=== PATIENT | male | born 1945 | race Caucasian/White ===

== ENCOUNTER 2022-06-20 11:02 | Outpatient (REF) | payer OTHER, SELFPAY ==
[2022-06-20 14:10] LABS: MANUAL DIFF FLAG NO
[2022-06-20 14:15] LABS: Basophils Absolute Auto 0.1 X10*3/uL (0.0-0.2); Eosinophils Absolute Auto 0.2 X10*3/uL (0.0-0.4); Eosinophils Percent Auto 2.2 % (0-4); Hemoglobin 13.7 g/dl (14.0-18.0); Imm Gran Abs Auto 0.03 X10*3/uL (0.00-0.03); Imm Gran Pct Auto 0.4 % (0.0-0.4); Lymphocytes Absolute Auto 2.3 X10*3/uL (1.2-4.9); Lymphocytes Percent Auto 31.8 % (20-40); Mean Corpuscular HGB Conc 31.9 g/dl (31.0-36.0); Mean Corpuscular Hemoglobin 29.1 pg (27.0-33.0); Mean Corpuscular Volume 91.5 fL (80.0-98.0); Mean Platelet Volume 9.9 fL (9.4-12.4); Monocytes Absolute Auto 0.8 X10*3/uL (0.1-1.2); Monocytes Percent Auto 11.1 % (2-11); Neutrophils Absolute Auto 3.8 x10*3/uL (2.0-8.3); Neutrophils Percent Auto 53.5 % (45-73); Platelet Count 325 X10*3/uL (160-400); Red Cell Distribution Width 13.2 % (11.0-16.0); White Blood Count 7.2 X10*3/uL (4.8-10.8)
[2022-06-20 14:26] LABS: Alanine Aminotransferase 29 U/L (0-40); Albumin Level 4.3 g/dL (3.5-5.0); Alkaline Phosphatase 78 U/L (39-117); Anion Gap 14 (12-20); Aspartate Amino Transferase 26 U/L (5-37); Bilirubin Total 0.3 mg/dL (0.0-1.0); Blood Urea Nitrogen 13 mg/dL (9-16); Calcium 10.2 mg/dL (8.4-10.2); Carbon Dioxide 27 mmol/L (22-29); Chloride 104 mmol/L (96-108); Cholesterol 146 mg/dL; Estimated Glomerular Filt Rate > 60; Glucose Fasting 93 mg/dL (60-99); HDL Cholesterol 61 mg/dL; LDL Cholesterol Calculated 67 mg/dl; Potassium 4.9 mmol/L (3.3-5.1); Sodium 140 mmol/L (135-145); Total Protein 7.1 g/dL (6.5-8.0); Triglycerides 94 mg/dL
[2022-06-20 14:54] LABS: Prostate Specific Antigen Scr 4.67 ng/mL (<0.05-4.0)
== END 2022-06-20 11:03 | disposition home or self-care (01) ==
LOC: HO.10HDL 11:02
PROVIDERS: Visit Provider Internal Medicine
DX: Z12.5 Encounter for screening for malignant neoplasm of prostate (principal); I10 Essential (primary) hypertension; E78.00 Pure hypercholesterolemia, unspecified; R35.1 Nocturia
CPT/HCPCS: 36415; 80053; 80061; 84153; 85025

== ENCOUNTER 2022-07-25 10:48 | Outpatient (REF) | payer OTHER, SELFPAY ==
--- NOTE | ~2022-07-25 | MR_ITS ---
EXAMINATION: MR BRAIN WITHOUT AND WITH CONTRAST CLINICAL INFORMATION: Left sensorineural hearing loss COMPARISON: None TECHNIQUE: Multiplanar multisequence MR imaging of the brain was obtained without and following the administration of 9 mL Gadavist intravenous contrast. FINDINGS: The 7th and 8th cranial nerve complexes are symmetric in course, caliber, and enhancement characteristics. Major inner ear structures including the cochlea, semicircular canals, and vestibule are symmetric in morphology and demonstrate normal CSF signal. No enhancing intracanalicular or cerebellopontine angle mass lesion is visualized. There is no acute infarct on diffusion-weighted imaging. There is no intracranial hemorrhage on iron-sensitive imaging. No extra-axial collection or mass effect/herniation. Scattered periventricular and deep white matter T2 FLAIR hyperintensities consistent with mild underlying microangiopathy. No hydrocephalus. The ventricles are normal in morphology and size. No abnormal parenchymal or extra-axial enhancement. The major flow voids at the skull base are preserved. The midline structures are normal. The cerebellar tonsils are normally positioned. The craniocervical junction is normal. Marrow signal is within normal limits. The visualized soft tissues are without significant abnormality. Left mastoid effusion. MR/MR head/brain wo/w con IMPRESSION: 1. No evidence of retrocochlear pathology 2. Left mastoid effusion
--- NOTE | ~2022-07-25 | XR_ITS ---
EXAMINATION: PRE-MRI SCREENING NECK. CLINICAL INFORMATION: Remote history of parotid surgery and radiation seeds COMPARISON: None TECHNIQUE: 2 views. FINDINGS: There are several surgical danielle seen in the right parotid region from previous surgery. No radiation metallic seeds are seen at this time. Visualized sinuses and mastoid air cells are clear. There is grade 1 anterolisthesis C4 over C5 with degenerative disc changes C5-C6 and C6-C7 disc levels with ventral and posterior spondylosis. No acute fracture or dislocation seen. XR/XR pre mri screening IMPRESSION: 1. Several surgical danielle are seen in the right parotid region from previous surgery. No radiation metallic seeds are seen at this time. 2. Grade 1 anterolisthesis C4 over C5 with degenerative disc changes C5-C6 and C6-C7 disc levels.
== END 2022-07-25 10:49 | disposition home or self-care (01) ==
LOC: HO.MRI 10:48
PROVIDERS: Visit Provider Otolaryngology
DX: D33.3 Benign neoplasm of cranial nerves (principal); H90.42 Sensorineural hearing loss, unilateral, left ear, with unrestricted hearing on the contralateral side
CPT/HCPCS: 70553; A9585

== ENCOUNTER 2022-11-12 14:42 | Outpatient (REF) | payer OTHER, SELFPAY ==
--- NOTE | ~2022-11-12 | XR_ITS ---
EXAMINATION: XR CHEST CLINICAL INFORMATION: Wheezing and cough x2 weeks COMPARISON: None TECHNIQUE: 2 views of the chest were obtained. FINDINGS: No significant abnormality is noted involving the heart, lungs, mediastinum, bony thorax or soft tissues. XR/XR chest 2V IMPRESSION: Unremarkable chest examination.
== END 2022-11-12 14:43 | disposition home or self-care (01) ==
LOC: HO.XRAY 14:42
PROVIDERS: PCP Internal Medicine; Visit Provider Internal Medicine
DX: R05.9 Cough, unspecified (principal); R06.2 Wheezing
CPT/HCPCS: 71046

== ENCOUNTER 2023-03-27 09:15 | Outpatient (REF) | payer OTHER, SELFPAY ==
[2023-03-27 12:02] LABS: Anion Gap 10 (12-20); Blood Urea Nitrogen 9 mg/dL (9-16); Carbon Dioxide 27 mmol/L (22-29); Chloride 108 mmol/L (96-108); Estimated Glomerular Filt Rate > 60; Glucose Random 93 mg/dL (60-115); Potassium 4.5 mmol/L (3.3-5.1); Sodium 140 mmol/L (135-145)
[2023-03-27 14:49] LABS: PSA,Total (Free>4and<10) 4.71 ng/mL (0.00-4.00)
[2023-03-28 12:28] LABS: Free Prostate Spec Ag 0.9 ng/mL; Percent Free Prostate Spec Ag 18 % (calc) (>25); Prostate Specific Ag Total 4.9 ng/mL (< OR = 4.0)
== END 2023-03-27 09:16 | disposition home or self-care (01) ==
LOC: HO.WFDLDS 09:15
PROVIDERS: Visit Provider Internal Medicine
DX: Z12.5 Encounter for screening for malignant neoplasm of prostate (principal); I10 Essential (primary) hypertension; R97.20 Elevated prostate specific antigen [PSA]
CPT/HCPCS: 36415; 80048; 84153; 84154

== ENCOUNTER 2023-06-24 07:54 | Outpatient (REF) | payer OTHER, SELFPAY ==
[2023-06-24 12:14] LABS: PSA,Total (Free>4and<10) 6.42 ng/mL (0.00-4.00)
[2023-06-25 10:54] LABS: Percent Free Prostate Spec Ag 17 % (calc) (>25); Prostate Specific Ag Total 5.9 ng/mL (< OR = 4.0)
== END 2023-06-24 07:55 | disposition home or self-care (01) ==
LOC: HO.WFDLDS 07:54
PROVIDERS: Visit Provider Internal Medicine
DX: Z12.5 Encounter for screening for malignant neoplasm of prostate (principal); R97.20 Elevated prostate specific antigen [PSA]
CPT/HCPCS: 36415; 84153; 84154

== ENCOUNTER 2023-08-09 09:53 | Outpatient (AMB) | payer OTHER, SELFPAY ==
--- NOTE | 2023-08-09 10:02 | A.OFFVIS_ITS ---
Intake Intake Visit Reasons: Elevated PSA free 17 Intake Note: New Patient presents for initial visit for elevated psa (psa 6.42) Urology Medications: none Blood Thinner: none Time Study Engineer Required: No Accompanied by: Self / Same As Patient Allergies codeine Allergy (Verified 08/09/23 11:02) Fainting Medication List - Last Reconciled 08/09/23 by MAURICE Rendon lorazepam 0.5 mg PO TID PRN losartan 50 mg PO DAILY omeprazole 40 mg PO DAILY simvastatin 20 mg PO BEDTIME HPI HPI Comments History of Present Illness Details Zach Ford is a very pleasant 78-year-old male patient of Dr. Hernández. He has a past medical history of anxiety, allergic rhinitis, hypercholesteremia, GERD, hypertension, and overweight. He presents to the office today as a new patient for elevated PSA. In discussion with the patient today reports following up with his PCP at which time his PSA was noted to be elevated and recommendations were made for urology referral. PSAs are as follows: 06/23--4.7 03/24--4.9 and% free PSA 18 06/24--6.4 06/24--6.0 and% free PSA 17 Discussed at length potential causes for elevated PSA. He does report nocturia up to 3 times per night however does not find this bothersome. He otherwise denies any urinary issues or concerns at this time. He denies urinary urgency, urinary frequency, incontinence, hematuria, dysuria, foul smelling urine, changes to urinary stream, flank pain, fever, and or chills. He is happy with his current voiding parameters. He discusses having been in the as well as recently losing his . He discusses having had 2 marriages and losing both of his wives. In office LUPE performed; smooth and no suspicious nodules palpated. In office urinalysis results reviewed with the patient today. When asked he denies any known family history of prostate cancer. He otherwise offers no other issues or concerns at this time. REPLACED BY [facility] Medical History (Updated 08/09/23 @ 11:01 by MAURICE Rendon) Generalized anxiety disorder Allergic rhinitis due to pollen Benign prostatic hyperplasia without lower urinary tract symptoms Persons encountering health services in other specified circumstances Pure hypercholesterolemia, unspecified Gastro-esophageal reflux disease without esophagitis Essential (primary) hypertension Acute cough Wheezing Overweight Elevated prostate specific antigen [PSA] Review of Systems Const Reports as per HPI Eyes Reports no additional complaints ENT Reports no additional complaints Card Reports as per HPI Resp Reports no additional complaints GI Reports as per HPI Reports as per HPI Musc Reports no additional complaints Neuro Reports no additional complaints Psych Reports no additional complaints Endo Reports no additional complaints Jorge/Lymph Reports no additional complaints Aller/Immun Reports no additional complaints Physical Exam Const General: cooperative, healthy appearing, comfortable, no acute distress, well developed, alert and awake Orientation/consciousness: patient oriented x3 Limitations: wheelchair HEENT Head: Yes normal to inspection, Yes normocephalic and Yes atraumatic Ears: hearing grossly normal bilaterally Eyes General: appearance normal, both eyes and all related structures Neck Neck: Yes normal visual inspection and Yes trachea midline Chest Chest palpation & inspection: normal inspection of the chest Resp Effort & Inspection: normal respiratory effort and able to speak in complete sentences Cardio Rate: regular rate GI Inspection: Yes normal to inspection Rectal Exam - Male: Yes visual inspection normal, Yes normal sphincter tone and Yes prostate normal General: Yes no CVA tenderness Back/Spine/Pelvis Back: no CVA tenderness Skin General skin exam: no rashes or lesions noted Neuro General: patient oriented x3 Extrem General: Yes normal to inspection Psych Appearance: grossly normal and well kempt Mental Status: mental status grossly normal Speech and movement: Normal speech and movement present and Clear speech present Affect: normal affect Attitude: cooperative Thought process: Normal thought process present Thought content: Normal thought content present Insight: Good insight present (Psych) Judgement: Good judgement present (Psych) Results AMB Urinalysis, Automated UA Leukoctes 0 Conchita/uL Last Edit by [employer] on 08/09/23 10:41 UA Nitrite Negative Last Edit by [employer] on 08/09/23 10:41 UA Urobilinogen 0.2 mg/dL Last Edit by [employer] on 08/09/23 10:41 UA Protein 15 mg/dL Last Edit by [employer] on 08/09/23 10:41 UA pH 6.0 Last Edit by [employer] on 08/09/23 10:41 UA Blood 0 Stevie/uL Last Edit by [employer] on 08/09/23 10:41 UA Specific [place] 1.025 Last Edit by [employer] on 08/09/23 10:41 UA Ketone Negative Last Edit by Barry Valerio on 08/09/23 10:41 UA Bilirubin 0 mg/dL Last Edit by Barry Valerio on 08/09/23 10:41 UA Glucose 0 mg/dL Last Edit by Barry Valerio on 08/09/23 10:41 Results Reviewed Results Reviewed: Laboratory Last Values Urine pH (Auto) 6.0 08/09/23 10:37 Specific [place] (Auto) 1.025 08/09/23 10:37 Urine Protein (Auto) 15 mg/dL 08/09/23 10:37 Glucose (UA)(Auto) 0 mg/dL 08/09/23 10:37 Urine Ketones (Auto) Negative 08/09/23 10:37 Urine Blood (Auto) 0 Stevie/uL 08/09/23 10:37 Urine Nitrite (Auto) Negative 08/09/23 10:37 Urine Bilirubin (Auto) 0 mg/dL 08/09/23 10:37 Urine Urobilinogen (Auto) 0.2 mg/dL 08/09/23 10:37 Leukocyte Esterase (Auto) 0 Conchita/uL 08/09/23 10:37 Assessment & Plan Assessment & Plan (1) Nocturia: Code(s): R35.1 - Nocturia (2) Elevated prostate specific antigen [PSA]: Code(s): R97.20 - Elevated prostate specific antigen [PSA] Plan In office urinalysis results reviewed with the patient today; as noted above. Recent PSA results reviewed with the patient today; as noted above. LUPE; smooth and no suspicious nodules palpated. Discussed at length potential causes for elevated PSA Discussed redraw of PSA with no sex the night before, no caffeine morning of, no heavy lifting 1-2 days prior. Discussed obtaining retroperitoneal ultrasound for further assessment evaluation. Patient otherwise denies any bothersome urinary issues or concerns. Patient reports to be happy with current voiding parameters. Follow-up in 1-2 months with labs and imaging to be completed prior; or sooner with any issues, concerns, and or questions. Orders: Orders PSA,Total (Free>4and<10) 08/09/23 R97.20 - Elevated prostate specific antigen [PSA] AMB Urinalysis Automated 08/09/23 Z13.9 - Encounter for screening, unspecified US retroperitoneal comp 08/09/23 R35.1 - Nocturia, R97.20 - Elevated prostate specific antigen [PSA] Patient Instructions: The patient had an opportunity to ask questions regarding the treatment plan. All questions were answered. Physical exam, labs, and imaging were discussed and reviewed in detail. As well as risks, benefits, and discussion of treatment choices. No major barriers to understanding were identified. The patient expressed understanding and agreement with the above treatment plan. The patient was made aware they should contact our office by phone for worsening of their current condition, the appearance of new symptoms, or with any questions or concerns. Compliance is encouraged with any medications and follow up testing that is ordered. It is a privilege to be allowed the opportunity to participate in? your urological care.? Again, if you have any questions or concerns If you have any questions or concerns please do not hesitate to contact me. The office is [phone]. This note is constructed using voice recognition software. While every effort has been made to ensure accuracy environmental director errors may have been included. Yours sincerely, MAURICE Rendon Coding Level of Care Code New Pt Level 3 (78066) Diagnoses Nocturia R35.1 Elevated prostate specific antigen [PSA] R97.20
== END 2023-08-09 10:35 | disposition home or self-care (01) ==
PROVIDERS: PCP Internal Medicine; Visit Provider Nurse Practitioner Family
DX: R35.1 Nocturia (principal); R97.20 Elevated prostate specific antigen [PSA]
CPT/HCPCS: 99203

== ENCOUNTER → 2023-08-09 09:53 | Outpatient (BNVA) | payer OTHER, SELFPAY | PROVIDERS: PCP Internal Medicine; Visit Provider Nurse Practitioner Family | DX: R35.1 Nocturia (principal); R97.20 Elevated prostate specific antigen [PSA] | CPT/HCPCS: 81003; 99202 ==

== ENCOUNTER 2023-08-20 09:59 | Outpatient (REF) | payer OTHER, SELFPAY ==
[2023-08-20 12:07] LABS: PSA,Total (Free>4and<10) 6.26 ng/mL (0.00-4.00)
[2023-08-21 12:14] LABS: Free Prostate Spec Ag 1.3 ng/mL; Percent Free Prostate Spec Ag 18 % (calc) (>25); Prostate Specific Ag Total 7.4 ng/mL (< OR = 4.0)
== END 2023-08-20 10:00 | disposition home or self-care (01) ==
LOC: HO.WFDLDS 09:59
PROVIDERS: Visit Provider Nurse Practitioner Family
DX: R97.20 Elevated prostate specific antigen [PSA] (principal); Z12.5 Encounter for screening for malignant neoplasm of prostate
CPT/HCPCS: 36415; 84153; 84154

== ENCOUNTER 2023-08-30 13:06 | Outpatient (REF) | payer OTHER, SELFPAY | END 2023-08-30 13:07 | disposition home or self-care (01) | LOC: HO.US 13:06 | PROVIDERS: PCP Internal Medicine; Visit Provider Nurse Practitioner Family | DX: R35.1 Nocturia (principal); R97.20 Elevated prostate specific antigen [PSA] | CPT/HCPCS: 76770 ==

== ENCOUNTER 2023-09-11 10:31 | Outpatient (AMB) | payer OTHER, SELFPAY ==
--- NOTE | 2023-09-11 10:37 | MHC.OFFVIS ---
Intake Intake Visit Reasons: 5w/US/PSA Intake Note: Patient presents for initial visit for ultrasound results, elevated psa (psa 6.26) (imaging 08/30/23) Urology Medications: none Blood Thinner: none Mason Helper Required: No Accompanied by: Self / Same As Patient Allergies codeine Allergy (Verified 09/11/23 11:20) Fainting Medication List - Last Reconciled 09/11/23 by JUSTYNA RendonP- finasteride 5 mg PO DAILY 90 days lorazepam 0.5 mg PO TID PRN losartan 50 mg PO DAILY omeprazole 40 mg PO DAILY simvastatin 20 mg PO BEDTIME HPI HPI Comments History of Present Illness Details Zach Ford is a very pleasant 78-year-old male patient of Dr. Hernández. He has a past medical history of anxiety, allergic rhinitis, hypercholesteremia, GERD, hypertension, and overweight. He presents to the office today for follow-up. Of note, patient was seen approximately 2 months ago as a new patient for elevated PSA at which time a retroperitoneal ultrasound was ordered as well as redraw of PSA. These results reviewed with the patient today. Bilateral kidneys with no calculi, lesions, and or hydronephrosis noted. The bladder is well distended and normal. Pre void bladder volume is approximately 160 mL. Postvoid bladder volume is approximately 20 mL. Prostate volume is approximately 35 mL. PSAs are as follows: 06/23--4.7 03/24--4.9 and% free PSA 18 06/24--6.4 06/24--6.0 and% free PSA 17% 08/24--7.4 and % free PSA 18% Discussed at length potential causes for elevated PSA. He does report nocturia up to 3 times per night however does not find this bothersome. He otherwise denies any urinary issues or concerns at this time. He denies urinary urgency, urinary frequency, incontinence, hematuria, dysuria, foul smelling urine, changes to urinary stream, flank pain, fever, and or chills. He is happy with his current voiding parameters. He discusses having been in the as well as recently losing his . He discusses having had 2 marriages and losing both of his wives. Previous in office LUPE performed; smooth and no suspicious nodules palpated. In office urinalysis results reviewed with the patient today. When asked he denies any known family history of prostate cancer. Reviewed PCP T risk calculator 67% negative for prostate cancer, 20% low-grade prostate cancer, and 13% high-grade prostate cancer discussed at length further treatment options with prostate biopsy verses trial finasteride verses surveillance monitoring. Discussed risks and benefits of these treatment options at length. He otherwise offers no other issues or concerns at this time. [facility] Medical History Generalized anxiety disorder Allergic rhinitis due to pollen Benign prostatic hyperplasia without lower urinary tract symptoms Persons encountering health services in other specified circumstances Pure hypercholesterolemia, unspecified Gastro-esophageal reflux disease without esophagitis Essential (primary) hypertension Acute cough Wheezing Overweight Elevated prostate specific antigen [PSA] Review of Systems Const Reports as per HPI Eyes Reports no additional complaints ENT Reports no additional complaints Card Reports as per HPI Resp Reports no additional complaints GI Reports as per HPI Reports as per HPI Musc Reports no additional complaints Neuro Reports no additional complaints Psych Reports no additional complaints Endo Reports no additional complaints Jorge/Lymph Reports no additional complaints Aller/Immun Reports no additional complaints Physical Exam Const General: cooperative, healthy appearing, comfortable, no acute distress, well developed, alert and awake Orientation/consciousness: patient oriented x3 Limitations: wheelchair HEENT Head: Yes normal to inspection, Yes normocephalic and Yes atraumatic Ears: hearing grossly normal bilaterally Eyes General: appearance normal, both eyes and all related structures Neck Neck: Yes normal visual inspection and Yes trachea midline Chest Chest palpation & inspection: normal inspection of the chest Resp Effort & Inspection: normal respiratory effort and able to speak in complete sentences Cardio Rate: regular rate GI Inspection: Yes normal to inspection Rectal Exam - Male: Yes visual inspection normal, Yes normal sphincter tone and Yes prostate normal General: Yes no CVA tenderness Back/Spine/Pelvis Back: no CVA tenderness Skin General skin exam: no rashes or lesions noted Neuro General: patient oriented x3 Extrem General: Yes normal to inspection Psych Appearance: grossly normal and well kempt Mental Status: mental status grossly normal Speech and movement: Normal speech and movement present and Clear speech present Affect: normal affect Attitude: cooperative Thought process: Normal thought process present Thought content: Normal thought content present Insight: Good insight present (Psych) Judgement: Good judgement present (Psych) Results AMB Urinalysis, Automated UA Leukoctes 0 Conchita/uL Last Edit by Barry Loganss on 09/11/23 10:53 UA Nitrite Negative Last Edit by [email or web address] on 09/11/23 10:53 UA Urobilinogen 0.2 mg/dL Last Edit by [employer] Valerio on 09/11/23 10:53 UA Protein 30 mg/dL Last Edit by Barry Valerio on 09/11/23 10:53 UA pH 6.0 Last Edit by [employer] Valerio on 09/11/23 10:53 UA Blood 0 Stevie/uL Last Edit by [email or web address] on 09/11/23 10:53 UA Specific [place] 1.015 Last Edit by [email or web address] on 09/11/23 10:53 UA Ketone Negative Last Edit by [employer] Valerio on 09/11/23 10:53 UA Bilirubin 0 mg/dL Last Edit by [employer] Valerio on 09/11/23 10:53 UA Glucose 0 mg/dL Last Edit by [employer] Valerio on 09/11/23 10:53 Results Reviewed Results Reviewed: Laboratory Last Values Urine pH (Auto) 6.0 09/11/23 10:41 [address] [place] (Auto) 1.015 09/11/23 10:41 Urine Protein (Auto) 30 mg/dL 09/11/23 10:41 Glucose (UA)(Auto) 0 mg/dL 09/11/23 10:41 Urine Ketones (Auto) Negative 09/11/23 10:41 Urine Blood (Auto) 0 Stevie/uL 09/11/23 10:41 Urine Nitrite (Auto) Negative 09/11/23 10:41 Urine Bilirubin (Auto) 0 mg/dL 09/11/23 10:41 Urine Urobilinogen (Auto) 0.2 mg/dL 09/11/23 10:41 Leukocyte Esterase (Auto) 0 Conchita/uL 09/11/23 10:41 Date of Service: 08/30/23 EXAMINATION: US RETROPERITONEAL COMPLETE (RENAL) FINDINGS: RIGHT KIDNEY: 12.8 x 5.4 x 6.4 cm (SAG x AP x TRV). The kidney is normal in size, contour, and echogenicity. Renal cortical thickness is normal. No calculi or focal parenchymal lesions. No hydronephrosis. LEFT KIDNEY: 11.1 x 4.9 x 4.9 cm (SAG x AP x TRV). The kidney is normal in size, contour, and echogenicity. Renal cortical thickness is normal. No calculi or focal parenchymal lesions. No hydronephrosis. BLADDER: Well distended and normal. Bilateral ureteral jets are demonstrated. Prevoid bladder volume is 159 mL. Postvoid bladder volume is 21 mL. ADDITIONAL FINDINGS: Prostatic volume 35 mL. IMPRESSION: 1. No hydronephrosis or nephrolithiasis. 2. Enlarged prostate. 3. Minimal residual post void volume in the urinary bladder. Assessment & Plan Assessment & Plan (1) Elevated prostate specific antigen [PSA]: Code(s): R97.20 - Elevated prostate specific antigen [PSA] (2) Enlarged prostate: Code(s): N40.0 - Benign prostatic hyperplasia without lower urinary tract symptoms (3) Nocturia: Code(s): R35.1 - Nocturia Plan In office urinalysis results reviewed with the patient today; as noted above. Recent PSA results reviewed with the patient today; as noted above. Recent retroperitoneal ultrasound results reviewed with the patient today; as noted above Discussed at length potential causes for elevated PSA Discussed further treatment options with surveillance monitoring versus prostate biopsy verses trial of finasteride; discussed risks and benefits of these interventions at length. Patient otherwise denies any bothersome urinary issues or concerns. Patient reports to be happy with current voiding parameters. Follow-up in 4 months with lab to be completed prior; or sooner with any issues, concerns, and or questions. Orders: Orders PSA,Total (Free>4and<10) Today N40.0 - Benign prostatic hyperplasia without lower urinary tract symptoms, R97.20 - Elevated prostate specific antigen [PSA] AMB Urinalysis Automated Today Z13.9 - Encounter for screening, unspecified Medications: New finasteride 5 mg PO DAILY 90 days 90 tabs 1RF Patient Instructions: The patient had an opportunity to ask questions regarding the treatment plan. All questions were answered. Physical exam, labs, and imaging were discussed and reviewed in detail. As well as risks, benefits, and discussion of treatment choices. No major barriers to understanding were identified. The patient expressed understanding and agreement with the above treatment plan. The patient was made aware they should contact our office by phone for worsening of their current condition, the appearance of new symptoms, or with any questions or concerns. Compliance is encouraged with any medications and follow up testing that is ordered. It is a privilege to be allowed the opportunity to participate in? your urological care.? Again, if you have any questions or concerns If you have any questions or concerns please do not hesitate to contact me. The office is [phone]. This note is constructed using voice recognition software. While every effort has been made to ensure accuracy parcel contractor errors may have been included. Yours sincerely, MAURICE Rendon Coding Level of Care Code Est Pt Level 4 (96698) Diagnoses Elevated prostate specific antigen [PSA] R97.20 Enlarged prostate N40.0 Nocturia R35.1
== END 2023-09-11 11:22 | disposition home or self-care (01) ==
PROVIDERS: PCP Internal Medicine; Visit Provider Nurse Practitioner Family
DX: R97.20 Elevated prostate specific antigen [PSA] (principal); N40.0 Benign prostatic hyperplasia without lower urinary tract symptoms; R35.1 Nocturia; Z13.9 Encounter for screening, unspecified
CPT/HCPCS: 99214

== ENCOUNTER → 2023-09-11 10:31 | Outpatient (BNVA) | payer OTHER, SELFPAY | PROVIDERS: PCP Internal Medicine; Visit Provider Nurse Practitioner Family | DX: R97.20 Elevated prostate specific antigen [PSA] (principal); N40.0 Benign prostatic hyperplasia without lower urinary tract symptoms; R35.1 Nocturia | CPT/HCPCS: 81003; 99212 ==

== ENCOUNTER 2024-01-01 16:44 | Outpatient (REF) | payer OTHER, SELFPAY ==
--- NOTE | ~2024-01-01 | XR_ITS ---
EXAMINATION: XR CHEST CLINICAL INFORMATION: Cough, rule out pneumonia. COMPARISON: None available. TECHNIQUE: 2 views of the chest were obtained. FINDINGS: The lung volumes are low. There is no gross pneumothorax. No new focal consolidation. No pleural effusion. Heart size within normal limits allowing for low lung volumes. No pleural effusion. Mild degenerative changes in the thoracic spine. XR/XR chest 2V IMPRESSION: Low lung volumes. No new focal consolidation to suggest pneumonia.
[2024-01-01 18:39] LABS: Influenza A PCR NEGATIVE (Negative); Influenza B PCR NEGATIVE (Negative); Resp Syncy Virus RNA Qual PCR NEGATIVE (Negative); SARS COV2 PCR INHOUSE NEGATIVE (Negative)
== END 2024-01-01 16:45 | disposition home or self-care (01) ==
LOC: HO.XRAY 16:44
PROVIDERS: PCP Internal Medicine; Visit Provider Internal Medicine
DX: Z11.52 Encounter for screening for COVID-19 (principal); R05.9 Cough, unspecified
CPT/HCPCS: 0241U; 71046

== ENCOUNTER 2024-01-03 10:15 | Outpatient (REF) | payer OTHER, SELFPAY | END 2024-01-03 10:16 | disposition home or self-care (01) | LOC: HO.WFDLDS 10:15 | PROVIDERS: Visit Provider Nurse Practitioner Family | DX: N40.0 Benign prostatic hyperplasia without lower urinary tract symptoms (principal); R97.20 Elevated prostate specific antigen [PSA]; Z12.5 Encounter for screening for malignant neoplasm of prostate | CPT/HCPCS: 36415; 84153 ==

== ENCOUNTER 2024-01-13 09:51 | Outpatient (AMB) | payer OTHER, SELFPAY ==
--- NOTE | 2024-01-13 10:00 | MHC.OFFVIS ---
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 Hernández. He has a past medical history of anxiety, allergic rhinitis, hypercholesteremia, GERD, hypertension, and overweight. He presents to the office today for follow-up of his elevated PSA. In discussion with the patient today he reports to be doing and feeling well. He reports having recently came back from [place] and having caught a cold that he has since been following up with his PCP for. Recent PSA results reviewed with the patient today as noted and trended below. 06/23 4.7, 03/24 4.9 and% free PSA 18, 06/24 6.4, 06/24 6.0 and% free PSA 17%, 08/24 7.4 and % free PSA 18% 12/24 2.4 Previous workup has included a retroperitoneal ultrasound noting bilateral kidneys with no calculi, lesions, and or hydronephrosis noted. The bladder is well distended and normal. Pre void bladder volume is approximately 160 mL. Postvoid bladder volume is approximately 20 mL. Prostate volume is approximately 35 mL. Discussed significant decrease/drop in PSA. He reports compliance with 5 mg of finasteride as prescribed. He does report noting increase urinary frequency and urgency with episodes of nocturia since he caught his cold coming back here from [place]. He otherwise denies incontinence, hematuria, dysuria, foul smelling urine, changes to urinary stream, flank pain, fever, and or chills. In office urinalysis results reviewed with the patient today. He otherwise offers no other issues or concerns at this time. COUNTS INCLUDE 234 BEDS AT THE [facility] Medical History Generalized anxiety disorder Allergic rhinitis due to pollen Benign prostatic hyperplasia without lower urinary tract symptoms Persons encountering health services in other specified circumstances Pure hypercholesterolemia, unspecified Gastro-esophageal reflux disease without esophagitis Essential (primary) hypertension Acute cough Wheezing Overweight Elevated prostate specific antigen [PSA] Review of Systems Const Reports as per HPI Eyes Reports no additional complaints ENT Reports no additional complaints Card Reports as per HPI Resp Reports no additional complaints GI Reports as per HPI Reports as per HPI Musc Reports no additional complaints Neuro Reports no additional complaints Psych Reports no additional complaints Endo Reports no additional complaints Jorge/Lymph Reports no additional complaints Aller/Immun Reports no additional complaints Physical Exam Const General: cooperative, healthy appearing, comfortable, no acute distress, well developed, alert and awake Orientation/consciousness: patient oriented x3 Limitations: wheelchair HEENT Head: Yes normal to inspection, Yes normocephalic and Yes atraumatic Ears: hearing grossly normal bilaterally Eyes General: appearance normal, both eyes and all related structures Neck Neck: Yes normal visual inspection and Yes trachea midline Chest Chest palpation & inspection: normal inspection of the chest Resp Effort & Inspection: normal respiratory effort and able to speak in complete sentences Cardio Rate: regular rate GI Inspection: Yes normal to inspection Rectal Exam - Male: Yes visual inspection normal, Yes normal sphincter tone and Yes prostate normal General: Yes no CVA tenderness Back/Spine/Pelvis Back: no CVA tenderness Skin General skin exam: no rashes or lesions noted Neuro General: patient oriented x3 Extrem General: Yes normal to inspection Psych Appearance: grossly normal and well kempt Mental Status: mental status grossly normal Speech and movement: Normal speech and movement present and Clear speech present Affect: normal affect Attitude: cooperative Thought process: Normal thought process present Thought content: Normal thought content present Insight: Good insight present (Psych) Judgement: Good judgement present (Psych) Results AMB Urinalysis, Automated UA Leukoctes 0 Conchita/uL Last Edit by [employer] on 01/13/24 10:13 UA Nitrite Negative Last Edit by [employer] on 01/13/24 10:13 UA Urobilinogen 0.2 mg/dL Last Edit by [employer] on 01/13/24 10:13 UA Protein 15 mg/dL Last Edit by [employer] on 01/13/24 10:13 UA pH 6.0 Last Edit by [employer] on 01/13/24 10:13 UA Blood 0 Stevie/uL Last Edit by Antoniocurryyi [employer] on 01/13/24 10:13 UA Specific Aromas 1.020 Last Edit by Barry Doreenemerald on 01/13/24 10:13 UA Ketone Negative Last Edit by Antoniocurryyi [employer] on 01/13/24 10:13 UA Bilirubin 0 mg/dL Last Edit by Antonioabelino Doreenemerald on 01/13/24 10:13 UA Glucose 0 mg/dL Last Edit by Barry Doreenemerald on 01/13/24 10:13 Results Reviewed Results Reviewed: Laboratory Last Values Urine pH (Auto) 6.0 01/13/24 10:03 Specific Aromas (Auto) 1.020 01/13/24 10:03 Urine Protein (Auto) 15 mg/dL 01/13/24 10:03 Glucose (UA)(Auto) 0 mg/dL 01/13/24 10:03 Urine Ketones (Auto) Negative 01/13/24 10:03 Urine Blood (Auto) 0 Stevie/uL 01/13/24 10:03 Urine Nitrite (Auto) Negative 01/13/24 10:03 Urine Bilirubin (Auto) 0 mg/dL 01/13/24 10:03 Urine Urobilinogen (Auto) 0.2 mg/dL 01/13/24 10:03 Leukocyte Esterase (Auto) 0 Conchita/uL 01/13/24 10:03 Assessment & Plan Assessment & Plan (1) Elevated prostate specific antigen [PSA]: Code(s): R97.20 - Elevated prostate specific antigen [PSA] Category: Medical (2) Nocturia: Code(s): R35.1 - Nocturia Category: Medical (3) Enlarged prostate: Code(s): N40.0 - Benign prostatic hyperplasia without lower urinary tract symptoms Category: Medical Plan In office urinalysis results reviewed with the patient today; as noted above. Recent PSA results reviewed with the patient today; as noted above. Continue finasteride 5 mg daily as discussed and prescribed. Start Flomax 0.4 mg. Discussed bladder triggers/irritants. Discussed limiting fluids 2-3 hours prior to bed to decrease episodes of nocturia. Discussed at length potential causes for lower urinary tract symptoms patient is experiencing. Will obtain redraw of PSA in 4 months. Follow-up in 4 months with PSAto be completed prior; or sooner with any issues, concerns, and or questions. Orders: Orders Prostate Specific Antigen 4 Months N40.0 - Benign prostatic hyperplasia without lower urinary tract symptoms, R35.1 - Nocturia, R97.20 - Elevated prostate specific antigen [PSA] AMB Urinalysis Automated Today Z13.9 - Encounter for screening, unspecified Medications: New tamsulosin 0.4 mg PO BEDTIME 30 caps 1RF 30 days N40.1 - Benign prostatic hyperplasia with lower urinary tract symptoms, R35.1 - Nocturia Patient Instructions: The patient had an opportunity to ask questions regarding the treatment plan. All questions were answered. Physical exam, labs, and imaging were discussed and reviewed in detail. As well as risks, benefits, and discussion of treatment choices. No major barriers to understanding were identified. The patient expressed understanding and agreement with the above treatment plan. The patient was made aware they should contact our office by phone for worsening of their current condition, the appearance of new symptoms, or with any questions or concerns. Compliance is encouraged with any medications and follow up testing that is ordered. It is a privilege to be allowed the opportunity to participate in? your urological care.? Again, if you have any questions or concerns If you have any questions or concerns please do not hesitate to contact me. The office is [phone]. This note is constructed using voice recognition software. While every effort has been made to ensure accuracy claim manager errors may have been included. Yours sincerely, MAURICE Rendon Coding Level of Care Code Est Pt Level 4 (38397) Diagnoses Elevated prostate specific antigen [PSA] R97.20 Nocturia R35.1 Enlarged prostate N40.0
== END 2024-01-13 10:22 | disposition home or self-care (01) ==
PROVIDERS: PCP Internal Medicine; Referring Provider Internal Medicine; Visit Provider Nurse Practitioner Family
DX: R97.20 Elevated prostate specific antigen [PSA] (principal); R35.1 Nocturia; N40.0 Benign prostatic hyperplasia without lower urinary tract symptoms; Z13.9 Encounter for screening, unspecified
CPT/HCPCS: 99214

== ENCOUNTER → 2024-01-13 09:51 | Outpatient (BNVA) | payer OTHER, SELFPAY | PROVIDERS: PCP Internal Medicine; Visit Provider Nurse Practitioner Family | DX: R97.20 Elevated prostate specific antigen [PSA] (principal); R35.1 Nocturia; N40.0 Benign prostatic hyperplasia without lower urinary tract symptoms | CPT/HCPCS: 81003; 99212 ==

== ENCOUNTER 2024-03-25 12:48 | Outpatient (AMB) | payer OTHER, SELFPAY ==
--- NOTE | 2024-03-25 12:52 | A.OFFVIS_ITS ---
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 He is a pleasant 78-year-old male with longstanding history of hypertension hyperlipidemia. He said he has been generally very good health. Last April his and then his nephew arrange for him to travel to [place]. He said he walked all over the place and hiked and had no issues even including at the altitude. Subsequently in December he went to [place] and he was walking all over the place walking more than 10,000 steps a day and having no symptoms of shortness of breath. Said he has been active prior to that managing his land and doing gardening activity without significant shortness of breath. However after coming back from [place] I did get a sore throat and subsequently got a viral syndrome that lasted for a month. Following that he started noticing increasing shortness of breath with activity. He said with minimal activity such as gardening or when he rushes till he gets short of breath and then if he continues to pursue activity would get chest tightness. He has no clear wheezing or cough. Denies any clear orthopnea, PND, leg edema. Denies any prolonged palpitation, irregular heartbeat, lightheadedness, syncope. He is concerned about his reduction in exercise activity and is new onset shortness of breath. He said he has been taking all his medications regularly. Blood pressures been generally well controlled. [facility] Medical History Hyperlipidemia HTN (hypertension) Generalized anxiety disorder Allergic rhinitis due to pollen Benign prostatic hyperplasia without lower urinary tract symptoms Persons encountering health services in other specified circumstances Pure hypercholesterolemia, unspecified Gastro-esophageal reflux disease without esophagitis Essential (primary) hypertension Acute cough Wheezing Overweight Elevated prostate specific antigen [PSA] Surgical History Hx of surgical biopsy Family History Father No problems noted. Mother CAD (coronary artery disease) Social History Patient Tobacco Use Status: Former Tobacco user Review of Systems Const Denies chills, Denies daytime sleepiness, Denies fatigue, Denies fever(s), Denies frequent falls, Denies poor appetite, Denies snoring, Denies stops breathing during sleep, Denies weakness, Denies weight gain and Denies weight loss Eyes Denies loss of vision ENT Denies dizziness and Denies hearing loss Card Denies chest pain, Denies claudication, Denies leg edema, Denies li ghtheadedness, Denies palpitations, Denies dyspnea, Reports dyspnea on exertion and Denies orthopnea Resp Denies cough, Denies excessive phlegm production, Denies dyspnea, Reports dyspnea on exertion, Denies snoring and Denies wheezing GI Denies abdominal pain, Denies hematochezia, Denies change in bowel habits, Denies nausea and Denies vomiting Denies dysuria and Denies urinary frequency Musc Denies arthralgias, Denies muscle weakness, Denies numbness and Denies other (frequent falls) Skin/Breast Denies nail changes and Denies rash Neuro Denies Abnormal speech present, Denies dizziness, Denies frequent falls, Denies loss of vision, Denies memory loss, Denies numbness and Denies weakness Psych Denies depression and Denies memory loss Endo Denies fatigue and Denies palpitations Jorge/Lymph Reports easy bruising and Reports other (anemia) Aller/Immun Denies wheezing Physical Exam Vital Signs: Last Vital Signs Pulse 77 03/25/24 12:54 BP 130/82 03/25/24 12:54 BMI result Body Mass Index 30.0 Const General: cooperative, comfortable, no acute distress, alert, awake and Physically active Nutritional Appearance: obese Orientation/consciousness: patient oriented x3 Limitations: no limitations HEENT Head: Yes normocephalic and Yes atraumatic Neck Neck: Yes trachea midline, Yes supple and Yes no JVD Resp Effort & Inspection: normal respiratory effort Auscultation: clear to auscultation bilaterally Cardio Jugular venous distension: no JVD Palpation: normal PMI Rate: regular rate Rhythm: regular rhythm Heart sounds: S1 normal heart sound present, S2 normal heart sound present, no click, no gallops, no murmurs and no rubs GI Inspection: Yes obesity Auscultation: normal bowel sounds Skin General skin exam: no rashes or lesions noted Neuro General: patient oriented x3 and no focal motor deficits Speech: No Abnormal speech present Extrem General: Yes no clubbing, cyanosis or edema Psych Appearance: grossly normal Office Procedures EKG Details: EKG shows normal sinus rhythm with sinus arrhythmia with normal EKG [id number], Complete Assessment & Plan Assessment & Plan (1) SOB (shortness of breath) on exertion: Code(s): R06.02 - Shortness of breath Category: Medical Plan: New onset exertional shortness of breath with significantly limiting lifestyle and with increase activity getting chest tightness. He has multiple risk factors for obstructive coronary artery disease and myocardial ischemia is highly likely. Discussed with him as further workup. We discussed about physiologic assessment with a stress test versus anatomic assessment. Given his prior good functional status, I would suggest to pursue physiologic stress testing to evaluate for level of symptoms as well as extent of ischemia if present. Further treatment based on the finding of the stress test and would resume to pursue invasive evaluation if stress test is highly abnormal. This was discussed with him. Will also obtain echocardiogram to rule out any cardiomyopathy process given this symptoms started after a prolonged viral illness. This was discussed with him. He has no clinical signs of congestive heart failure at this point time. Blood pressure is currently well optimized advised to continue current therapy. Advised to continue low-dose aspirin therapy and statin therapy. Target goal LDL less than 70 mg/dL. Further treatment based on the finding of this test results. Will follow up in the clinic as soon as possible after testing is completed. Thank you for allowing me to partake in his care Orders: Orders CA stress test Today R06.02 - Shortness of breath NM cardiolite stress test 2 Weeks R06.02 - Shortness of breath, R07.9 - Chest pain, unspecified CA echo transthoracic complete Today R06.02 - Shortness of breath Coding Level of Care Code New Pt Level 4 (72801) Diagnoses SOB (shortness of breath) on exertion R06.02 CPT Codes EKG - CPT: 52671-[id number], Complete ([id number])
[2024-03-25 12:54] VITALS: BP 130/82; PULSE 77
== END 2024-03-25 14:08 | disposition home or self-care (01) ==
PROVIDERS: PCP Internal Medicine; Visit Provider Internal Medicine Cardiovascular Disease
DX: R06.02 Shortness of breath (principal)
CPT/HCPCS: 93010; 99204

== ENCOUNTER → 2024-03-25 12:48 | Outpatient (BNVA) | payer OTHER, SELFPAY | PROVIDERS: PCP Internal Medicine; Visit Provider Internal Medicine Cardiovascular Disease | DX: R06.02 Shortness of breath (principal); R07.9 Chest pain, unspecified; I10 Essential (primary) hypertension; E78.5 Hyperlipidemia, unspecified | CPT/HCPCS: 93005; 99202 ==

== ENCOUNTER → 2024-03-26 07:38 | Outpatient (REF) | payer OTHER, SELFPAY ==
--- NOTE | ~2024-03-26 | NM_ITS ---
Exercise Myocardial perfusion study Indication: Chest pain to evaluate for myocardial ischemia Technique: The patient was brought in for an exercise perfusion study on 03/26/2024. Patient performed exercise as per Samm protocol and was injected 30 mCi of sestamibi was given intravenously one target HR was achieved. Images were obtained using the SPECT gamma camera interlaced with the gating device. Images were obtained in supine position. Resting perfusion study was performed on 03/31/2024. Patient was administered 30 mCi of sestamibi intravenously at rest. Images were then obtained in supine position. Images obtained with and without CT attenuation. Total DLP 150 mGy-cm. Images were processed with the software and compared side to side in short axis, horizontal long axis and vertical long axis views. Findings: The stress perfusion study showed non attenuated images show mildly reduced uptake in the inferior as well as inferolateral wall of the LV myocardium. Remainder of the LV myocardium is normally perfused. Attenuation corrected images show normal uptake of radiotracer in all segments of LV myocardium. The gated study shows normal LV systolic function with calculated LVEF of 64%. LV cavity is normal in size. The gated study shows normal systolic wall thickening and contraction of all segments. There is no transient ischemic dilation. Resting study shows no change in perfusion pattern compared to stress perfusion study. Gating at rest reveals normal systolic wall motion with ejection fraction at greater than 60%. The findings are consistent with no reversible defect suggestive of ischemia. Normal myocardial perfusion. NM/NM cardiolite stress test Impression: 1. Normal myocardial perfusion 2. Gated LVEF is 64% 3. Transient ischemic dilatation not present Stress EKG is positive for ischemia
--- NOTE | 2024-03-26 07:45 | CA_ITS ---
Transthoracic Echocardiogram Patient (Last, First, Middle): Zach Berger R F Gender: Male Date of : 1945 Age: 78 Procedure Date: 03/26/2024 Procedure Type: Transthoracic Echocardiogram Location: OP Height: 170.18 cm Weight: 87.54 kg BSA: 1.99 m2 Heart Rate: 79 bpm BP: 132 / 78 mmHg Back Facer: DHEERAJ Referring MD: Kev Espitia MD Symptoms: R06.02 - Shortness of breath Study Quality: Adequate w contrast ECG Rhythm: Sinus Conclusions: - The left ventricular systolic function is normal. The visually estimated ejection fraction is between 55-60%. - No obvious valvular pathology seen on this study. Findings Procedure Information Contrast agent, definity, is being given per protocol without apparent complications. Left Ventricle Normal left ventricular cavity size. The left ventricular systolic function is normal. The visually estimated ejection fraction is between 55-60%. There is no evidence of regional wall motion abnormalities. Evidence suggests grade I (mild) diastolic dysfunction. There is mild septal asymmetric hypertrophy. Right Ventricle Mildly increased right ventricular cavity size. There is normal right ventricular systolic function. Atria Both atria are normal in size. Aortic Valve There is a normal trileaflet aortic valve. There is mild calcification of the aortic valve. There is no aortic valve stenosis. Mitral Valve The mitral valve appears normal. There is no mitral valve regurgitation. There is no mitral valve stenosis. Pulmonic Valve The pulmonic valve is likely normal. Tricuspid Valve Normal tricuspid valve structure. There is no tricuspid valve regurgitation. Tricuspid regurgitation envelope is inadequate for calculation of right ventricular systolic pressure. Great Vessels The asc aorta and aortic arch are normal in size. Venous The inferior vena cava is normal in size and collapses greater than 50% with inspiration. Pericardium/Pleural There is no evidence of pericardial effusion. Prior Study Comparison No prior study available for comparison. Recommendations, Care & Conclusions No obvious valvular pathology seen on this study. Measurements 2D Linear Measurements IVSd: 0.85 0.6-0.9/0.6-1.0 cm LVIDd: 5.57 3.9-5.3/4.2-5.9 cm LVIDd Index: 2.80 2.4-3.2/2.2-3.1 cm/m2 LVIDs: 4.04 2.0-3.6 cm LVPWd: 0.61 0.7-1.1 cm LA Diam: 3.70 2.7-3.8/3.0-4.0 cm LAIDs Index: 1.86 1.5-2.3 cm/m2 LV Mass: 180.83 67-162/88-224 g LV Mass Index: 90.87 43-95/49-115 g/m2 LVOT Diam: 2.10 3.0+(-)1.3 cm 2D Systolic Function EF 4C: 66.40 >55% EF 2C: 64.10 >55% EF BiP: 64.90 >55% Mitral Valve MV Pk E: 0.77 MV PK A: 0.87 MV Decel Time: 139.00 E/A: 0.90 E'Lateral: 4.03 E'Medial: 5.98 E/E' Med: 12.80 E/E' Lat: 19.00 PHT: 41.00 MVA PHT: 5.37 Decel [place]: 5.52 Aortic Valve AoV Pk Kane: 1.10 AoV Pk Grad: 5.00 BETSY: 2.86 LVOT LVOT Pk Kane: 0.98 LVOT Mn Kane: 0.65 LVOT VTI: 0.21 LVOT Pk Grad: 4.00 LVOT Mn Grad: 2.00 LVOT Diam: 2.10 LVOT Area: 3.46 Diastolic Function MV Pk E: 0.77 MV Pk A: 0.87 E/A: 0.90 E'Medial: 5.98 E/E' Med: 12.80 E' Laterial: 4.03 E/E' Lat: 19.00 Right Ventricle TAPSE (mm): 19.40 TVS' Kane: 11.00 Tricuspid Valve RA Press: 3.00 Great Vessels Aorta Sinus of Valsalva: 3.70 2.0-3.5 cm Ao Asc: 2.80 2.1-3.4 cm Ao Arch: 3.00 Pulmonary Valve PV Pk Kane: 0.80 Peak PV Grad: 3.00 Updated in Other Vendor System with Status of Final Juan Fletcher MD electronically signed on 03/28/2024 1:29:26 PM with status of Final
--- NOTE | 2024-03-26 07:45 | CA_ITS ---
Acquisition Time: 2024-03-26 09:57:32 Total Exercise Time: 00:05:00 Test Indications: CHEST PAIN, SOB Medications: Protocol: ESTHER Max HR: 137 BPM 96% of Pred: 142 BPM Max BP: 214/062 mmHG Max Work Load: 4.6 METS Exercise stress test exercise 5 min of Esther protocol stage 1 achieving 96% MPHR, with moderate SOB, no chest disocmfort, with isoaled PVCs and ventricular cuplet (aysmptomatic), with resting HTN, and max BP 214/62, with brisk HR response, without EKG changes. Breathing and blood pressure returned to baseline. Nuclear images pending. Test reviewed with Dr. Fletcher. Referred By: Kev Espitia Overread By: Kasey Vang
== END ==
LOC: HO.CARD 07:38
PROVIDERS: PCP Internal Medicine; Visit Provider Internal Medicine Cardiovascular Disease
DX: R07.9 Chest pain, unspecified (principal); R06.02 Shortness of breath
CPT/HCPCS: 78452; 93017; 93306; A9500; Q9957

== ENCOUNTER → 2024-03-26 07:45 | Outpatient (BNV) | payer OTHER, SELFPAY | PROVIDERS: PCP Internal Medicine; Visit Provider Nurse Practitioner | DX: R07.9 Chest pain, unspecified (principal) | CPT/HCPCS: 78452; 93016; 93018; 93350; 93352 ==

== ENCOUNTER 2024-04-02 09:04 | Outpatient (REF) | payer OTHER, SELFPAY ==
[2024-04-02 11:48] LABS: Prostate Specific Antigen 3.68 ng/mL (<0.05-4.0)
== END 2024-04-02 09:05 | disposition home or self-care (01) ==
LOC: HO.WFDLDS 09:04
PROVIDERS: Visit Provider Nurse Practitioner Family
DX: N40.0 Benign prostatic hyperplasia without lower urinary tract symptoms (principal); R35.1 Nocturia; R97.20 Elevated prostate specific antigen [PSA]; Z12.5 Encounter for screening for malignant neoplasm of prostate
CPT/HCPCS: 36415; 84153

== ENCOUNTER 2024-04-29 10:41 | Outpatient (REF) | payer OTHER, SELFPAY ==
[2024-04-29 13:11] LABS: MANUAL DIFF FLAG NO
[2024-04-29 13:16] LABS: Basophils Absolute Auto 0.1 X10*3/uL (0.0-0.2); Basophils Percent Auto 1.2 % (0-2); Eosinophils Absolute Auto 0.3 X10*3/uL (0.0-0.4); Hematocrit 38.6 % (42.0-52.0); Hemoglobin 11.8 g/dl (14.0-18.0); Imm Gran Abs Auto 0.02 X10*3/uL (0.00-0.03); Imm Gran Pct Auto 0.2 % (0.0-0.4); Lymphocytes Absolute Auto 1.8 X10*3/uL (1.2-4.9); Lymphocytes Percent Auto 22.2 % (20-40); Mean Corpuscular HGB Conc 30.6 g/dl (31.0-36.0); Mean Corpuscular Hemoglobin 27.6 pg (27.0-33.0); Mean Corpuscular Volume 90.2 fL (80.0-98.0); Monocytes Absolute Auto 0.8 X10*3/uL (0.1-1.2); Monocytes Percent Auto 10.1 % (2-11); Neutrophils Absolute Auto 5.2 x10*3/uL (2.0-8.3); Neutrophils Percent Auto 63.3 % (45-73); Platelet Count 408 X10*3/uL (160-400); Red Blood Count 4.28 X10*6/uL (4.60-5.80); Red Cell Distribution Width 15.2 % (11.0-16.0); White Blood Count 8.3 X10*3/uL (4.8-10.8)
[2024-04-29 13:33] LABS: Alanine Aminotransferase 39 U/L (0-40); Albumin Level 3.9 g/dL (3.5-5.0); Alkaline Phosphatase 207 U/L (39-117); Anion Gap 9 (12-20); Aspartate Amino Transferase 32 U/L (5-37); Bilirubin Total 0.5 mg/dL (0.0-1.0); Blood Urea Nitrogen 10 mg/dL (9-16); C Reactive Protein 0.17 mg/dL (< or = 0.50); Calcium 11.2 mg/dL (8.4-10.2); Carbon Dioxide 30 mmol/L (22-29); Chloride 108 mmol/L (96-108); Estimated Glomerular Filt Rate > 60; Glucose Random 163 mg/dL (60-115); Potassium 4.4 mmol/L (3.3-5.1); Sodium 143 mmol/L (135-145)
== END 2024-04-29 10:42 | disposition home or self-care (01) ==
LOC: HO.10HDL 10:41
PROVIDERS: Referring Provider Internal Medicine; Visit Provider Internal Medicine Cardiovascular Disease
DX: R79.89 Other specified abnormal findings of blood chemistry (principal); D64.9 Anemia, unspecified; I10 Essential (primary) hypertension
CPT/HCPCS: 36415; 80053; 85025; 86140

== ENCOUNTER 2024-05-12 11:39 | Outpatient (AMB) | payer OTHER, SELFPAY ==
--- NOTE | 2024-05-12 11:53 | A.OFFVIS_ITS ---
Intake Visit Reasons: 4m/PSA Intake Note: Patient presents for follow up visit elevated psa and enlarged prostate PSA: 3.68 Urology Medications: none Blood Thinner: none PVR: 15ml's Sanding Machine Buffer Required: No Accompanied by: Self / Same As Patient Allergies codeine Allergy (Verified 05/12/24 13:14) Fainting Medication List - Last Reconciled 05/12/24 by Isabel Singh VISUAL LEAD- finasteride 5 mg PO DAILY 90 days lorazepam 0.5 mg PO TID PRN losartan 50 mg PO DAILY omeprazole 40 mg PO DAILY simvastatin 20 mg PO BEDTIME tamsulosin 0.4 mg PO BEDTIME 30 days trazodone 100 mg PO BEDTIME HPI Comments Details: Zach Ford is a very pleasant 78-year-old male patient of Dr. Hernández. He has a past medical history of anxiety, allergic rhinitis, hypercholesteremia, GERD, hypertension, and overweight. He presents to the office today for follow-up of his elevated PSA. In discussion with the patient today he reports since his last office visit here approximately 4 months ago he has been having multiple health issues. He reports recently being hospitalized at [place] with transfer to [facility] for question of gallbladder issues verses liver issues. He reports being treated for sepsis and has since completed antibiotic therapy. He also reports having followed up with Cardiology here at [facility] for ongoing shortness of breath he has been experiencing and undergoing a stress test that was positive and has a follow-up with a provider at [facility] within the next month for further workup. In discussing his urological health he reports feeling Flomax makes him go more frequently however feels he has episodes of nocturia related to his insomnia. Recent PSA results reviewed with the patient today as noted and trended below... 06/23 4.7, 03/24 4.9 and% free PSA 18, 06/24 6.4, 06/24 6.0 and% free PSA 17%, 08/24 7.4 and % free PSA 18% 12/24 2.4 04/25 3.7 Previous workup has included a retroperitoneal ultrasound noting bilateral kidneys with no calculi, lesions, and or hydronephrosis noted. The bladder is well distended and normal. Pre void bladder volume is approximately 160 mL. Postvoid bladder volume is approximately 20 mL. Prostate volume is approximately 35 mL. Discussed significant decrease/drop in PSA. He reports compliance with 5 mg of finasteride as prescribed. We discussed slight increase/bump in PSA. Discussed possible increase in PSA given recent episode of sepsis. Discussed redraw of PSA. In office urinalysis results reviewed with the patient today. PVR 15 mL. He denies incontinence, hematuria, dysuria, foul smelling urine, changes to urinary stream, flank pain, fever, and or chills. He otherwise offers no other issues or concerns at this time. [facility] Medical History Hyperlipidemia HTN (hypertension) Generalized anxiety disorder Allergic rhinitis due to pollen Benign prostatic hyperplasia without lower urinary tract symptoms Persons encountering health services in other specified circumstances Pure hypercholesterolemia, unspecified Gastro-esophageal reflux disease without esophagitis Essential (primary) hypertension Acute cough Wheezing Overweight Elevated prostate specific antigen [PSA] Surgical History Hx of surgical biopsy Family History Father No problems noted. Mother CAD (coronary artery disease) Social History Patient Tobacco Use Status: Former Tobacco user Review of Systems Const Reports as per HPI Eyes Reports no additional complaints ENT Reports no additional complaints Card Reports as per HPI Resp Reports no additional complaints GI Reports as per HPI Reports as per HPI Musc Reports no additional complaints Neuro Reports no additional complaints Psych Reports no additional complaints Endo Reports no additional complaints Jorge/Lymph Reports no additional complaints Aller/Immun Reports no additional complaints Physical Exam Const General: cooperative, healthy appearing, comfortable, no acute distress, well developed, alert and awake Orientation/consciousness: patient oriented x3 Limitations: wheelchair HEENT Head: Yes normal to inspection, Yes normocephalic and Yes atraumatic Ears: hearing grossly normal bilaterally Eyes General: appearance normal, both eyes and all related structures Neck Neck: Yes normal visual inspection and Yes trachea midline Chest Chest palpation & inspection: normal inspection of the chest Resp Effort & Inspection: normal respiratory effort and able to speak in complete sentences Cardio Rate: regular rate GI Inspection: Yes normal to inspection Rectal Exam - Male: Yes visual inspection normal, Yes normal sphincter tone and Yes prostate normal General: Yes no CVA tenderness Back/Spine/Pelvis Back: no CVA tenderness Skin General skin exam: no rashes or lesions noted Neuro General: patient oriented x3 Extrem General: Yes normal to inspection Psych Appearance: grossly normal and well kempt Mental Status: mental status grossly normal Speech and movement: Normal speech and movement present and Clear speech present Affect: normal affect Attitude: cooperative Thought process: Normal thought process present Thought content: Normal thought content present Insight: Good insight present (Psych) Judgement: Good judgement present (Psych) Office Procedures Post Void Residual Post Residual Void Post Void Residual (PVR): 15 [id number] Void Residual by ultrasound Results AMB Urinalysis, Automated UA Leukoctes 0 Conchita/uL Last Edit by Silverado on 05/12/24 13:18 UA Nitrite Last Edit by Silverado on 05/12/24 13:18 UA Urobilinogen 0.2 mg/dL Last Edit by Silverado on 05/12/24 13:18 UA Protein 15 mg/dL Last Edit by Silverado on 05/12/24 13:18 UA pH 6.0 Last Edit by Silverado on 05/12/24 13:18 UA Blood 0 Stevie/uL Last Edit by Silverado on 05/12/24 13:18 UA Specific [place] 1.020 Last Edit by Silverado on 05/12/24 13:18 UA Ketone Negative Last Edit by Silverado on 05/12/24 13:18 UA Bilirubin 0 mg/dL Last Edit by Silverado on 05/12/24 13:18 UA Glucose 0 mg/dL Last Edit by Silverado on 05/12/24 13:18 Results Reviewed Results Reviewed: Laboratory Last Values Urine pH (Auto) 6.0 05/12/24 13:07 Specific [place] (Auto) 1.020 05/12/24 13:07 Urine Protein (Auto) 15 mg/dL 05/12/24 13:07 Glucose (UA)(Auto) 0 mg/dL 05/12/24 13:07 Urine Ketones (Auto) Negative 05/12/24 13:07 Urine Blood (Auto) 0 Stevie/uL 05/12/24 13:07 Urine Bilirubin (Auto) 0 mg/dL 05/12/24 13:07 Urine Urobilinogen (Auto) 0.2 mg/dL 05/12/24 13:07 Leukocyte Esterase (Auto) 0 Conchita/uL 05/12/24 13:07 Assessment & Plan Assessment & Plan (1) Enlarged prostate: Code(s): N40.0 - Benign prostatic hyperplasia without lower urinary tract symptoms Category: Medical (2) Nocturia: Code(s): R35.1 - Nocturia Category: Medical (3) Elevated prostate specific antigen [PSA]: Code(s): R97.20 - Elevated prostate specific antigen [PSA] Category: Medical (4) Urinary frequency: Code(s): R35.0 - Frequency of micturition Category: Medical Plan In office urinalysis results reviewed with the patient today; as noted above. PVR 15 mL. Recent PSA results reviewed with the patient today; as noted above. Discussed slight elevation in PSA Discussed redraw of PSA with no sex the night before, no caffeine morning of, no heavy lifting 1-2 days prior. Discussed further treatment options of nocturia and urinary frequency; patient will think about this Discussed bladder diary given patient feels urinary symptoms vary day to day. Discussed limiting fluids 2-3 hours prior to bed to decrease episodes of nocturia. Continue finasteride as discussed and prescribed. Follow-up in 1 month with PSA to be completed prior; or sooner with any issues, concerns, and or questions. Orders: Orders AMB Urinalysis Automated Today Z13.9 - Encounter for screening, unspecified AMB Post Void Residual by ultrasound Today R35.1 - Nocturia Prostate Specific Antigen Today R97.20 - Elevated prostate specific antigen [PSA] Patient Instructions: The patient had an opportunity to ask questions regarding the treatment plan. All questions were answered. Physical exam, labs, and imaging were discussed and reviewed in detail. As well as risks, benefits, and discussion of treatment choices. No major barriers to understanding were identified. The patient expressed understanding and agreement with the above treatment plan. The patient was made aware they should contact our office by phone for worsening of their current condition, the appearance of new symptoms, or with any questions or concerns. Compliance is encouraged with any medications and follow up testing that is ordered. It is a privilege to be allowed the opportunity to participate in? your urological care.? Again, if you have any questions or concerns If you have any questions or concerns please do not hesitate to contact me. The office is [phone]. This note is constructed using voice recognition software. While every effort has been made to ensure accuracy set up mechanic coating machines errors may have been included. Yours sincerely, MAURICE Rendon Coding Level of Care Code Est Pt Level 3 (48874) Complex EM visit Add On G2211 Diagnoses Enlarged prostate N40.0 Nocturia R35.1 Elevated prostate specific antigen [PSA] R97.20 Urinary frequency R35.0 CPT Codes Post Residual Void - PVR CPT Code: 65243-Mqcu Void Residual by ultrasound ([id number])
== END 2024-05-12 12:18 | disposition home or self-care (01) ==
PROVIDERS: PCP Internal Medicine; Visit Provider Nurse Practitioner Family
DX: N40.0 Benign prostatic hyperplasia without lower urinary tract symptoms (principal); R35.1 Nocturia; R97.20 Elevated prostate specific antigen [PSA]; R35.0 Frequency of micturition; Z13.9 Encounter for screening, unspecified
CPT/HCPCS: 99213

== ENCOUNTER → 2024-05-12 11:39 | Outpatient (BNVA) | payer OTHER, SELFPAY | PROVIDERS: PCP Internal Medicine; Visit Provider Nurse Practitioner Family | DX: R35.1 Nocturia (principal); R35.0 Frequency of micturition; R97.20 Elevated prostate specific antigen [PSA]; N40.0 Benign prostatic hyperplasia without lower urinary tract symptoms | CPT/HCPCS: 51798; 81003; 99212 ==

== ENCOUNTER 2024-05-18 09:17 | Outpatient (REF) | payer OTHER, SELFPAY ==
[2024-05-18 12:04] LABS: Estimated Average Glucose 120 mg/dL; Hemoglobin A1c % 5.8 % (<6.0)
[2024-05-18 12:20] LABS: Anion Gap 9 (12-20); Blood Urea Nitrogen 11 mg/dL (9-16); Calcium 10.8 mg/dL (8.4-10.2); Carbon Dioxide 27 mmol/L (22-29); Chloride 108 mmol/L (96-108); Estimated Glomerular Filt Rate > 60; Glucose Random 108 mg/dL (60-115); Iron 97 mcg/dL (45-160); Percent Iron Saturation 24 % (15-50); Potassium 3.8 mmol/L (3.3-5.1); Sodium 140 mmol/L (135-145); Total Iron Binding Capacity 408 mcg/dL (228-428); Unsaturated Iron Binding 311 ug/dL
[2024-05-18 14:57] LABS: Parathyroid Hormone Intact 100.7 pg/mL (8.7-77.1)
== END 2024-05-18 09:18 | disposition home or self-care (01) ==
LOC: HO.WFDLDS 09:17
PROVIDERS: Internal Medicine; Visit Provider Internal Medicine Cardiovascular Disease
DX: R73.03 Prediabetes (principal); E83.52 Hypercalcemia; D64.9 Anemia, unspecified
CPT/HCPCS: 36415; 80048; 83036; 83540; 83970

== ENCOUNTER 2024-06-16 08:28 | Outpatient (REF) | payer OTHER, SELFPAY ==
[2024-06-16 12:00] LABS: Anion Gap 10 (12-20); Blood Urea Nitrogen 13 mg/dL (9-16); Calcium 10.8 mg/dL (8.4-10.2); Carbon Dioxide 26 mmol/L (22-29); Chloride 110 mmol/L (96-108); Estimated Glomerular Filt Rate > 60; Glucose Random 106 mg/dL (60-115); Potassium 4.3 mmol/L (3.3-5.1); Sodium 142 mmol/L (135-145)
[2024-06-16 12:07] LABS: Prostate Specific Antigen 2.99 ng/mL (<0.05-4.0)
== END 2024-06-16 08:29 | disposition home or self-care (01) ==
LOC: HO.WFDLDS 08:28
PROVIDERS: Referring Provider Nurse Practitioner Family; Visit Provider Internal Medicine Cardiovascular Disease
DX: R94.39 Abnormal result of other cardiovascular function study (principal); R97.20 Elevated prostate specific antigen [PSA]; R06.02 Shortness of breath; I10 Essential (primary) hypertension; Z12.5 Encounter for screening for malignant neoplasm of prostate
CPT/HCPCS: 36415; 80048; 84153

== ENCOUNTER 2024-06-29 11:38 | Outpatient (AMB) | payer OTHER, SELFPAY ==
--- NOTE | 2024-06-29 11:42 | A.OFFVIS_ITS ---
Intake Visit Reasons: 1m/PSA/PVR Intake Note: Patient presents for follow up visit elevated psa and enlarged prostate PSA: 2.99 Urology Medications: finasteride Blood Thinner: none PVR: 15ml's Marketing Instructor Required: No Accompanied by: Self / Same As Patient Allergies codeine Allergy (Verified 06/29/24 12:19) Fainting Medication List - Last Reconciled 06/29/24 by JAIDEN Rendon finasteride 5 mg PO DAILY 90 days lorazepam 0.5 mg PO TID PRN losartan 50 mg PO DAILY omeprazole 40 mg PO DAILY simvastatin 20 mg PO BEDTIME trazodone 100 mg PO BEDTIME HPI Comments Details: Zach Ford is a very pleasant 79-year-old male patient of Dr. Hernández. He has a past medical history of anxiety, allergic rhinitis, hypercholesteremia, GERD, hypertension, and overweight. He presents to the office today for follow-up of his elevated PSA. Of note, patient was seen approximately 1 month ago at which time redraw of PSA was ordered for further assessment evaluation as patient had an increase in PSA despite compliance with finasteride 5 mg daily. Recent PSA results reviewed with the patient today as noted and trended below. We discussed decrease in PSA when compared to previous PSA however has slightly increased when compared to prior PSAs. He discusses since his last office visit here he has since had cardiology workup due to ongoing shortness of breath he has been experiencing. He reports his workup was within normal limits. He does report noting nocturia up to 3 times per night however does not find this bothersome. Had previously trialed Flomax in the past however felt this made nocturia worse. We discussed further treatment options however patient does not feel any bothersome urinary issues or concerns at this time. When asked he reports compliance with finasteride 5 mg daily as prescribed. He discusses prior to previous PSA in April he had been hospitalized and had been treated for sepsis. PSAs: 06/23 4.7, 03/24 4.9 and% free PSA 18, 06/24 6.4, 06/24 6.0 and% free PSA 17%, 08/24 7.4 and % free PSA 18% 12/24 2.4 04/25 3.7, 06/25 3.0 Previous workup has included a retroperitoneal ultrasound noting bilateral kidneys with no calculi, lesions, and or hydronephrosis noted. The bladder is well distended and normal. Pre void bladder volume is approximately 160 mL. Postvoid bladder volume is approximately 20 mL. Prostate volume is approximately 35 mL. Discussed possible increase in PSA given recent episode of sepsis. Discussed continuation of surveillance monitoring of PSA and importance in doing so. In office urinalysis results reviewed with the patient today. PVR 15 mL. He denies incontinence, hematuria, dysuria, foul smelling urine, changes to urinary stream, flank pain, fever, and or chills. He otherwise offers no other i ssues or concerns at this time. [facility] Medical History Hyperlipidemia HTN (hypertension) Generalized anxiety disorder Allergic rhinitis due to pollen Benign prostatic hyperplasia without lower urinary tract symptoms Persons encountering health services in other specified circumstances Pure hypercholesterolemia, unspecified Gastro-esophageal reflux disease without esophagitis Essential (primary) hypertension Acute cough Wheezing Overweight Elevated prostate specific antigen [PSA] Surgical History Hx of surgical biopsy Family History Father No problems noted. Mother CAD (coronary artery disease) Social History Patient Tobacco Use Status: Former Tobacco user Review of Systems Const Reports as per HPI Eyes Reports no additional complaints ENT Reports no additional complaints Card Reports as per HPI Resp Reports no additional complaints GI Reports as per HPI Reports as per HPI Musc Reports no additional complaints Neuro Reports no additional complaints Psych Reports no additional complaints Endo Reports no additional complaints Jorge/Lymph Reports no additional complaints Aller/Immun Reports no additional complaints Physical Exam Const General: cooperative, healthy appearing, comfortable, no acute distress, well developed, alert and awake Orientation/consciousness: patient oriented x3 Limitations: wheelchair HEENT Head: Yes normal to inspection, Yes normocephalic and Yes atraumatic Ears: hearing grossly normal bilaterally Eyes General: appearance normal, both eyes and all related structures Neck Neck: Yes normal visual inspection and Yes trachea midline Chest Chest palpation & inspection: normal inspection of the chest Resp Effort & Inspection: normal respiratory effort and able to speak in complete sentences Cardio Rate: regular rate GI Inspection: Yes normal to inspection Rectal Exam - Male: Yes visual inspection normal, Yes normal sphincter tone and Yes prostate normal General: Yes no CVA tenderness Back/Spine/Pelvis Back: no CVA tenderness Skin General skin exam: no rashes or lesions noted Neuro General: patient oriented x3 Extrem General: Yes normal to inspection Psych Appearance: grossly normal and well kempt Mental Status: mental status grossly normal Speech and movement: Normal speech and movement present and Clear speech present Affect: normal affect Attitude: cooperative Thought process: Normal thought process present Thought content: Normal thought content present Insight: Good insight present (Psych) Judgement: Good judgement present (Psych) Office Procedures Post Void Residual Post Residual Void Post Void Residual (PVR): 15 [id number] Void Residual by ultrasound Results AMB Urinalysis, Automated UA Leukoctes 0 Conchita/uL Last Edit by [employer] on 06/29/24 12:18 UA Nitrite Last Edit by [employer] on 06/29/24 12:18 UA Urobilinogen 0.2 mg/dL Last Edit by [employer] on 06/29/24 12:18 UA Protein 30 mg/dL Last Edit by [employer] on 06/29/24 12:18 UA pH 6.5 Last Edit by [employer] on 06/29/24 12:18 UA Blood 0 Stevie/uL Last Edit by [employer] on 06/29/24 12:18 UA Specific [place] 1.015 Last Edit by [employer] on 06/29/24 12:18 UA Ketone Last Edit by [employer] on 06/29/24 12:18 UA Bilirubin 0 mg/dL Last Edit by [employer] on 06/29/24 12:18 UA Glucose 0 mg/dL Last Edit by [employer] on 06/29/24 12:18 Results Reviewed Results Reviewed: Laboratory Last Values Urine pH (Auto) 6.5 06/29/24 12:16 Specific [place] (Auto) 1.015 06/29/24 12:16 Urine Protein (Auto) 30 mg/dL 06/29/24 12:16 Glucose (UA)(Auto) 0 mg/dL 06/29/24 12:16 Urine Blood (Auto) 0 Stevie/uL 06/29/24 12:16 Urine Bilirubin (Auto) 0 mg/dL 06/29/24 12:16 Urine Urobilinogen (Auto) 0.2 mg/dL 06/29/24 12:16 Leukocyte Esterase (Auto) 0 Conchita/uL 06/29/24 12:16 Assessment & Plan Assessment & Plan (1) Enlarged prostate: Code(s): N40.0 - Benign prostatic hyperplasia without lower urinary tract symptoms Category: Medical (2) Nocturia: Code(s): R35.1 - Nocturia Category: Medical (3) Elevated prostate specific antigen [PSA]: Code(s): R97.20 - Elevated prostate specific antigen [PSA] Category: Medical Plan In office urinalysis results with the patient today; as noted above. PVR 15 mL. Recent PSA results reviewed with the patient today; as noted above. Patient currently denies any bothersome urinary issues or concerns. He reports be happy with current voiding parameters. Continue finasteride as discussed and prescribed. Discussed at length potential causes of increase in PSA. Will obtain PSA in 4 months Follow-up in 4 months with PSA and PVR; or sooner with any issues, concerns, and or questions. Orders: Orders Prostate Specific Antigen 4 Months N40.0 - Benign prostatic hyperplasia without lower urinary tract symptoms, R97.20 - Elevated prostate specific antigen [PSA] AMB Urinalysis Automated Today Z13.9 - Encounter for screening, unspecified AMB Post Void Residual by ultrasound Today R35.0 - Frequency of micturition Patient Instructions: The patient had an opportunity to ask questions regarding the treatment plan. All questions were answered. Physical exam, labs, and imaging were discussed and reviewed in detail. As well as risks, benefits, and discussion of treatment choices. No major barriers to understanding were identified. The patient expressed understanding and agreement with the above treatment plan. The patient was made aware they should contact our office by phone for worsening of their current condition, the appearance of new symptoms, or with any questions or concerns. Compliance is encouraged with any medications and follow up testing that is ordered. It is a privilege to be allowed the opportunity to participate in? your urological care.? Again, if you have any questions or concerns If you have any questions or concerns please do not hesitate to contact me. The office is [phone]. This note is constructed using voice recognition software. While every effort has been made to ensure accuracy corporate events director errors may have been included. Yours sincerely, MAURICE Rendon Coding Level of Care Code Est Pt Level 3 (98348) Complex EM visit Add On G2211 Diagnoses Enlarged prostate N40.0 Nocturia R35.1 Elevated prostate specific antigen [PSA] R97.20 CPT Codes Post Residual Void - PVR CPT Code: [id number] Void Residual by ultrasound ([id number])
== END 2024-06-29 12:10 | disposition home or self-care (01) ==
LOC: HO.HUSH 11:39
PROVIDERS: PCP Internal Medicine; Visit Provider Nurse Practitioner Family
DX: N40.0 Benign prostatic hyperplasia without lower urinary tract symptoms (principal); R35.1 Nocturia; R97.20 Elevated prostate specific antigen [PSA]; Z13.9 Encounter for screening, unspecified
CPT/HCPCS: 99213

== ENCOUNTER → 2024-06-29 11:38 | Outpatient (BNVA) | payer OTHER, SELFPAY | PROVIDERS: PCP Internal Medicine; Visit Provider Nurse Practitioner Family | DX: N40.1 Benign prostatic hyperplasia with lower urinary tract symptoms (principal); R97.20 Elevated prostate specific antigen [PSA]; R35.0 Frequency of micturition; R35.1 Nocturia | CPT/HCPCS: 51798; 81003; 99212 ==

== ENCOUNTER 2024-07-17 09:33 | Outpatient (REF) | payer OTHER, SELFPAY ==
[2024-07-17 11:02] LABS: MANUAL DIFF FLAG NO
[2024-07-17 11:22] LABS: Basophils Absolute Auto 0.1 X10*3/uL (0.0-0.2); Basophils Percent Auto 1.3 % (0-2); Eosinophils Absolute Auto 0.2 X10*3/uL (0.0-0.4); Eosinophils Percent Auto 2.6 % (0-4); Hematocrit 34.8 % (42.0-52.0); Hemoglobin 10.7 g/dl (14.0-18.0); Imm Gran Abs Auto 0.03 X10*3/uL (0.00-0.03); Imm Gran Pct Auto 0.4 % (0.0-0.4); Lymphocytes Absolute Auto 2.2 X10*3/uL (1.2-4.9); Lymphocytes Percent Auto 32.5 % (20-40); Mean Corpuscular HGB Conc 30.7 g/dl (31.0-36.0); Mean Corpuscular Hemoglobin 26.4 pg (27.0-33.0); Mean Corpuscular Volume 85.9 fL (80.0-98.0); Mean Platelet Volume 9.9 fL (9.4-12.4); Monocytes Absolute Auto 0.8 X10*3/uL (0.1-1.2); Neutrophils Absolute Auto 3.5 x10*3/uL (2.0-8.3); Neutrophils Percent Auto 51.2 % (45-73); Platelet Count 427 X10*3/uL (160-400); Red Blood Count 4.05 X10*6/uL (4.60-5.80); Red Cell Distribution Width 14.6 % (11.0-16.0); White Blood Count 6.8 X10*3/uL (4.8-10.8)
[2024-07-17 11:47] LABS: Prostate Specific Antigen Scr 3.18 ng/mL (<0.05-4.0)
[2024-07-17 12:29] LABS: Alanine Aminotransferase 60 U/L (0-40); Albumin Level 4.2 g/dL (3.5-5.0); Alkaline Phosphatase 95 U/L (39-117); Anion Gap 8 (12-20); Aspartate Amino Transferase 45 U/L (5-37); Bilirubin Total 0.5 mg/dL (0.0-1.0); Blood Urea Nitrogen 16 mg/dL (9-16); Carbon Dioxide 27 mmol/L (22-29); Chloride 103 mmol/L (96-108); Cholesterol 154 mg/dL (<200); Estimated Glomerular Filt Rate > 60; Glucose Fasting 98 mg/dL (60-99); HDL Cholesterol 63 mg/dL (>40); Iron 61 mcg/dL (45-160); LDL Cholesterol Calculated 58 mg/dL (<100); Percent Iron Saturation 14 % (15-50); Potassium 4.2 mmol/L (3.3-5.1); Sodium 134 mmol/L (135-145); Total Iron Binding Capacity 421 mcg/dL (228-428); Triglycerides 165 mg/dL (<150); Unsaturated Iron Binding 360 ug/dL
[2024-07-17 17:56] LABS: Appearance Urine Clear; Color Urine Yellow; Glucose Urine UA Negative (Negative); Leukocyte Esterase Urine Trace (Negative); Nitrite Urine Negative (Negative); PH 5.5 (5.0-9.0); UMIC TRIGGER UA YES; Urine Blood Negative (Negative); Urine Ketones Negative (Negative); Urine Protein 30 (1+) mg/dL (Neg-Trace)
[2024-07-17 18:02] LABS: Bacteria Urine None Seen (None Seen); Hyaline Casts Urine 0-2 /LPF (0-2); RBC Urine 0-2 /HPF (0-2); Squamous Epithelial Cell Urine 0-2 /HPF (0-2); WBC Urine 0-5 /HPF (0-5)
== END 2024-07-17 09:34 | disposition home or self-care (01) ==
LOC: HO.WFDLDS 09:33
PROVIDERS: Visit Provider Internal Medicine
DX: I10 Essential (primary) hypertension (principal); Z12.5 Encounter for screening for malignant neoplasm of prostate; E78.00 Pure hypercholesterolemia, unspecified; D64.9 Anemia, unspecified; N40.0 Benign prostatic hyperplasia without lower urinary tract symptoms
CPT/HCPCS: 36415; 80053; 80061; 81001; 83540; 84153; 85025

== ENCOUNTER 2024-08-03 12:54 | Outpatient (REF) | payer OTHER, SELFPAY ==
[2024-08-03 14:17] LABS: MANUAL DIFF FLAG NO
[2024-08-03 14:37] LABS: Basophils Absolute Auto 0.2 X10*3/uL (0.0-0.2); Basophils Percent Auto 2.1 % (0-2); Eosinophils Absolute Auto 0.3 X10*3/uL (0.0-0.4); Eosinophils Percent Auto 3.7 % (0-4); Hematocrit 34.7 % (42.0-52.0); Hemoglobin 10.6 g/dl (14.0-18.0); Imm Gran Abs Auto 0.03 X10*3/uL (0.00-0.03); Imm Gran Pct Auto 0.4 % (0.0-0.4); Lymphocytes Absolute Auto 1.7 X10*3/uL (1.2-4.9); Lymphocytes Percent Auto 23.7 % (20-40); Mean Corpuscular HGB Conc 30.5 g/dl (31.0-36.0); Mean Corpuscular Hemoglobin 26.9 pg (27.0-33.0); Mean Corpuscular Volume 88.1 fL (80.0-98.0); Mean Platelet Volume 9.7 fL (9.4-12.4); Monocytes Absolute Auto 0.8 X10*3/uL (0.1-1.2); Monocytes Percent Auto 10.8 % (2-11); Neutrophils Absolute Auto 4.3 x10*3/uL (2.0-8.3); Neutrophils Percent Auto 59.3 % (45-73); Platelet Count 847 X10*3/uL (160-400); Red Blood Count 3.94 X10*6/uL (4.60-5.80); Red Cell Distribution Width 15.8 % (11.0-16.0); White Blood Count 7.3 X10*3/uL (4.8-10.8)
[2024-08-03 15:16] LABS: Alanine Aminotransferase 42 U/L (0-40); Albumin Level 4.1 g/dL (3.5-5.0); Alkaline Phosphatase 167 U/L (39-117); Anion Gap 13 (12-20); Aspartate Amino Transferase 40 U/L (5-37); Bilirubin Total 0.5 mg/dL (0.0-1.0); Blood Urea Nitrogen 12 mg/dL (9-16); Calcium 11.4 mg/dL (8.4-10.2); Carbon Dioxide 27 mmol/L (22-29); Chloride 105 mmol/L (96-108); Estimated Glomerular Filt Rate > 60; Glucose Random 128 mg/dL (60-115); Sodium 141 mmol/L (135-145); Total Protein 7.2 g/dL (6.5-8.0)
== END 2024-08-03 12:55 | disposition home or self-care (01) ==
LOC: HO.WFDLDS 12:54
PROVIDERS: Visit Provider Internal Medicine
DX: Z98.890 Other specified postprocedural states (principal)
CPT/HCPCS: 36415; 80053; 85025

== ENCOUNTER 2024-09-08 10:17 | Outpatient (REF) | payer OTHER, SELFPAY ==
[2024-09-08 10:37] LABS: MANUAL DIFF FLAG NO
[2024-09-08 11:56] LABS: Basophils Absolute Auto 0.1 X10*3/uL (0.0-0.2); Eosinophils Absolute Auto 0.2 X10*3/uL (0.0-0.4); Eosinophils Percent Auto 3.1 % (0-4); Hematocrit 42.7 % (42.0-52.0); Hemoglobin 13.5 g/dl (14.0-18.0); Imm Gran Abs Auto 0.02 X10*3/uL (0.00-0.03); Imm Gran Pct Auto 0.3 % (0.0-0.4); Lymphocytes Percent Auto 29.7 % (20-40); Mean Corpuscular HGB Conc 31.6 g/dl (31.0-36.0); Mean Corpuscular Hemoglobin 28.2 pg (27.0-33.0); Mean Corpuscular Volume 89.1 fL (80.0-98.0); Mean Platelet Volume 9.6 fL (9.4-12.4); Monocytes Absolute Auto 0.7 X10*3/uL (0.1-1.2); Monocytes Percent Auto 9.9 % (2-11); Neutrophils Absolute Auto 3.8 x10*3/uL (2.0-8.3); Platelet Count 392 X10*3/uL (160-400); Red Blood Count 4.79 X10*6/uL (4.60-5.80); Red Cell Distribution Width 18.2 % (11.0-16.0); White Blood Count 6.8 X10*3/uL (4.8-10.8)
[2024-09-08 12:37] LABS: Lithium < 0.10 mmol/L (0.60-1.20)
== END 2024-09-08 10:18 | disposition home or self-care (01) ==
LOC: HO.LAB 10:17
PROVIDERS: PCP Internal Medicine; Visit Provider Internal Medicine
DX: N40.0 Benign prostatic hyperplasia without lower urinary tract symptoms (principal); I10 Essential (primary) hypertension; E78.00 Pure hypercholesterolemia, unspecified; D64.9 Anemia, unspecified
CPT/HCPCS: 36415; 80178; 85025

== ENCOUNTER 2024-10-13 08:53 | Outpatient (REF) | payer OTHER, SELFPAY ==
--- OUTSIDE RECORDS SUMMARY | 2024-10-13 09:32 | XMS_ITS ---
Author Name [facility] [place] [facility] [place] [facility] [place] Address [address] [place] [id number] Support Name Relationship Address Phone LUIS CARLOS KELLY Next of Kin [address] [place] [phone] LUIS CARLOS KELLY Emergency Contact [address] [place] [address] Insurance Providers: All [...] PRESCRIPT ION RX Apr 21, 2023 THPRX [id number] [phone] [place] LLIAM PATIENT [facility] PLAN [facility] [place] Sep 02, 2017 [facility] [phone] [place] L[place] PATIENT [facility] BEKAH EMERY LEUNG E Sep 02, 2017 [facility] [phone] [place] PATIENT Selected Encounter This section includes the information on record at [place] for the Encounter. Date/Time Encounter Type Encounter [...] of spectacles and contact lenses HARDY MORGAN [facility] Encounter Notes: All associated encounter notes This [...] to stick with Bifocals. /maxim/ HARDY BENAVIDES [facility] TECHINICIAN Signed: 07/03/2024 11:52 HARDY MORGAN [facility]
--- OUTSIDE RECORDS SUMMARY | 2024-10-13 09:32 | XMS_ITS | Continuity of Care Document ---
Author Name [employer] Organization [facility] Care Team Providers Care Personal Companion Name Role Phone [facility] Unavailable Unavailable Problems Combined list of problems from Department of Defense and Veterans Affairs facilities. It does not include entries that were removed or entered in error. 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, bilateral Active Diagnosis [facility] Diagnosis: ICD-10-CM Z46.0 Encounter for fit/adjst of spectacles and contact lenses Active Diagnosis [facility] Diagnosis: ICD-10-CM H04.123 Dry eye syndrome of bilateral lacrimal glands Active Diagnosis [facility] Diagnosis: ICD-10-CM Z46.1 Encounter for fitting and adjustment of hearing aid Active Diagnosis [facility] Diagnosis: ICD-10-CM Z02.89 Encounter for other administrative examinations Active Diagnosis [facility] Diagnosis: ICD-10-CM H90.A32 Mix cndct/snrl hear loss,uni,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 Medication Details Route Status Patient Instructions Prescription Expires Prescription Number Last Dispense Date Ordering Provider Order Date Order Qty Source CARBOXYMETH YLCELLULOSE NA 0.5% SOLN,OPH INSTILL 1 DROP INTO EACH EYE FOUR TIMES A DAY FOR DRY EYE OPHTHA LMIC ACTIVE 05/21/2025 [id number] FAM,LAC EY J 2023 45 [facility] [place] [facility] Allergies, Adverse Reactions, Alerts Combined list of allergies from Department of Defense and Veterans Affairs facilities. It does not include entries that were removed or entered in error. Substance Category Reaction Severity Reaction type Status Date Reported Comments Source CODEINE Propensity to adverse reactions to drug (finding) Syncope active 4 [facility] [place] [facility] Encounters Combined list of: 1) Encounters from Department of Veterans Affairs facilities going backup to the last 18 months, not all [place] inpatient encounters are included; 2) Encounters from the Department of [facility] facilities going backup to 280 months. Location Location Details Encounter Type Encounter Number Reason For Visit Attending Provider ADM Date DC Date Status [facility] EYE EXAM NEW PATIENT [id number] Diagnos is: ICD-10- CM H25.813 Combine d forms of age-rel ated catarac t, bilyinka al KARRI FAM J 05[facility] [place] [facility] Outpatient [facility]counter [id number] 05/14 [place] [facility] [place] [facility] [place] [id number] Diagnos is: ICD-10- CM H90.A32 Mix cndct/s nrl hear loss,un i,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 LUCILLE BHARDWAJ L 05[facility]15 [facility] [place] Outpatient Encounter [id number] Diagnos is: ICD-10- CM Z46.0 Encount er for fit/adj st of spectac les and contact lenses ZANA SANTIAGO 05/15 [facility] HEARING AID EXAM BOTH EARS [id number] Diagnos is: ICD-10- CM H90.A32 Mix cndct/s nrl hear loss,un i,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 Betina STEPHENSON 06/24 [facility] [place] HEARING SERVICE [id number] Diagnos is: ICD-10- CM Z46.1 Encount er for fitting and adjustm ent of hearing aid Betina STEPHENSON 07/24 [facility] [place] Outpatient Encounter [id number] Diagnos is: ICD-10- CM Z02.89 Encount er for other adminis trative examina tions LUCILLE BHARDWAJ L 08/07 [facility] [place] HEARING AID FITTING/CH ECKING [id number] Diagnos is: ICD-10- CM Z46.1 Encount er for fitting and adjustm ent of hearing aid LUCILLE BHARDWAJ L 08/07 [facility] [place] COMPRE OPH EXAM EST PT [id number] Diagnos is: ICD-10- CM H04.123 Dry eye syndrom e of bilater al lacrima l glands FAM,LACE Y J 05/20 [facility] FIT SPECTACLES MULTIFOCAL .63 [id number] Diagnos is: ICD-10- CM Z46.0 Encount er for fit/adj st of spectac les and contact lenses FAM,LACE Y J 05/20 [facility] [place] [facility] RPR&REFITG SPECT XCP APHAKIA [id number] Diagnos is: ICD-10- CM Z46.0 Encount er for fit/adj st of spectac les and contact lenses CONNER MORGAN 07/03 [facility] [employer] [place] [id number] Diagnos is: ICD-10- CM H52.223 Regular astigma herminia catherine al ISAIAH LAY 07/03 [facility] FIT SPECTACLES BIFOCAL [id number] Diagnos is: ICD-10- CM Z46.0 Encount er for fit/adj st of spectac les and contact lenses ISAIAH LAY 07/03 [place] [facility] [place] [facility] Social History Combined list of available smoking, tobacco, and other social history from Department of Defense and Veterans Affairs facilities. Social History Type Response Date Comment Sour e This section is an empty social history section. [employer]
--- OUTSIDE RECORDS SUMMARY | 2024-10-13 09:32 | XMS_ITS ---
Author Name [facility] [place] Organization [facility] [place] Address [address] [place] [id number] Support Name Relationship Address Phone LUIS CARLOS KELLY Next of Kin [address] [place] [address] LUIS CARLOS KELLY Emergency Contact [address] [...] PRESCRIPT ION RX Apr 21, 2023 THPRX [id number] [phone] [place] L[place] [facility] Sep [facility], 2017 [facility] [place] [phone] [place] PATIENT [facility] BEK[facility] EMERY LEUNG E Sep 02, 2017 [facility] [place] [phone] [place] L[place]AM PATIENT Selected Encounter This section includes the information on record at [place] for the Encounter. Date/Time Encounter Type Encounter [...] syndrome of bilateral lacrimal glands [facility] May 20, 2024 02:42 PM SECONDARY Combined forms of age-related cataract, bilateral [facility] May 20, 2024 02:42 PM SECONDARY Presbyopia [facility]NNY [facility] May 20, 2024 02:42 PM SECONDARY Puckering of macula, left eye [facility]OHNNY [facility] Plan of Treatment: Future Appointments (+ 6 months) and Future Tests (+/- 45 days) The Plan of Treatment section includes future care activities for the patient from all [place] treatmentfacilities. This section includes future appointments and future orders which are active, pending or scheduled. Future Appointments This section includes appointments that were scheduled to occur 6 months from the date of the Encounter, up to a maximum of 20 appointments. The data comes from all [place] treatment facilities. Appointment Date/Time Appointment Type Appointme nt Facility Name Jul 03, 2024 11:20 AM [facility] Jul 03, 2024 12:30 PM [facility] Encounter Notes: All associated encounter notes This [...] for annual CEE KANCHAN: 05/15/23 Chief Complaint: [place] complains of blurry vision at distance with cc and constantly has tearing (worse at downgaze and up close) with occastional burning sensation OU. He does not use any eye drops. [place] also reported that he has to wear [...] Remote Allergy/ADR Data available for this patient [place] [facility] CODEINE Med. Reconciliation (Tool #1) INCLUDED IN THIS LIST: Alphabetical list of active outpatient prescriptions dispensed from this [facility] (local) and dispensed from another [place] or [facility] facility (remote) as well as inpatient orders (local pending and active), local clinic medications, locally documented non-VA medications, and local prescriptions that have or been discontinued in the past 90 days. Non-VA Meds Last Documented On: Data not found NOTE The display of VA prescriptions dispensed from another [place] or [facility] facility (remote) is limited to active outpatient prescription entries matched to National Drug File at the originating site and may not include some items such as investigational drugs, compounds, etc. NOT INCLUDED IN THIS LIST: Medications self-entered by the patient into personal health records (i.e. [employer]) are NOT included in this list. Non-VA medications documented outside this [place], remote inpatient orders (regardless of status) and remote clinic medications are NOT included in this list. The patient and provider must always discuss medications the patient is taking, regardless of where the medication was dispensed or obtained. OUTPT CARBOXYMETHYLCELLULOSE NA 0.5% OPH SOLN (Status = Active/Suspended) INSTILL 1 DROP INTO EACH EYE FOUR TIMES A DAY FOR DRY EYE Rx# [id number] Last Released: Qt/Days Supply: Rx Expiration Date: 05/21/25 Refills Remainin Indication: FOR DRY EYE SUPPLIES PHARMACY TERMS AND POSSIBLE PATIENT ACTIONS INPT = [place] inpatient order IV = [place] intravenous medication OUTPT = [place] outpatient prescription PHARMACY POSSIBLE PATIENT TERMS EXPLANATION ACTIONS -------- - ACTIVE A prescription that can be If you have refills, filled at the local [place] pharmacy. you may request a refill of this prescription from your [place] pharmacy. CLINIC A medication you received during If you have questions a visit to a [place] clinic or about this medication emergency department. contact your [place] healthcare team. DISCONTINUED A prescription your provider has Contact your [facility] stopped. It is no longer healthcare team if you available to be sent to you or need more of this picked up at the [place] pharmacy medication. window. A prescription which is [...] the VA. Or, it may be an [id number] (OTC), herbal, dietary supplements or sample medication. [...] An active prescription that is Contact your [place] not scheduled to be filled yet. pharmacy if you need You should receive it before this medication now. you run out. ==== (x) Printed Medication Reconciliation List Offered and Declined by () Medication Reconciliation List Printed for at Exam () Optometry HT Please Print and Mail Copy of Medication Reconciliation List () AMSA Please Print and Mail Copy of Medication Reconciliation List /maxim/ ROMELIA BAH OPTOMETRY STUDENT Signed: 05/20/2024 16:19 /maxim/ JOHNNY FAM OD MANAGER FILTER Cosigned: 05/20/2024 16:26 05/20/2024 ADDENDUM STATUS: COMPLETED The optometry internal communications manager participated in this exam, I saw this [place] in conjunction with the optometry student. The [...] assessment and plan. Ed re today's findings. [place] repeated back the plan and education. All reminders completed by attending and documented in student note. /maxim/ JOHNNY FAM OD MANAGER FILTER Signed: 05/20/2024 16:26 ROMELIA BAH [place] [facility]
--- OUTSIDE RECORDS SUMMARY | 2024-10-13 09:33 | XMS_ITS | Continuity of Care Document ---
Author Organization [facility] Address [address] [place] [address] [address] [place] [address]- Care Team Providers Care Topper Packer Name Role Phone Baudilio Hernández MD Primary Care Physician [phone] [place] [facility] [place] - 09/12/24 [facility] [address] [place], [place] [address] Encounter Type: Triage Allergies, Adverse Reactions, Alerts Substance Criticality Severity Reaction Reaction Severity Status codeine Syncope Active Immunizations Given and Recorded Vaccine Date Status Refusal Reason [id number] 12y+ bivalent booster vax 07/02/22 Recorded SARS-CoV-2 (COVID-19) mRNA-1273 vaccine 08/01/21 R ecorded SARS-CoV-2 (COVID-19) mRNA-1273 vaccine 01/28/21 R ecorded SARS-CoV-2 (COVID-19) mRNA-1273 vaccine 12/31/20 R ecorded influenza virus vaccine, inactivated 06/16/21 Caio rded influenza virus vaccine, inactivated 06/16/19 Caio rded influenza virus vaccine, inactivated 06/20/18 Caio rded influenza virus vaccine, inactivated 06/25/17 Caio rded influenza virus vaccine, inactivated 06/07/16 Caio rded influenza virus vaccine, inactivated 05/20/15 Caio rded influenza virus vaccine, inactivated 06/09/14 Caio rded influenza virus vaccine, inactivated 05/13/13 Caio rded influenza virus vaccine, inactivated 05/13/12 Caio rded influenza virus vaccine, inactivated 07/03/11 Caio rded pneumococcal 13-valent vaccine 03/23/19 Recorded Zoster Vaccine Live 12/08/13 Recorded tetanus-diphtheria toxoids (Td) 12/26/12 Recorded pneumococcal 23-valent vaccine 11/12/11 Recorded Medications Colace sodium 100 mg oral capsule 100 mg, 1, capsule, By Mouth, 2 times a day, # 60 capsule, Refills 0, Tot. Refills 0, Maintenance, 08/14/24 9:59:00 AM EST, [id number] Partial fill upon patient request if the prescription is for a schedule II opioid drug., 175, cm, 08/06/24 14:46:00 EST, Height, 84.5, kg, 07/18/24 1:55:00 EST, Dry Weight Start Date: 08/14/24 Stop Date: 09/13/24 Status: Ordered Quantity: 60.0 Unit: capsule Repeat number: 1 docusate sodium 100 mg oral capsule 100 mg, 1, capsule, By Mouth, 2 times a day, # 60 capsule, Refills 0, Tot. Refills 0, Maintenance, 07/22/24 7:33:00 AM EST, Route to Pharmacy Electronically, [facility], Partial fill upon patient request if the prescription is for a schedule II opioid drug., 175, cm, 07/21/24 7:29:[address], Height, 84.5, kg, 07/18/24 1:55:00 EST, Dry Weight Start Date: 07/22/24 Status: Ordered Quantity: 60.0 Unit: capsule Repeat number: 1 finasteride 5 mg oral tablet 1 tablet = 5 mg, By Mouth, Daily, # 30 tablet, 0 Refills, Maintenance, 04/02/24 8:46:00 PM EDT, Tablet, Partial fill upon patient request if the prescription is for a schedule II opioid drug. Start Date: 04/02/24 Status: Ordered Quantity: 30.0 Unit: tablet Repeat number: 1 Flomax 0.4 mg oral capsule 0.4 mg, 1, capsule, By Mouth, Daily at bedtime, # 30 capsule, Refills 0, Maintenance, 04/02/24 8:46:00 PM EDT, Partial fill upon patient request if the prescription is for a schedule II opioid drug. Start Date: 04/02/24 Status: Ordered Quantity: 30.0 Unit: capsule Repeat number: 1 losartan 50 mg oral tablet 50 mg, 1, tablet, By Mouth, Daily, # 30 tablet, Refills 0, Maintenance, 04/02/24 8:45:00 PM EDT, Partial fill upon patient request if the prescription is for a schedule II opioid drug. Start Date: 04/02/24 Status: Ordered Quantity: 30.0 Unit: tablet Repeat number: 1 MiraLax oral powder for reconstitution = 17 Gm, By Mouth, Daily, for 30 days, Take 1 capful dissolved in water or juice daily, # 510 Gm, 0Refills, Acute 09/13/24 9:55:00 AM EST, 08/14/24 9:55:00 AM EST, REC Powder, [id number], Partial fill upon patient request if the prescription is for a schedule II opioid drug., 17 Gm By MouthDaily,x30 days,Instr:Take 1 capful dissolved in water or juice daily, 175, cm, 08/06/24 14:46:00 EST, Height, 84.5, kg, 07/18/24 1:55:00 EST, Dry Weight Start Date: 08/14/24 Stop Date: 09/13/24 Status: Ordered Quantity: 510.0 Unit: g Repeat number: 1 Omeprazole = 40 mg, By Mouth, Daily, 0 Refills, Maintenance, 07/18/24 6:27:00 AM EST, Partial fill upon patient request if the prescription is for a schedule II opioid drug. Start Date: 07/18/24 Status: Ordered Repeat number: 1 simvastatin 20 mg oral tablet 20 mg, 1, tablet, By Mouth, Daily before dinner, Refills 0, Maintenance, 04/02/24 8:45:00 PM EDT, Partial fill upon patient request if the prescription is for a schedule II opioid drug. Start Date: 04/02/24 Status: Ordered Repeat number: 1 Patient Care team information Care Team Personnel Name: Felicitas Rose RN Position: [facility] RN Member Role: Primary Care Nurse Name: Baudilio Hernández MD Position: [facility] Outreach Member Role: PCP Address: [address] [place] [address] [place] [address]- Telecom: Name: Savannah Brito RN Position: [facility] ED RN W/OE and Tasks Member Role: Primary Care Nurse Name: Ronda Osorio RN Position: [facility] RN Member Role: Primary Care Nurse Name: Komal Campos RN Position: S RN Member Role: Primary Care Nurse Name: Hellen Ann RN Position: S RN Member Role: Primary Care Nurse Care Team Related Persons Name: KINGSLEY GERARD Name: KENNEDY COOPER Insurance Providers Guarantor name: GENA LETICIA [facility] Information #: 1 Payer: NA Member Number: NA Policy Number: NA Group Number: NA
--- OUTSIDE RECORDS SUMMARY | 2024-10-13 09:33 | XMS_ITS | Continuity of Care Document ---
Author Organization [facility] Address [address] [place] [address]- Care Team Providers Care Roofing Contractor Name Role Phone Baudilio Hernández MD Primary Care Physician [place] [facility] [place] 09[place]23/24 [facility] [address] [place] [address]- Attending Physician: James Harris Admitting Physician: James Harris Referring Physician: AdmtrJames Encounter Type: Triage Allergies, Adverse Reactions, Alerts Substance Criticality Severity Reaction Reaction Severity Status codeine Syncope Active Immunizations Given and Recorded Vaccine Date Status Refusal Reason [id number] 12y+ bivalent booster vax 07/02/22 Recorded SARS-CoV-2 [...] 13-valent vaccine 03/23/19 Recorded Zoster Vaccine Live 4/8/14 Recorded tetanus-diphtheria toxoids (Td) 12/26/12 Recorded pneumococcal 23-valent vaccine 11/12/11 Recorded Medications Colace sodium 100 mg oral capsule 100 mg, 1, capsule, By Mouth, 2 times a day, # 60 capsule, Refills 0, Tot. Refills 0, Maintenance, 08/14/24 9:59:00 AM EST, [id number] fill upon patient request if [...] 7:33:00 AM EST, Route to Pharmacy Electronically, [facility], Partial fill upon patient request if [...] Quantity: 30.0 Unit: tablet Repeat number: 1 Omeprazole = 40 mg, [...] Team Personnel Name: Felicitas Rose RN Position: [facility] RN Member Role: Primary Care Nurse Name: Baudilio Hernández MD Position: [facility] Outreach Member Role: PCP Address: [address] [place] [address] Baudilio Hernández MD [place], [place] [address] Telecom: Name: Savannah Brito RN Position: [facility] ED RN W/OE and Tasks Member Role: Primary Care Nurse Name: Ronda Osorio RN Position: [facility] RN Member Role: Primary Care Nurse Name: Komal Campos RN Position: [facility] RN Member Role: Primary Care Nurse Name: Hellen Ann RN Position: [facility] RN Member Role: Primary Care Nurse Care Team Related Persons Name: KINGSLEY GERARD Name: KENNEDY COOPER Insurance Providers Guarantor name: GENA LETICIA Health Plan Information #: 1 Payer: NA Member Number: NA Policy Number: NA Group Number: NA
[2024-10-13 11:46] LABS: Prostate Specific Antigen 2.54 ng/mL (<0.05-4.0)
== END 2024-10-13 08:54 | disposition home or self-care (01) ==
LOC: HO.WFDLDS 08:53
PROVIDERS: Visit Provider Nurse Practitioner Family
DX: N40.0 Benign prostatic hyperplasia without lower urinary tract symptoms (principal); R97.20 Elevated prostate specific antigen [PSA]; Z12.5 Encounter for screening for malignant neoplasm of prostate
CPT/HCPCS: 36415; 84153

== ENCOUNTER 2024-10-29 11:48 | Outpatient (AMB) | payer OTHER, SELFPAY ==
--- NOTE | 2024-10-29 11:50 | A.OFFVIS_ITS ---
Intake Visit Reasons: 4m/PSA(set) Intake Note: Patient presents for follow up visit elevated psa and enlarged prostate PSA: 2.54 Urology Medications: finasteride Blood Thinner: none PVR: 0ml's Systems Analysis Manager Required: No Accompanied by: Self / Same As Patient Allergies codeine Allergy (Verified 10/29/24 13:06) Fainting Medication List - Last Reconciled 10/29/24 by MAURICE Rendon finasteride 5 mg PO DAILY 90 days losartan 50 mg PO DAILY omeprazole 40 mg PO DAILY simvastatin 20 mg PO BEDTIME trazodone 100 mg PO BEDTIME HPI Comments Details: Zach Ford is a very pleasant 79-year-old male patient of Dr. Hernández. He has a past medical history of anxiety, allergic rhinitis, hypercholesteremia, GERD, hypertension, and overweight. He presents to the office today for follow-up of his elevated PSA. Discussion with the patient today reports to be doing and feeling well. He denies having had any bothersome urinary issues or concerns since his last office visit here. Reports compliance with finasteride 5 mg daily as prescribed. Recent PSA results reviewed with the patient today as noted and trended below. PSAs: 06/23 4.7, 03/24 4.9 and% free PSA 18, 06/24 6.4, 06/24 6.0 and% free PSA 17%, 08/24 7.4 and % free PSA 18% 12/24 2.4 04/25 3.7, 06/25 3.0, 10/27 2.5 Previous workup has included a retroperitoneal ultrasound 08/24 noting bilateral kidneys with no calculi, lesions, and or hydronephrosis noted. The bladder is well distended and normal. Pre void bladder volume is approximately 160 mL. Postvoid bladder volume is approximately 20 mL. Prostate volume is approximately 35 mL. Discussed continuation of surveillance monitoring of PSA and importance in doing so. In office urinalysis results reviewed with the patient today. PVR 0 mL. He denies incontinence, hematuria, dysuria, foul smelling urine, changes to urinary stream, flank pain, fever, and or chills. He does report episodes of nocturia however feels these are manageable independently. He otherwise offers no other issues or concerns at this time. [facility] Medical History Hyperlipidemia HTN (hypertension) Generalized anxiety disorder Allergic rhinitis due to pollen Benign prostatic hyperplasia without lower urinary tract symptoms Persons encountering health services in other specified circumstances Pure hypercholesterolemia, unspecified Gastro-esophageal reflux disease without esophagitis Essential (primary) hypertension Acute cough Wheezing Overweight Elevated prostate specific antigen [PSA] Surgical History Hx of surgical biopsy Family History Father No problems noted. Mother CAD (coronary artery disease) Social History Patient Tobacco Use Status: Former Tobacco user Review of Systems Const Reports as per HPI Eyes Reports no additional complaints ENT Reports no additional complaints Card Reports as per HPI Resp Reports no additional complaints GI Reports as per HPI Reports as per HPI Musc Reports no additional complaints Neuro Reports no additional complaints Psych Reports no additional complaints Endo Reports no additional complaints Jorge/Lymph Reports no additional complaints Aller/Immun Reports no additional complaints Physical Exam Const General: cooperative, healthy appearing, comfortable, no acute distress, well developed, alert and awake Orientation/consciousness: patient oriented x3 Limitations: wheelchair HEENT Head: Yes normal to inspection, Yes normocephalic and Yes atraumatic Ears: hearing grossly normal bilaterally Eyes General: appearance normal, both eyes and all related structures Neck Neck: Yes normal visual inspection and Yes trachea midline Chest Chest palpation & inspection: normal inspection of the chest Resp Effort & Inspection: normal respiratory effort and able to speak in complete sentences Cardio Rate: regular rate GI Inspection: Yes normal to inspection Rectal Exam - Male: Yes visual inspection normal, Yes normal sphincter tone and Yes prostate normal General: Yes no CVA tenderness Back/Spine/Pelvis Back: no CVA tenderness Skin General skin exam: no rashes or lesions noted Neuro General: patient oriented x3 Extrem General: Yes normal to inspection Psych Appearance: grossly normal and well kempt Mental Status: mental status grossly normal Speech and movement: Normal speech and movement present and Clear speech present Affect: normal affect Attitude: cooperative Thought process: Normal thought process present Thought content: Normal thought content present Insight: Good insight present (Psych) Judgement: Good judgement present (Psych) Office Procedures Post Void Residual Post Residual Void Post Void Residual (PVR): 0 32434-Zero Void Residual by ultrasound Results AMB Urinalysis, Automated UA Leukoctes 0 Conchita/uL Last Edit by Tana Elliott on 10/29/24 12:09 UA Nitrite Negative Last Edit by Tana Elliott on 10/29/24 12:09 UA Urobilinogen 0.2 mg/dL Last Edit by Tana Elliott on 10/29/24 12:09 UA Protein 15 mg/dL Last Edit by Tana Elliott on 10/29/24 12:09 UA pH 6.5 Last Edit by Tana Elliott on 10/29/24 12:09 UA Blood 0 Stevie/uL Last Edit by Tana Elliott on 10/29/24 12:09 UA Specific Ivanhoe 1.010 Last Edit by Tana Elliott on 10/29/24 12:09 UA Ketone Negative Last Edit by Tana Elliott on 10/29/24 12:09 UA Bilirubin 0 mg/dL Last Edit by Tana Elliott on 10/29/24 12:09 UA Glucose 0 mg/dL Last Edit by Tana Elliott on 10/29/24 12:09 Results Reviewed Results Reviewed: Laboratory Last Values Urine pH (Auto) 6.5 10/29/24 12:05 Specific [place] (Auto) 1.010 10/29/24 12:05 Urine Protein (Auto) 15 mg/dL 10/29/24 12:05 Glucose (UA)(Auto) 0 mg/dL 10/29/24 12:05 Urine Ketones (Auto) Negative 10/29/24 12:05 Urine Blood (Auto) 0 Stevie/uL 10/29/24 12:05 Urine Nitrite (Auto) Negative 10/29/24 12:05 Urine Bilirubin (Auto) 0 mg/dL 10/29/24 12:05 Urine Urobilinogen (Auto) 0.2 mg/dL 10/29/24 12:05 Leukocyte Esterase (Auto) 0 Conchita/uL 10/29/24 12:05 Assessment & Plan Assessment & Plan (1) Enlarged prostate: Code(s): N40.0 - Benign prostatic hyperplasia without lower urinary tract symptoms Category: Medical (2) Nocturia: Code(s): R35.1 - Nocturia Category: Medical (3) Elevated prostate specific antigen [PSA]: Code(s): R97.20 - Elevated prostate specific antigen [PSA] Category: Medical Plan In office urinalysis results with the patient today; as noted above. PVR 0 mL. Recent PSA results reviewed with the patient today; as noted above. Patient currently denies any bothersome urinary issues or concerns. He reports be happy with current voiding parameters. Continue finasteride as discussed and prescribed. Will obtain PSA in 6 months Follow-up in 6 months with PSA and PVR; or sooner with any issues, concerns, and or questions. Orders: Orders AMB Urinalysis Automated Today Z13.9 - Encounter for screening, unspecified Prostate Specific Antigen 6 Months N40.0 - Benign prostatic hyperplasia without lower urinary tract symptoms, R97.20 - Elevated prostate specific antigen [PSA] AMB Post Void Residual by ultrasound Today R35.1 - Nocturia Patient Instructions: The patient had an opportunity to ask questions regarding the treatment plan. All questions were answered. Physical exam, labs, and imaging were discussed and reviewed in detail. As well as risks, benefits, and discussion of treatment choices. No major barriers to understanding were identified. The patient expressed understanding and agreement with the above treatment plan. The patient was made aware they should contact our office by phone for worsening of their current condition, the appearance of new symptoms, or with any questions or concerns. Compliance is encouraged with any medications and follow up testing that is ordered. It is a privilege to be allowed the opportunity to participate in? your urological care.? Again, if you have any questions or concerns If you have any questions or concerns please do not hesitate to contact me. The office is [phone]. This note is constructed using voice recognition software. While every effort has been made to ensure accuracy business development specialist errors may have been included. Yours sincerely, MAURICE Rendon Coding Level of Care Code Est Pt Level 3 (59189) Complex EM visit Add On G2211 Diagnoses Enlarged prostate N40.0 Nocturia R35.1 Elevated prostate specific antigen [PSA] R97.20 CPT Codes Post Residual Void - PVR CPT Code: 03930-Mxbi Void Residual by ultrasound ([id number])
--- OUTSIDE RECORDS SUMMARY | 2024-10-29 14:24 | XMS_ITS | Continuity of Care Document ---
Author Name [facility] Organization [facility] Care Team Providers Care Senior Systems Programmer Name Role Phone [facility] Unavailable Unavailable Problems Combined list of problems [...] FOR DRY EYE OPHTHA LMIC ACTIVE 05/21/2025 [id number] FAM,LAC EY J 2023 45 [facility] [place] [facility] Allergies, Adverse Reactions, Alerts Combined list of allergies from Department of Defense and Veterans Affairs facilities. It does not include entries that were removed or entered in error. Substance Category Reaction Severity Reaction type Status Date Reported Comments Source CODEINE Propensity to adverse reactions to drug (finding) Syncope active 4 [facility] [place] [facility] Encounters Combined list of: 1) Encounters from Department of Veterans Affairs facilities going backup to the last 18 months, not all [place] inpatient encounters are included; 2) Encounters from the Department of [facility] facilities going backup to 280 months. Location Location Details Encounter Type Encounter Number Reason For Visit Attending Provider ADM Date DC Date Status Dis[facility] NEW PATIENT [id number] Diagnos is: ICD-10- CM H25.813 Combine d forms of age-rel ated catarac t, bilyinka al KARRI FAM J 05[facility] [place] Outpatient Encounter [id number] 05/14 [facility] [place] [place] [place] [id number] Diagnos is: ICD-10- CM H90.A32 Mix cndct/s nrl hear loss,un i,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 LUCILLE BHARDWAJ L 05/15 [facility] [place] [facility] Outpatient Encounter [id number] Diagnos is: ICD-10- CM Z46.0 Encount er for fit/adj st of spectac les and contact lenses ZANA SANTIAGO 05[facility]15 [facility] HEAR[facility] AID EXAM BOTH EARS [id number] Diagnos is: ICD-10- CM H90.A32 Mix cndct/s nrl hear loss,un i,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 Betina STEPHENSON 06/24 [facility] [place] [facility] [place] [facility] HEARING SERVICE [id number] Diagnos is: ICD-10- CM Z46.1 Encount er for fitting and adjustm ent of hearing aid Betina STEPHENSON 07/24 [facility] [place] [facility] [place] [facility] Outpatient Encounter [id number] Diagnos is: ICD-10- CM Z02.89 Encount er for other adminis trative examina tions LUCILLE BHARDWAJ L 08/07 [facility] [place] [facility] [place] [facility] HEARING AID FITTING/CH ECKING [id number] Diagnos is: ICD-10- CM Z46.1 Encount er for fitting and adjustm ent of hearing aid LUCILLE BHARDWAJ L 08/07 [facility] [place] [place] [facility] COMPRE OPH EXAM EST PT [id number] Diagnos is: ICD-10- CM H04.123 Dry eye syndrom e of bilater al lacrima l glands FAM,LACE Y J 05/20 [facility] [place] [place] [facility] FIT SPECTACLES MULTIFOCAL .[id number] Diagnos is: ICD-10- CM Z46.0 Encount er for fit/adj st of spectac les and contact lenses FAM,LACE Y J 05/20 [facility] [place] [place] [facility] RPR&REFITG SPECT XCP APHAKIA [id number] Diagnos is: ICD-10- CM Z46.0 Encount er for fit/adj st of spectac les and contact lenses CONNER MORGAN 07/03 [facility] [place] [place] [facility] [place]ERMINE [place] [id number] Diagnos is: ICD-10- CM 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 Social History Type Response Date Comment Sour e This section is an empty social history section. DoD
== END 2024-10-29 12:12 | disposition home or self-care (01) ==
PROVIDERS: PCP Internal Medicine; Visit Provider Nurse Practitioner Family
DX: N40.0 Benign prostatic hyperplasia without lower urinary tract symptoms (principal); R35.1 Nocturia; R97.20 Elevated prostate specific antigen [PSA]; Z13.9 Encounter for screening, unspecified
CPT/HCPCS: 99213

== ENCOUNTER → 2024-10-29 11:48 | Outpatient (BNVA) | payer OTHER, SELFPAY | PROVIDERS: PCP Internal Medicine; Visit Provider Nurse Practitioner Family | DX: N40.1 Benign prostatic hyperplasia with lower urinary tract symptoms (principal); R35.1 Nocturia; R97.20 Elevated prostate specific antigen [PSA] | CPT/HCPCS: 51798; 81003; 99212 ==

== ENCOUNTER 2024-11-06 08:39 | Outpatient (REF) | payer OTHER, SELFPAY ==
--- OUTSIDE RECORDS SUMMARY | 2024-11-06 09:13 | XMS_ITS | Continuity of Care Document ---
Author Name [facility] Organization [facility] Care Team Providers Care Resin Painter Name Role Phone [facility] Unavailable Unavailable Problems Combined list of problems [...] FOR DRY EYE OPHTHA LMIC ACTIVE 05/21/2025 [id number] 4 FAM,LAC EY J 2023 45 [facility] [place] [facility] Allergies, Adverse Reactions, Alerts Combined list of allergies from Department of Defense and Veterans Affairs facilities. It does not include entries that were removed or entered in error. Substance Category Reaction Severity Reaction type Status Date Reported Comments Source CODEINE Propensity to adverse reactions to drug (finding) Syncope active 4 [facility] Encounters Combined list of: 1) Encounters from Department of Veterans Affairs facilities going backup to the last 18 months, not all [place] inpatient encounters are included; 2) Encounters from the Department of [facility] facilities going backup to 280 months. Location Location Details Encounter Type Encounter Number Reason For Visit Attending Provider ADM Date DC Date Status Disposition [facility] EYE EXAM NEW PATIENT [id number] Diagnos is: ICD-10- CM H25.813 Combine d forms of age-rel ated catarac t, bilyinka al KARRI FAM J 05/14 [facility] [place] Outpatient Encounter [id number] 05/14 [facility] [place] [place] [place] [id number] Diagnos is: ICD-10- CM H90.A32 Mix cndct/s nrl hear loss,un i,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 LUCILLE BHARDWAJ L 05/15 [facility] [place] [facility] Outpatient Encounter [id number] Diagnos is: ICD-10- CM Z46.0 Encount er for fit/adj st of spectac les and contact lenses ZANA SANTIAGO 05/15 [facility] HEARING AID EXAM BOTH EARS [id number] Diagnos is: ICD-10- CM H90.A32 Mix cndct/s nrl hear loss,un i,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 Betina STEPHENSON 06/24 [facility] [place] [facility] [place] [facility] HEARING SERVICE [id number] Diagnos is: ICD-10- CM Z46.1 Encount er for fitting and adjustm ent of hearing aid Betina STEPHENSON 07/24 [facility] [place] [facility] [place] [facility] Outpatient Encounter [id number] Diagnos is: ICD-10- CM Z02.89 Encount er for other adminis trative examina tions LUCILLE BHARDWAJ L 08/07 [facility] [place] [facility] [place] [facility] HEARING AID FITTING/CH ECKING [id number] Diagnos is: ICD-10- CM Z46.1 Encount er for fitting and adjustm ent of hearing aid LUCILLE BHARDWAJ L 08/07 [facility] [place] [place] [facility] COMPRE OPH EXAM EST [place] [id number] Diagnos is: ICD-10- CM H04.123 Dry eye syndrom e of bilater al lacrima l glands FAM,LACE Y J 05/20 [facility] [place] [facility] [place] [facility] FIT SPECTACLES MULTIFOCAL .63 [id number] Diagnos is: ICD-10- CM Z46.0 Encount er for fit/adj st of spectac les and contact lenses FAM,LACE Y J 05/20 [facility] [place] [facility] [facility] [place] [facility] RPR&REFITG SPECT XCP APHAKIA [id number] Diagnos is: ICD-10- CM Z46.0 Encount er for fit/adj st of spectac les and contact lenses CONNER MORGAN 07/03 [facility] [place] [facility] [facility] [place] [facility] [place] [id number] Diagnos is: ICD-10- CM 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 Social History Type Response Date Comment Sour e This section is an empty social history section. DoD
[2024-11-06 11:56] LABS: Anion Gap 10 (12-20); Blood Urea Nitrogen 13 mg/dL (9-16); Calcium 10.7 mg/dL (8.4-10.2); Carbon Dioxide 27 mmol/L (22-29); Chloride 108 mmol/L (96-108); Estimated Glomerular Filt Rate > 60; Glucose Random 96 mg/dL (60-115); Potassium 4.2 mmol/L (3.3-5.1); Sodium 141 mmol/L (135-145)
[2024-11-06 12:25] LABS: Parathyroid Hormone Intact 116.6 pg/mL (8.7-77.1)
== END 2024-11-06 08:40 | disposition home or self-care (01) ==
LOC: HO.WFDLDS 08:39
PROVIDERS: Visit Provider Internal Medicine
DX: I10 Essential (primary) hypertension (principal); E83.52 Hypercalcemia
CPT/HCPCS: 36415; 80048; 83970

== ENCOUNTER 2025-01-28 14:08 | Outpatient (AMB) | payer OTHER, SELFPAY ==
--- NOTE | 2025-01-28 14:05 | MHC.PC.OV ---
Vital Signs 01/28/25 14:06 Height 5 ft 7 in Weight 188 lb BMI 29.4 BP 132/80 Blood Pressure Location Lt brachial Position Sitting Pulse 79 Pulse Source Pulse Oximeter Temp 98.5 F Temp Source Axillary Pulse Oximetry (%) 98 Oxygen Delivery Method Room Air Oxygen Flow Rate 79 Intake Visit Reasons: Routine Director Nurses' Registry Required: No Accompanied by: Self / Same As Patient Allergies codeine Allergy (Verified 01/28/25 14:06) Fainting Tobacco use date assessed: 01/28/25 Fall risk assessment: No Falls in past year Last assessed Fall Risk: 01/28/25 Dental Screening Dental Screen Date: 01/28/25 Did you have a dental visit in the last 12 months?: Yes Did you have a dental problem in the last 6 months where you did not have access to dental care?: No HPI HPI Comments History of Present Illness Details 79 year old male with a past medical history anemia, anxiety, GERD, hypertension, hyperlipidemia, elevated psa presenting for follow up. Last pcp visit in september. CV: on amlodipine, losartan, simvastatin.BP 132/80.Chronic exertional dyspnea, cough. Left sided facial pressure, sinus congestion. Following with urology for elevated psa. On finasteride, flomax Colonoscopy: years ago. Was told he would not need further ROS see HPI PHYSICAL EXAM: GENERAL: Alert and oriented x 3. NAD EYES: EOMI. Anicteric. HENT: Moist mucous membranes. No scleral icterus. No cervical lymphadenopathy. LUNGS: Clear to auscultation bilaterally. CARDIOVASCULAR: Regular rate and rhythm. No murmur. No JVD. ABDOMEN: Soft, non-tender +bs EXTREMITIES: No edema. Non-tender. SKIN: No rashes or lesions. Warm. NEUROLOGIC: No focal neurological deficits. CN II-XII grossly intact PSYCHIATRIC: Cooperative. Appropriate mood and affect [facility] Medical History Hyperlipidemia HTN (hypertension) Generalized anxiety disorder Allergic rhinitis due to pollen Benign prostatic hyperplasia without lower urinary tract symptoms Persons encountering health services in other specified circumstances Pure hypercholesterolemia, unspecified Gastro-esophageal reflux disease without esophagitis Essential (primary) hypertension Acute cough Wheezing Overweight Elevated prostate specific antigen [PSA] Surgical History Hx of surgical biopsy Family History Father No problems noted. Mother CAD (coronary artery disease) Social History Housing: House Patient Tobacco Use Status: Former Tobacco user e-Cigarette/Vaping Use: Former Use service: No Current occupational status: retired Cognitive needs: No Hearing needs: Yes (bilateral hearing aids) Vision needs: Yes (rx glasses) Questionnaire PHQ-9 Over the last 2 weeks, how often have you been bothered by any of the following problems? 1. Little interest or pleasure in doing things: not at all 2. Feeling down, depressed, or hopeless: not at all 3. Trouble falling or staying asleep, or sleeping too much: not at all 4. Feeling tired or having little energy: not at all 5. Poor appetite or overeating: not at all 6. Feeling bad about yourself - or that you are a failure or have let yourself or your family down: not at all 7. Trouble concentrating on things, such as reading the newspaper or watching television: not at all 8. Moving or speaking so slowly that other people could have noticed. Or the opposite - being so fidgety or restless that you have been moving around a lot more than usual: not at all 9. Thoughts that you would be better off or of hurting yourself in some way: not at all Total score: 0 Depression Screening Interpretation: Negative Depression Screening Done: Yes 55677 - PHQ-9 Billing: Yes Source: Developed by Drs. Sonny Haines, Judy Yoo, Jose R Hercules and colleagues, with an educational jenifer from [employer]. Thrive Questionnaire Date Thrive assessed: 01/28/25 I am a: Patient Within the past 12 months, did the food you bought not last and you didn't have the money to get more?: Never true Within the past 12 months, did you worry whether your food would run out before you got money to buy more?: Never true Do you have trouble paying for medicines?: No Do you have trouble getting transportation to medical appointments?: No Do you have trouble paying your heating and electricity bill?: No Do you have trouble taking care of your child, family member or friend?: No Do you have trouble with day-to-day activities such as bathing, preparing meals, shopping, managing finances, etc.?: No Are you currently unemployed and looking for a job?: No Are you interested in more education?: No THRIVE Score: 0 AUDIT C Alcohol Use Questionnaire (AUDIT-C) 1. How often do you have a drink containing alcohol?: Monthly or less 2. How many drinks containing alcohol do you have on a typical day when you are drinking?: 1 or 2 3. How often do you have six or more drinks on one occasion?: Less than monthly Total Score: 2 ELAINA-7 AMB Questionnaire ELAINA-7 Date ELAINA - 7 assessed: 01/28/25 Feeling nervous, anxious, or on edge: 0 = Not at all Not being able to stop or control worryin = Not at all Worrying too much about different things: 0 = Not at all Trouble relaxin = Not at all Being so restless that it is hard to sit still: 0 = Not at all Becoming easily annoyed or irritable: 0 = Not at all Feeling afraid as if something awful might happen: 0 = Not at all Total ELAINA-7 score (0-4 normal; 5-9 mild; 10-14 moderate; 15-21 severe): 0 Source: Developed by Drs. Sonny Haines, Judy Yoo, Jose R Hercules and colleagues, with an educational jenifer from [employer]. Physical exam (Primary Care) Vital Signs: Last Vital Signs Temp 98.5 F 01/28/25 14:06 Pulse 79 01/28/25 14:06 BP 132/80 01/28/25 14:06 Pulse Ox 98 01/28/25 14:06 Oxygen Delivery Method Room Air 01/28/25 14:06 Oxygen Flow Rate 79 01/28/25 14:06 BMI result Body Mass Index 29.4 Tobacco/Smoking Status: Tobacco use Status Tobacco use date assessed 01/28/25 01/28/25 14:07 Patient Tobacco Use Status Former Tobacco user 01/28/25 14:07 e-Cigarette/Vaping Use Former Use 01/28/25 14:07 PHQ-9: PHQ-9 Score PHQ-9: Total score 0 01/31/25 18:25 Depression Screening Interpretation: Negative Thrive Assessment: Date of Thrive Assessment Date Thrive assessed 01/28/25 01/28/25 14:07 Coding Level of Care Code New Pt Level 4 (04343) Complex EM visit Add On G2211 Diagnoses Exertional dyspnea R06.09 Chest pain, unspecified type R07.9 Chest pain type: unspecified Anemia, unspecified type D64.9 Anemia type: unspecified type Primary hypertension I10 Hypertension type: primary hypertension Nocturia R35.1 Additional Codes PHQ-9 - 93408 - PHQ-9 Billing: Yes ([id number]) Assessment & Plan Assessment & Plan (1) Exertional dyspnea: Code(s): R06.09 - Other forms of dyspnea Category: Medical (2) Chest pain: Code(s): R07.9 - Chest pain, unspecified Category: Medical Qualifiers: Chest pain type: unspecified Qualified Code(s): R07.9 - Chest pain, unspecified (3) Anemia: Code(s): D64.9 - Anemia, unspecified Category: Medical Qualifiers: Anemia type: unspecified type Qualified Code(s): D64.9 - Anemia, unspecified (4) HTN (hypertension): Code(s): I10 - Essential (primary) hypertension Category: Medical Qualifiers: Hypertension type: primary hypertension Qualified Code(s): I10 - Essential (primary) hypertension (5) Nocturia: Code(s): R35.1 - Nocturia Category: Medical Plan 79 yo to establish care Past medical surgical social reviewed sinusitis-doxycycline sent Chronic exertional dyspnea-stress test, echo ordered Anemia-labs ordered Orders: Orders Vitamin B12 and Folate 01/29/25 D64.9 - Anemia, unspecified, R53.83 - Other fatigue Complete Blood Count Auto Diff 01/29/25 D64.9 - Anemia, unspecified, R53.83 - Other fatigue IRON PROFILE 01/29/25 D64.9 - Anemia, unspecified, R53.83 - Other fatigue TSH reflex Free T4 01/29/25 D64.9 - Anemia, unspecified, R53.83 - Other fatigue Hemoglobin A1c 01/29/25 D64.9 - Anemia, unspecified, R53.83 - Other fatigue Pathologist Review - CBC 01/29/25 D64.9 - Anemia, unspecified, R53.83 - Other fatigue Alkaline Phosphatase Isoenzyme 01/29/25 D64.9 - Anemia, unspecified, R53.83 - Other fatigue Protein Electrophoresis, Serum 01/29/25 D64.9 - Anemia, unspecified, R53.83 - Other fatigue Protein Electrophoresis,Ran Ur 01/29/25 D64.9 - Anemia, unspecified, R53.83 - Other fatigue CA stress test 01/28/25 R06.09 - Other forms of dyspnea, R07.9 - Chest pain, unspecified CA echo transthoracic complete 01/28/25 R06.02 - Shortness of breath, R06.09 - Other forms of dyspnea Medications: New doxycycline hyclate 100 mg PO BID 20 tabs 0RF trazodone 150 mg PO BEDTIME PRN 90 tabs 3RF sleep
[2025-01-28 14:06] VITALS: BP 132/80; PULSE 79; TEMP 36.9; O2SAT 98; BMI 29.4
--- OUTSIDE RECORDS SUMMARY | 2025-01-28 14:20 | XMS_ITS | Continuity of Care Document ---
Author Name [facility] Organization [facility] Care Team Providers Care Unit Manager [employer] Name Role Phone [facility] Unavailable Unavailable Problems Combined list of problems from Department of [place] and Veterans [facility] facilities. It does not include entries that were removed or entered in error. 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, bilateral Active Diagnosis [facility] [place] [facility] Diagnosis: ICD-10-CM Z46.0 Encounter for fit/adjst of spectacles and contact lenses Active [facility] [place] [facility] Diagnosis: ICD-10-CM H04.123 Dry eye syndrome of bilateral lacrimal glands Active Diagnosis [facility] [place] [facility] Diagnosis: ICD-10-CM Z46.1 Encounter for fitting and adjustment of hearing aid Active Diagnosis [facility] [place] [facility] Diagnosis: ICD-10-CM Z02.89 Encounter for other administrative examinations Active [facility] Medications Combined list of outpatient medications from Department of [place] and [facility] facilities.Medications provided include 1) outpatient medications from the last 15 months, and 2) patient-reported medications. Medication Details Route Status Patient Instructions Prescription Expires Prescription Number Last Dispense Date Ordering Provider Order Date Order Qty Source CARBOXYMETH YLCELLULOSE NA 0.5% SOLN,OPH INSTILL 1 DROP INTO EACH EYE FOUR TIMES A DAY FOR DRY EYE OPHTHA LMIC ACTIVE 05/21/2025 [id number] OMAR FAM EY J 2023 45 [facility] [place] [facility] Allergies, Adverse Reactions, Alerts Combined list of allergies from Department of [place] and Veterans Affairs facilities. It does not include entries that were removed or entered in error. Substance Category Reaction Severity Reaction type Status Date Reported Comments Source CODEINE Propensity to adverse reactions to drug (finding) Syncope active 4 [facility] [place] [facility] Encounters Combined list of: 1) Encounters from Department of Veterans Affairs facilities going backup to the last 18 months, not all [place] inpatient encounters are included; 2) Encounters from the Department of Defense facilities going backup to 280 months. Location Location Details Encounter Type Encounter Number Reason For Visit Attending Provider ADM Date DC Date Status Disposition Source [place] [facility] [place] [facility] Outpatient Encounter [id number] Diagnos is: ICD-10- CM Z02.89 Encount er for other adminis trative examina tions LUCILLE BHARDWAJ UREN L 08/07 [facility] [place] [place] [facility] [place] [facility] HEARING AID FITTING/CH ECKING [id number] Diagnos is: ICD-10- CM Z46.1 Encount er for fitting and adjustm ent of hearing aid LUCILLE BHARDWAJ UREN L 08/07 [place] [facility] [place] [facility] [place] [place] [facility] [place] [id number] Diagnos is: ICD-10- CM H04.123 Dry eye syndrom e of bilater al lacrima l glands KARRI FAM Y Alexandr 05/20 [facility] [place] [facility] [place] [facility] FIT SPECTACLES MULTIFOCAL [id number] Diagnos is: ICD-10- CM Z46.0 Encount er for fit/adj st of spectac les and contact lenses KARRI FAM 05/20 [place] [facility] [place] [facility] [place] [facility] RPR&REFITG SPECT XCP APHAKIA [id number] Diagnos is: ICD-10- CM Z46.0 Encount er for fit/adj st of spectac les and contact lenses CONNER MORGAN 07/03 [facility] [place] [facility] [place] [facility] DETERMINE REFRACTIVE STATE [id number] Diagnos is: ICD-10- CM H52.223 Regular astigma tism, bilater al ISAIAH LAY 07/03 [facility] [place] [facility] FIT SPECTACLES BIFOCAL [id number] Diagnos is: ICD-10- CM Z46.0 Encount er for fit/adj st of spectac les and contact lenses [facility] LAY 07/03 [facility] Social History Combined list of available smoking, tobacco, and other social history from Department of Defense and Veterans Affairs facilities. Social History Type Response Date Comment Sour e This section is an empty social history section. [facility] Plan of Care List of future care activities from Department of Veterans Affairs facilities. Additional future care activities may be listed in the Assessment and Plan section. Date/Time Care Activity Care Activity Detail Facili ty 05/26/2025 AMBULATORY - MEDICINE [facility]
== END 2025-01-28 14:44 | disposition home or self-care (01) ==
PROVIDERS: PCP Internal Medicine; Visit Provider Internal Medicine
DX: R06.09 Other forms of dyspnea (principal); R07.9 Chest pain, unspecified; D64.9 Anemia, unspecified; I10 Essential (primary) hypertension; R35.1 Nocturia

== ENCOUNTER → 2025-01-28 14:08 | Outpatient (BNVA) | payer OTHER, SELFPAY | PROVIDERS: PCP Internal Medicine; Visit Provider Internal Medicine | DX: R06.09 Other forms of dyspnea (principal); R07.9 Chest pain, unspecified; D64.9 Anemia, unspecified; I10 Essential (primary) hypertension; R35.1 Nocturia; J32.9 Chronic sinusitis, unspecified; Z79.899 Other long term (current) drug therapy | CPT/HCPCS: 96127; 99202 ==

== ENCOUNTER 2025-01-29 09:11 | Outpatient (REF) | payer OTHER, SELFPAY ==
[2025-01-29 11:28] LABS: MANUAL DIFF FLAG NO
[2025-01-29 11:53] LABS: Basophils Absolute Auto 0.1 X10*3/uL (0.0-0.2); Eosinophils Absolute Auto 0.4 X10*3/uL (0.0-0.4); Hematocrit 38.5 % (42.0-52.0); Hemoglobin 12.2 g/dl (14.0-18.0); Imm Gran Abs Auto 0.03 X10*3/uL (0.00-0.03); Imm Gran Pct Auto 0.3 % (0.0-0.4); Lymphocytes Absolute Auto 1.4 X10*3/uL (1.2-4.9); Mean Corpuscular HGB Conc 31.7 g/dl (31.0-36.0); Mean Corpuscular Hemoglobin 28.8 pg (27.0-33.0); Mean Platelet Volume 9.7 fL (9.4-12.4); Monocytes Percent Auto 10.5 % (2-11); Neutrophils Absolute Auto 6.5 x10*3/uL (2.0-8.3); Neutrophils Percent Auto 69.2 % (45-73); Platelet Count 352 X10*3/uL (160-400); Red Blood Count 4.23 X10*6/uL (4.60-5.80); Red Cell Distribution Width 14.2 % (11.0-16.0); White Blood Count 9.3 X10*3/uL (4.8-10.8)
[2025-01-29 12:10] LABS: Estimated Average Glucose 105 mg/dL; Hemoglobin A1c % 5.3 % (<6.0)
[2025-01-29 12:33] LABS: Iron 34 mcg/dL (45-160); Percent Iron Saturation 9 % (15-50); Total Iron Binding Capacity 366 mcg/dL (228-428); Unsaturated Iron Binding 332 ug/dL
[2025-01-29 12:51] LABS: TSH reflex Free T4 0.95 uIU/mL (0.32-4.0)
[2025-01-29 13:14] LABS: Folate 8.5 ng/mL (> or = 4.0); Vitamin B12 224 pg/mL (200-900)
[2025-02-01 21:59] LABS: Prot Elec - Albumin 3.6 g/dL (3.8-4.8); Prot Elec - Alpha1 0.3 g/dL (0.2-0.3); Prot Elec - Alpha2 0.9 g/dL (0.5-0.9); Prot Elec - Beta 1 0.5 g/dL (0.4-0.6); Prot Elec - Beta 2 0.3 g/dL (0.2-0.5); Prot Elec - Gamma 0.9 g/dL (0.8-1.7); Prot Elec - Total Protein 6.4 g/dL (6.1-8.1)
[2025-02-02 12:04] LABS: PEU-Protein Creat Ratio Rand 0.259 (0.025-0.148); PEU-Rand. Prot/Creat Ratio 259 mg/g creat (25-148); PEU-Random Ur. Gamma Globulin 15 %; PEU-Random Urine A1 Globulin 11 %; PEU-Random Urine A2 Globulin 15 %; PEU-Random Urine Albumin 35 %; PEU-Random Urine Beta Globulin 24 %; PEU-Random Urine Creatinine 135 mg/dL (20-320); PEU-Random Urine Protein 35 mg/dL (5-25)
[2025-02-02 15:43] LABS: Alk.Phos Iso. Macrohepatic 0 % (<=0); Alk.Phos Isoenzymes Bone 36 % (28-66); Alk.Phos Isoenzymes Intest 0 % (1-24); Alk.Phos Isoenzymes Liver 64 % (25-69); Alk.Phos Isoenzymes Placental 0 % (<=0); Alk.Phos Isoenzymes Total 68 U/L (35-144)
== END 2025-01-29 09:12 | disposition home or self-care (01) ==
LOC: HO.WFDLDS 09:11
PROVIDERS: Visit Provider Internal Medicine
DX: R53.83 Other fatigue (principal); D64.9 Anemia, unspecified
CPT/HCPCS: 82570; 82607; 82746; 83036; 83540; 84080; 84156; 84165; 84166; 84443; 85025

== ENCOUNTER → 2025-03-25 08:42 | Outpatient (REF) | payer OTHER, SELFPAY ==
--- NOTE | 2025-03-25 08:44 | CA_ITS ---
Transthoracic Echocardiogram Patient (Last, First, Middle): Zach Berger R F Gender: Male Date of : 1945 Age: 79 Procedure Date: 03/25/2025 Procedure Type: Transthoracic Echocardiogram Location: OP Height: 170.18 cm Weight: 85.28 kg BSA: 1.97 m2 Heart Rate: 90 bpm BP: 132 / 78 mmHg Curtain Cutter Hand: DHEERAJ Referring MD: Catalina Arias MD Vegetable Cutter: Kev Espitia MD Symptoms: I10 - Essential (primary) hypertension Study Quality: Adequate ECG Rhythm: Sinus Conclusions: - 1. Normal LV ejection fraction 55-60% with mild asymmetric septal hypertrophy with impaired relaxation filling pattern 2. Normal cardiac valvular Dopplers 3. No gross pericardial effusion Findings Procedure Information The quality of the study was technically difficult. The study quality is limited by patients body habitus and lung artifact. Left Ventricle Normal left ventricular size, thickness, and systolic function. The visually estimated ejection fraction is between 55-60%. There is no dynamic left ventricular outflow tract obstruction. Spectral Doppler is indicative of an impaired relaxation filling pattern. E/E prime ratio is <8, consistent with normal filling pressures. There is mild septal asymmetric hypertrophy. Right Ventricle Normal right ventricular cavity size and systolic function. Atria Both atria are normal in size. There is no evidence of interatrial shunt. Aortic Valve The aortic valve structure and function is likely normal. There is no aortic valve stenosis. There is no aortic valve regurgitation. Mitral Valve Normal mitral valve structure and function. There is trace mitral valve regurgitation. There is no mitral valve stenosis. Pulmonic Valve The pulmonic valve is likely normal. Tricuspid Valve Likely normal tricuspid valve structure and function. Tricuspid regurgitation envelope is inadequate for calculation of right ventricular systolic pressure. Normal right atrial pressure. Great Vessels All visible segments of the aorta are normal in size. The pulmonary artery was not well visualized. There is no dilatation of the ascending aorta measuring 3.20 cm. Venous The inferior vena cava is normal in size and collapses greater than 50% with inspiration. Pericardium/Pleural There is no evidence of pericardial effusion. Measurements 2D Linear Measurements IVSd: 0.91 0.6-0.9/0.6-1.0 cm LVIDd: 5.09 3.9-5.3/4.2-5.9 cm LVIDd Index: 2.58 2.4-3.2/2.2-3.1 cm/m2 LVIDs: 3.56 2.0-3.6 cm LVPWd: 0.58 0.7-1.1 cm LA Diam: 3.10 2.7-3.8/3.0-4.0 cm LAIDs Index: 1.57 1.5-2.3 cm/m2 LV Mass: 158.73 67-162/88-224 g LV Mass Index: 80.58 43-95/49-115 g/m2 LVOT Diam: 2.10 3.0+(-)1.3 cm 2D Systolic Function EF 4C: 52.80 >55% EF 2C: 57.30 >55% EF BiP: 54.80 >55% Mitral Valve MV Pk E: 0.87 MV PK A: 0.98 MV Decel Time: 172.00 E/A: 0.90 E'Lateral: 8.38 E'Medial: 8.05 E/E' Med: 10.70 E/E' Lat: 10.30 PHT: 50.00 MVA PHT: 4.40 Decel Metcalfe: 5.04 Aortic Valve AoV Pk Kane: 1.15 AoV Pk Grad: 5.00 BETSY: 3.19 LVOT LVOT Pk Kane: 1.04 LVOT Mn Kane: 0.73 LVOT VTI: 0.21 LVOT Pk Grad: 4.00 LVOT Mn Grad: 2.00 LVOT Diam: 2.10 LVOT Area: 3.46 Diastolic Function MV Pk E: 0.87 MV Pk A: 0.98 E/A: 0.90 E'Medial: 8.05 E/E' Med: 10.70 E' Laterial: 8.38 E/E' Lat: 10.30 Right Ventricle TAPSE (mm): 20.90 TVS' Kane: 10.70 Tricuspid Valve RA Press: 3.00 Great Vessels Aorta Sinus of Valsalva: 3.90 2.0-3.5 cm Ao Asc: 3.20 2.1-3.4 cm Pulmonary Valve PV Pk Kane: 1.29 Peak PV Grad: 7.00 Updated in Other Vendor System with Status of Final Kev Espitia MD electronically signed on 03/25/2025 12:22:57 PM with status of Final
--- NOTE | 2025-03-25 08:44 | CA_ITS ---
Acquisition Time: 2025-03-25 09:53:41 Total Exercise Time: 00:05:00 Test Indications: Dyspnea Medications: LOSARTAN OMEPRAZOLE FINASTAERIDE SIMVASTATIN TAMSU;LOSIN Protocol: ESTHER Max HR: 144 BPM 102% of Pred: 141 BPM Max BP: 160/70 mmHG Max Work Load: 6.4 METS Exercise stress test with exercise 5 mins of Esther Protocol, achieving 102% MPHR, reduced speed to 2.2mph for the last 30 secs, with reports of 7/10 left sided chest tightness that went across his chest, with lightheadedness with isolated PVCs, with normotensive response to exercise. Without any EKG changes meeting criteria for ischemia. In recovery, chest tightness and lightheadedness resolved and breathing improved. Test reviewed with Dr. Christensen. Referred By: Catalina Arias Electronically Signed By: Edil Eng
--- OUTSIDE RECORDS SUMMARY | 2025-03-25 09:04 | XMS_ITS | Continuity of Care Document ---
Author Name [facility] Organization [facility] Care Team Providers Care Supervisor Dairy Sanitation Name Role Phone [facility] Unavailable Unavailable Problems Combined list of problems from Department of [facility] and [facility] facilities. It does not include entries that were removed or entered in error. 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, bilateral Active Diagnosis [facility] [place] [facility] Diagnosis: ICD-10-CM Z46.0 Encounter for fit/adjst of spectacles and contact lenses Active [facility] [place] [facility] Diagnosis: ICD-10-CM H04.123 Dry eye syndrome of bilateral lacrimal glands Active Diagnosis [facility] [place] [facility] Medications Combined list of outpatient medications from Department of [facility] and [facility] facilities.Medications provided include 1) outpatient medications from the last 15 months, and 2) patient-reported medications. Medication Details Route Status Patient Instructions Prescription Expires Prescription Number Last Dispense Date Ordering Provider Order Date Order Qty Source CARBOXYMETH YLCELLULOSE NA 0.5% SOLN,OPH INSTILL 1 DROP INTO EACH EYE FOUR TIMES A DAY FOR DRY EYE OPHTHA LMIC ACTIVE 05/21/2025 [id number] 4 OMAR FAM J 2023 45 [facility] [place] [facility] Allergies, Adverse Reactions, Alerts Combined list of allergies from Department of [facility] and [facility] facilities. It does not include entries that were removed or entered in error. Substance Category Reaction Severity Reaction type Status Date Reported Comments Source CODEINE Propensity to adverse reactions to drug (finding) Syncope active 4 [facility] [place] [facility] Encounters Combined list of: 1) Encounters from [facility] facilities going backup to the last 18 months, not all [place] inpatient encounters are included; 2) Encounters from the Department of [facility] facilities going backup to 280 months. Location Location Details Encounter Type Encounter Number Reason For Visit Attending Provider ADM Date DC Date Status Disposition Source [facility] [place] [id number] Diagnos is: ICD-10- CM H04.123 Dry eye syndrom e of bilater al lacrima l glands KARRI FAM 05/20 [facility] [place] [facility] [place] FIT SPECTACLES MULTIFOCAL [id number] Diagnos is: ICD-10- CM Z46.0 Encount er for fit/adj st of spectac les and contact lenses KARRI FAM 05/20 [facility] [place] [facility] [facility] [place] RPR&REFITG SPECT XCP APHAKIA [id number] Diagnos is: ICD-10- CM Z46.0 Encount er for fit/adj st of spectac les and contact lenses CONNER MORGAN 07/03 [facility] [place] [facility] [facility] [place] DETERMINE REFRACTIVE [place] [id number] Diagnos is: ICD-10- CM H52.223 Regular astigma herminia catherine al ISAIAH LAY 07/03 [facility] [place] [facility] [place] FIT SPECTACLES BIFOCAL [id number] Diagnos is: ICD-10- CM Z46.0 Encount er for fit/adj st of spectac les and contact lenses ISAIAH LAY 07/03 [facility] [place] [facility] Social History Combined list of available smoking, tobacco, and other social history from Department of Defense and Veterans Affairs facilities. Social History Type Response Date Comment Sourc e This section is an empty social history section. DoD Plan of Care List of future care activities from Department of Veterans Affairs facilities. Additional future care activities may be listed in the Assessment and Plan section. Date/Time Care Activity Care Activity Detail Facili ty 05/26/2025 AMBULATORY - MEDICINE [facility]
--- OUTSIDE RECORDS SUMMARY | 2025-03-25 09:05 | XMS_ITS | Patient Health Record ---
Author Organization [facility] Address [address] [place] [id number] Care Team Providers Care Felt Hat Inspector And Packer Name Role Phone Sonny Dolan Unavailable [phone] Reason For Referral No Information Plan Of Treatment No Information
== END ==
LOC: HO.CARD 08:42
PROVIDERS: PCP Internal Medicine; Visit Provider Internal Medicine
DX: R07.89 Other chest pain (principal); R06.09 Other forms of dyspnea; R06.02 Shortness of breath; I10 Essential (primary) hypertension
CPT/HCPCS: 93017; 93306

== ENCOUNTER → 2025-03-25 08:44 | Outpatient (BNV) | payer OTHER, SELFPAY | PROVIDERS: PCP Internal Medicine | DX: I42.2 Other hypertrophic cardiomyopathy (principal); I10 Essential (primary) hypertension; I49.3 Ventricular premature depolarization; R07.89 Other chest pain | CPT/HCPCS: 93016; 93018; 93320; 93325; 93350 ==

== ENCOUNTER 2025-04-06 13:13 | Outpatient (AMB) | payer OTHER, SELFPAY ==
--- NOTE | 2025-04-06 13:28 | A.OFFVIS_ITS ---
Vital Signs 04/06/25 13:29 Height 5 ft 7 in Weight 185 lb 3.013 oz BMI 29.0 BP 126/74 Blood Pressure Location Lt brachial Position Sitting Pulse 68 Intake Visit Reasons: fu recent stress test Intake Note: Follow-up with ekg after echo and stress test feeling good Leg Man Required: No Allergies codeine Allergy (Verified 01/28/25 14:06) Fainting Medication List - Last Reconciled 04/06/25 by Kev Espitia MD finasteride 5 mg PO DAILY 90 days losartan 50 mg PO DAILY omeprazole 40 mg PO DAILY simvastatin 20 mg PO BEDTIME trazodone 150 mg PO BEDTIME PRN HPI Comments Details: Zach comes for follow-up after recent stress test. This is auto because he recently complained of chest tightness while he was working in the [employer]. However in June last year he had a coronary CTA which had shown nonobstructive disease. The stress test was within normal limits. Echocardiogram shows normal LV ejection fraction. Since exercising on a treadmill he said he feels well. He has not had any recurrent symptoms although does not exercise on regular basis. [facility] Medical History Hyperlipidemia HTN (hypertension) Generalized anxiety disorder Allergic rhinitis due to pollen Benign prostatic hyperplasia without lower urinary tract symptoms Persons encountering health services in other specified circumstances Pure hypercholesterolemia, unspecified Gastro-esophageal reflux disease without esophagitis Essential (primary) hypertension Acute cough Wheezing Overweight Elevated prostate specific antigen [PSA] Surgical History Hx of surgical biopsy Family History Father No problems noted. Mother CAD (coronary artery disease) Social History Housing: House Patient Tobacco Use Status: Former Tobacco user e-Cigarette/Vaping Use: Former Use service: No Current occupational status: retired Cognitive needs: No Hearing needs: Yes (bilateral hearing aids) Vision needs: Yes (rx glasses) Review of Systems Const Denies chills, Denies fatigue, Denies fever(s), Denies frequent falls, Denies weakness, Denies weight gain and Denies weight loss ENT Denies dizziness Card Denies chest pain, Denies leg edema, Denies lightheadedness, Denies palpitations, Denies dyspnea, Denies dyspnea on exertion, Denies orthopnea and Denies other (loss of consciousness) Resp Denies cough, Denies dyspnea and Denies dyspnea on exertion GI Denies hematochezia and Denies change in stool character Musc Denies abnormal gait, Denies muscle weakness, Denies numbness, Denies radiating pain into limb and Denies tingling Neuro Denies Abnormal speech present, Denies abnormal gait, Denies dizziness, Denies frequent falls, Denies numbness, Denies tingling and Denies weakness Endo Denies fatigue and Denies palpitations Physical Exam Vital Signs: Last Vital Signs Pulse 68 04/06/25 13:29 BP 126/74 04/06/25 13:29 BMI result Body Mass Index 29.0 Const General: cooperative, comfortable, no acute distress, alert, awake and Physically active Nutritional Appearance: obese Orientation/consciousness: patient oriented x3 Limitations: no limitations HEENT Head: Yes normocephalic and Yes atraumatic Neck Neck: Yes trachea midline, Yes supple and Yes no JVD Resp Effort & Inspection: normal respiratory effort Auscultation: clear to auscultation bilaterally Cardio Jugular venous distension: no JVD Palpation: normal PMI Rate: regular rate Rhythm: regular rhythm Heart sounds: S1 normal heart sound present, S2 normal heart sound present, no click, no gallops, no murmurs and no rubs GI Inspection: Yes obesity Auscultation: normal bowel sounds Skin General skin exam: no rashes or lesions noted Neuro General: patient oriented x3 and no focal motor deficits Speech: No Abnormal speech present Extrem General: Yes no clubbing, cyanosis or edema Psych Appearance: grossly normal Office Procedures EKG Details: EKG shows normal sinus rhythm with first-degree AV block with moderate voltage criteria for LVH with isolated Q-waves in lead 3 suggestive of pseudo infarct pattern [id number]-Iilclrbwivuovjlfe, Complete Assessment & Plan Assessment & Plan (1) CAD (coronary artery disease): Comment: Nonobstructive by coronary CTA, June 2024 Code(s): I25.10 - Atherosclerotic heart disease of [place] coronary artery without angina pectoris Category: Medical Plan: Nonobstructive CAD in this elderly gentleman with by coronary CTA last year with recent stress test within normal limits for chest pain which appear to be exertional. Given his nonobstructive CAD by coronary CTA as well as normal stress test no further workup is indicated at this point time. Also no change in therapy. I have only suggested to add low-dose aspirin therapy to his regimen. Continue statin therapy with target goal LDL less than 70 mg/dL. Continue aggressive blood pressure control, see below. He is encouraged to participate in regular physical activity and exercise program. (2) HTN (hypertension): Code(s): I10 - Essential (primary) hypertension Category: Medical Qualifiers: Hypertension type: primary hypertension Qualified Code(s): I10 - Essential (primary) hypertension Plan: Hypertension which is currently well optimized advised to monitor blood pressure at home maintain a log. Goal blood pressure less than 130/84. Low-salt diet was discussed. Importance of compliance with medication was discussed. Encouraged to participate in regular physical activity. Will follow up in the clinic in 2 years time, sooner p.r.n.. Thank you for allowing me to partake in his care Coding Level of Care Code Est Pt Level 4 (43095) Complex EM visit Add On G2211 Diagnoses CAD (coronary artery disease) I25.10 Primary hypertension I10 Hypertension type: primary hypertension CPT Codes EKG - CPT: 36820-Kikhmlngdxauahpeu, Complete ([id number])
[2025-04-06 13:29] VITALS: BP 126/74; PULSE 68; BMI 29.0
--- OUTSIDE RECORDS SUMMARY | 2025-04-06 13:51 | XMS_ITS | Continuity of Care Document ---
Author Name [facility] Organization [facility] Care Team Providers Care Rope Cleaner Name Role Phone [facility] Unavailable Unavailable Problems Combined list of problems from Department of [facility] and [facility] facilities. It does not include entries that were removed or entered in error. 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, bilateral Active Diagnosis [facility] [place] [facility] Diagnosis: ICD-10-CM Z46.0 Encounter for fit/adjst of spectacles and contact lenses Active [facility] [place] [facility] Diagnosis: ICD-10-CM H04.123 Dry eye syndrome of bilateral lacrimal glands Active Diagnosis [facility] [place] [facility] Medications Combined list of outpatient medications from Department of [facility] and [facility] facilities.Medications provided include 1) outpatient medications from the last 15 months, and 2) patient-reported medications. Medication Details Route Status Patient Instructions Prescription Expires Prescription Number Last Dispense Date Ordering Provider Order Date Order Qty Source CARBOXYMETH YLCELLULOSE NA 0.5% SOLN,OPH INSTILL 1 DROP INTO EACH EYE FOUR TIMES A DAY FOR DRY EYE OPHTHA LMIC ACTIVE 05/21/2025 [id number] 4 OMAR FAM J 2023 45 [facility] [place] [facility] Allergies, Adverse Reactions, Alerts Combined list of allergies from Department of [facility] and [facility] facilities. It does not include entries that were removed or entered in error. Substance Category Reaction Severity Reaction type Status Date Reported Comments Source CODEINE Propensity to adverse reactions to drug (finding) Syncope active 4 [facility] [place] [facility] Encounters Combined list of: 1) Encounters from Department of Veterans Affairs facilities going backup to the last 18 months, not all [place] inpatient encounters are included; 2) Encounters from the Department of [facility] facilities going backup to 280 months. Location Location Details Encounter Type Encounter Number Reason For Visit Attending Provider ADM Date DC Date Status Disposition Source [facility] [place] [id number] Diagnos is: ICD-10- CM H04.123 Dry eye syndrom e of bilater al lacrima l glands KARRI FAM 05/20 [facility] [place] [facility] [facility] [place] FIT SPECTACLES MULTIFOCAL [id number] Diagnos is: ICD-10- CM Z46.0 Encount er for fit/adj st of spectac les and contact lenses KARRI FAM 05/20 [facility] [place] [facility] [facility] [place] [facility] RPR&REFITG SPECT XCP APHAKIA [id number] Diagnos is: ICD-10- CM Z46.0 Encount er for fit/adj st of spectac les and contact lenses CONNER MORGAN 07/03 [facility] [place] [facility] [place] [facility] [place] [id number] Diagnos is: ICD-10- CM H52.223 Regular astigma herminia catherine al ISAIAH LAY 07/03 [facility] [place] [facility] [place] [facility] FIT SPECTACLES BIFOCAL [id number] Diagnos is: ICD-10- CM Z46.0 Encount er for fit/adj st of spectac les and contact lenses ISAIAH LAY 07/03 [place] [facility] [place] [facility] Social History Combined list of available [...] 05/26/2025 AMBULATORY - MEDICINE [facility]
--- OUTSIDE RECORDS SUMMARY | 2025-04-06 13:52 | XMS_ITS | Patient Health Record ---
Author Organization [facility] Address [address] [place] [id number] Care Team Providers Care Unix Administrator Name Role Phone Sonny Dolan Unavailable [phone] Reason For Referral No Information Plan Of Treatment No Information
== END 2025-04-06 14:21 | disposition home or self-care (01) ==
LOC: HO.HCS 13:13
PROVIDERS: PCP Internal Medicine; Visit Provider Internal Medicine Cardiovascular Disease
DX: I25.10 Atherosclerotic heart disease of native coronary artery without angina pectoris (principal); I10 Essential (primary) hypertension
CPT/HCPCS: 93010; 99214

== ENCOUNTER → 2025-04-06 13:13 | Outpatient (BNVA) | payer OTHER, SELFPAY | PROVIDERS: PCP Internal Medicine; Visit Provider Internal Medicine Cardiovascular Disease | DX: Z71.2 Person consulting for explanation of examination or test findings (principal); I25.10 Atherosclerotic heart disease of native coronary artery without angina pectoris; I10 Essential (primary) hypertension | CPT/HCPCS: 93005; 99212 ==

== ENCOUNTER 2025-04-15 08:10 | Outpatient (REF) | payer OTHER, SELFPAY ==
--- OUTSIDE RECORDS SUMMARY | 2025-04-15 08:13 | XMS_ITS | Continuity of Care Document ---
Author Name [facility] Organization [facility] Care Team Providers Care State Pilot Name Role Phone [facility] Unavailable Unavailable Problems Combined list of problems from Department of [facility] and [facility] facilities. It does not include entries that were removed or entered in error. 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, bilateral Active Diagnosis [facility] [place] [facility] Diagnosis: ICD-10-CM Z46.0 Encounter for fit/adjst of spectacles and contact lenses [facility] [place] [facility] Diagnosis: ICD-10-CM H04.123 Dry eye syndrome of bilateral lacrimal glands Active Diagnosis [facility] [place] [facility] Medications Combined list of outpatient medications from [facility] and [facility] facilities.Medications provided include 1) outpatient medications from the last 15 months, and 2) patient-reported medications. Medication Details Route Status Patient Instructions Prescription Expires Prescription Number Last Dispense Date Ordering Provider Order Date Order Qty Source CARBOXYMETH YLCELLULOSE NA 0.5% SOLN,OPH INSTILL 1 DROP INTO EACH EYE FOUR TIMES A DAY FOR DRY EYE OPHTHA LMIC ACTIVE 05/21/2025 [id number] 4 OMAR FAM J 2023 [facility] [place] Allergies, Adverse Reactions, Alerts Combined list of allergies from [facility] of [facility] and [facility] facilities. It does not include entries that were removed or entered in error. Substance Category Reaction Severity Reaction type Status Date Reported Comments Source CODEINE Propensity to adverse reactions to drug (finding) Syncope active 4 [facility] [place] [facility] Encounters Combined list of: 1) Encounters from [facility] facilities going backup to the last 18 months, not all [place] inpatient encounters are included; 2) Encounters from the Department of [facility] facilities going backup to 280 months. Location Location Details Encounter Type Encounter Number Reason For Visit Attending Provider ADM Date DC Date Status Disposition Source [facility] [place] [id number] Diagnos is: ICD-10- CM H04.123 Dry eye syndrom e of bilater al lacrima l glands KARRI FAM 05/20 [facility] [place] [facility] [facility] [place] [facility] FIT SPECTACLES MULTIFOCAL [id number] Diagnos is: ICD-10- CM Z46.0 Encount er for fit/adj st of spectac les and contact lenses KARRI FAM 05/20 [facility] [place] [facility] [place] [facility] RPR&REFITG SPECT XCP APHAKIA [id number] Diagnos is: ICD-10- CM Z46.0 Encount er for fit/adj st of spectac les and contact lenses CONNER MORGAN 07/03 [facility] [place] [facility] [place] [facility] [place]ER[place] [id number] Diagnos is: ICD-10- CM H52.223 Regular astigma herminia catherine al ISAIAH LAY 07/03 [facility] [place] [facility] [facility] [place] [facility] FIT SPECTACLES BIFOCAL [id number] Diagnos is: ICD-10- CM Z46.0 Encount er for fit/adj st of spectac les and contact lenses ISAIAH LAY 07/03 [place] [facility] [place] [facility] Social History Combined list of [...] 05/26/2025 AMBULATORY - MEDICINE AMBULATORY - MEDICI [facility]
--- OUTSIDE RECORDS SUMMARY | 2025-04-15 08:16 | XMS_ITS | Patient Health Record ---
Author Organization [facility] Address [address] [place] [phone] Care Team Providers Care Accelerator Operator Name Role Phone Sonny Dolan Unavailable [phone] Reason For Referral No Information Plan Of Treatment No Information
[2025-04-15 12:14] LABS: Prostate Specific Antigen 3.74 ng/mL (<0.05-4.0)
== END 2025-04-15 08:11 | disposition home or self-care (01) ==
LOC: HO.WFDLDS 08:10
PROVIDERS: Visit Provider Nurse Practitioner Family
DX: N40.0 Benign prostatic hyperplasia without lower urinary tract symptoms (principal); R97.20 Elevated prostate specific antigen [PSA]; Z12.5 Encounter for screening for malignant neoplasm of prostate
CPT/HCPCS: 36415; 84153

== ENCOUNTER 2025-04-28 11:03 | Outpatient (AMB) | payer OTHER, SELFPAY ==
--- OUTSIDE RECORDS SUMMARY | 2024-05-20 06:00 | XMS_ITS ---
Author Name [facility] [place] [facility] [place] [facility] [place] [facility] [place] Address [address] [place] [id number] Support Name Relationship Address Phone LUIS CARLOS KELLY Next of Kin [address] [place] [phone] LUIS CARLOS KELLY Emergency Contact [address] [place] [address] Insurance Providers: All historical and current Section Date Range: From patient's date of to the date document was created. This section includes the names of all active insurance providers for the patient. Insurance Provider Type of Coverage Plan Name Start of Policy Coverage End of Policy Coverage Group Number Member ID Insurance Provider's Telephone Number Policy Reid's Name Patient's Relationship to Policy Reid [employer] RX PRESCRIPT ION RX Apr 21, 2023 THPRX [id number] [phone] [place] LLIAM [facility]IENT [facility] Sep 02, 2017 [facility] [place] [id number] [place] L[place] PATIENT [facility] BEKAH EMERY LEUNG E Sep 02, 2017 [facility] [place] [id number] [place] LLIAM PATIENT Selected Encounter This section includes the information on record at [place] for the Encounter. Date/Time Encounter Type Encounter Description Reason Provider Source May 20, 2024 10:00 AM COMPRE OPH EXAM EST PT 1/> OPTOMETRY ICD-10-CM H04.123 Dry eye syndrome of bilateral lacrimal glands JOHNNY FAM Encounter Template Text not used by VA Assessments - Encounter Diagnoses This section includes the primary and secondary diagnoses documented for the Encounter. Date/Time Primary/Secondary Diagnosis Diagnosis Name Provider Source May 20, 2024 02:42 PM PRIMARY Dry eye syndrome of bilateral lacrimal glands [facility] [place] May 20, 2024 02:42 PM SECONDARY Combined forms of age-related cataract, bilateral [facility] May 20, 2024 02:42 PM SECONDARY Presbyopia [facility]Y FAM [facility] [place] May 20, 2024 02:42 PM SECONDARY Puckering of macula, left eye [facility]Y FAM [facility] Plan of Treatment: Future Appointments (+ 6 months) and Future Tests (+/- 45 days) The Plan of Treatment section includes future care activities for the patient from all [place] treatmentfacilities. This section includes future appointments and future orders which are active, pending or scheduled. Future Appointments This section includes appointments that were scheduled to occur 6 months from the date of the Encounter, up to a maximum of 20 appointments. The data comes from all [place] treatment facilities. Appointment Date/Time Appointment Type Appointme nt Facility Name Jul 03, 2024 11:20 AM [facility] Jul 03, 2024 12:30 PM [facility] Encounter Notes: All associated encounter notes This section contains the clinical notes associated to the Encounter. Date/Time Encounter Note(s) Provider Source May 20, 2024 07:10 AM OPTOMETRY NOTE: LOCAL TITLE: OPTOMETRY NOTE STANDARD TITLE: OPTOMETRY NOTE DATE OF NOTE: MAY 20, 2024@07:10 ENTRY DATE: MAY 20, 2024@07:10:58 AUTHOR: ROMELIA BAH EXP COSIGNER: JOHNNY FAM URGENCY: STATUS: COMPLETED OPTOMETRY NOTE Has ADDENDA Problem List - Active - NONE FOUND Active Outpatient Medications (including Supplies): No Medications Found Allergies: Codeine All medications including those prescribed by outside VA's, community providers, and all OTC meds were reviewed and reconciled with patient to the best of their abilities. This 78 year old MALE is seen today for annual CEE KANCHAN: 05/15/23 Chief Complaint: [place] complains of blurry vision at distance with cc and constantly has tearing (worse at downgaze and up close) with occastional burning sensation OU. He does not use any eye drops. also reported that he has to wear sunglasses to drive at night because the glares/halos is affecting his night vision. OHx: 1. Mixed cataracts OU 2. NONI OU 3. Hyperopia with astigmatism and presbyopia OU Ocular Medications:None (-) Pain: (-) OH: (-) Diplopia: (-) Flashes: (-) Floaters: (-) Amaurosis Fugax/Tia's: (-) Eye Injury: (-) Eye Surgery: (-) TBI FOHx: (-) Glaucoma/ARMD/Blindness VITALS (most recent, as listed in the electronic record): B/P: Pulse: Temperature: Weight: Height: BMI: BMI: PERTINENT LABS: HEMOGLOBIN A1C TREND No data available (-) Smoker/Length of Time/PPD: Current Rx with last BCVA: OD: +2.50-0.75 x100 20/20- OS: +2.25-0.75 x105 20/20- Add:+2.75 DVA ( )sc ( x )cc - phoropter OD: 20/50+1 OS: 20/25 Pupils: PERRL (-)APD EOMs: SAFE OU, (-)Pain/Diplopia CVF (facial, peripheral): FTFC OU Subjective Refraction: OD: +3.50-2.75 x090 20/30-2 OS: +1.75-0.75 x105 20/20-2 Add: +2.75 20/25 All the above performed by student, reviewed by attending Anterior segment: Performed by student, repeated by attending Lids: Mild lower lid scalloping and dermatochalasis OU Mild collarettes UL OU Conj: Moderate conjunctivachalasis temp>nasal OU Cornea: (+) Surface irregularity superiorly around limbal margin and (+) 3 spots of negative staining within the surface irregularity OU (+) Diffused, trace SPKs at mid-periphery OU (-)k spindle OU AC: D&Q OU Angles: 4x4 OU Iris: (+) 2 small, flat iris nevi far periphery at 1 and 7 o'clock, but not at the angle OD Lens: 2+ NS with 2+ ACC with mild spoking periphery and mild vacuole OU (-)PXF OU Tonometry: Performed by student, reviewed by attending [x] GAT [ ] iCare OD 16 mmHg OS 16 mmHg Time: 10:20am Fundus exam: Dilated: xxxx Non dilated: Dilating Drops: 1GTT 1 % Tropicamide OU & 1GTT 2.5% Phenylephrine OU (Pt. ed. on side effects, dilation warning given and verbal consent obtained) Patient advised not to drive if they feel they have any symptoms which could affect their ability to drive safely. Patient advised not to engage in any activities which could put themselves or others at risk if they feel they have any symptoms which could affect their ability to perform those activities safely. Performed by student, repeated by attending Vit: clear OU (-) PVD OU C/D: 0.20 OU pink & healthy rim tissue OU Macula: Mild ERM OS, flat and clear OD PPole: clear OU A/V: 2/3 Vessels: normal caliber OU Periph: flat and intact (-) holes, tears, detachments 360 OU Assessment/Plan: 1. Dry eyes OU; symptomatic - Pt. ed. on todays findings and explained to pt that conjunctivochalasis could cause tearing at downgaze at near - Ordering Refresh - Ed. pt. to use up to QID OU even on days when eyes are not feeling dry - Monitor 2.Combined Form Cataracts OU - Pt. ed. on findings - cataracts are visually significant and that surgery should be considered at this time - Pt deferred cataract consult referral at this appointment - Ed. on importance of UV protection and on symptoms of glare - Continue to monitor 3.Epiretinal membrane OS - Pt. ed. on findings - Mild, does not affect vision OS at this time - Monitor 4. Refractive Error and presbyopia OU - Pt. ed. on todays findings - Is going to pick out new frames for PALs - clear and yellow tint - Monitor Return to Clinic 1yr or earlier PRN Medication Reconciliation: Outpatient: Has the patient been taking medications as documented in the EMLR? YES: The patient has been taking medications as documented in the EMLR. Essential Medication List for Review used to complete this medication reconciliation. INCLUDED IN THIS LIST: Alphabetical list of active outpatient prescriptions dispensed from this VA (local) and dispensed from another VA or DoD facility (remote) as well as inpatient orders (local, pending and active), local clinic medications, locally documented non-VA medications, and local prescriptions that have or been discontinued in the past 90 days. - All changes in medications, including all non-VA/Herbal/OTC medications were entered into CPRS. - If there were any medications the patient should no longer take, they were discontinued. - The patient/caregiver was instructed to update this list, discard old lists, and take this list to the next appointment, whether with a VA or non-VA provider. Medication List: JLV Link Data on this list may not be complete. Please check JLV. Allergies/ADRs (Tool #5) FACILITY ALLERGY/ADR -------- No Remote Allergy/ADR Data available for this patient [place] [facility] CODEINE Med. Reconciliation (Tool #1) INCLUDED IN THIS LIST: Alphabetical list of active outpatient prescriptions dispensed from this VA (local) and dispensed from another [place] or [facility] facility (remote) as well as inpatient orders (local pending and active), local clinic medications, locally documented non-VA medications, and local prescriptions that have or been discontinued in the past 90 days. Non-VA Meds Last Documented On: Data not found NOTE The display of VA prescriptions dispensed from another [place] or [facility] facility (remote) is limited to active outpatient prescription entries matched to National Drug File at the originating site and may not include some items such as investigational drugs, compounds, etc. NOT INCLUDED IN THIS LIST: Medications self-entered by the patient into personal health records (i.e. [employer]) are NOT included in this list. Non-VA medications documented outside this [place], remote inpatient orders (regardless of status) and remote clinic medications are NOT included in this list. The patient and provider must always discuss medications the patient is taking, regardless of where the medication was dispensed or obtained. OUTPT CARBOXYMETHYLCELLULOSE NA 0.5% OPH SOLN (Status = Active/Suspended) INSTILL 1 DROP INTO EACH EYE FOUR TIMES A DAY FOR DRY EYE Rx# [id number] Last Released: Qt/Days Supply: Rx Expiration Date: 05/21/25 Refills Remainin Indication: FOR DRY EYE SUPPLIES PHARMACY TERMS AND POSSIBLE PATIENT ACTIONS INPT = [place] inpatient order IV = [place] intravenous medication OUTPT = [place] outpatient prescription PHARMACY POSSIBLE PATIENT TERMS EXPLANATION ACTIONS -------- - ACTIVE A prescription that can be If you have refills, filled at the local [place] pharmacy. you may request a refill of this prescription from your [place] pharmacy. CLINIC A medication you received during If you have questions a visit to a [place] clinic or about this medication emergency department. contact your [place] healthcare team. DISCONTINUED A prescription your provider has Contact your VA stopped. It is no longer healthcare team if you available to be sent to you or need more of this picked up at the [place] pharmacy medication. window. A prescription which is too old Contact your VA to fill. This does not refer to healthcare team if you the expiration date of the need more of this medication in the container. medication. NON-VA A medication that came from If this medication someplace other than a VA information is pharmacy. This may be a incorrect or out of prescription from either the VA date, please tell your or non VA providers that was VA healthcare team. filled outside the VA. Or, it may be an jzzf-kzi-kaahsby (OTC), herbal, dietary supplements or sample medication. ON HOLD An active prescription that will Contact your VA not be filled until pharmacy pharmacy when you need resolves the issue. more of this medication. PARKED An active prescription that will Contact your VA not be filled until the patient pharmacy when you need requests it. this medication. PENDING This prescription order has been If you have been sent to the pharmacy for review instructed to start and is not ready yet. this medication now, contact your VA pharmacy. SUSPENDED An active prescription that is Contact your [place] not scheduled to be filled yet. pharmacy if you need You should receive it before this medication now. you run out. ==== (x) Printed Medication Reconciliation List Offered and Declined by () Medication Reconciliation List Printed for [place] at Exam () Optometry HT Please Print and Mail Copy of Medication Reconciliation List () AMSA Please Print and Mail Copy of Medication Reconciliation List /maxim/ ROMELIA BAH OPTOMETRY STUDENT Signed: 05/20/2024 16:19 /maxim/ JOHNNY FAM OD PAYROLL AUDITOR Cosigned: 05/20/2024 16:26 05/20/2024 ADDENDUM STATUS: COMPLETED The optometry accounting intern participated in this exam, I saw this in conjunction with the optometry student. The entrance tests and refraction were performed by the student and reviewed by me. I personally met with the patient, confirmed the hisory, complaints and the student's findings, and performed slit lamp and fundus evaluation as indicated. I reviewed and agree with the stated findings, assessment and plan. I have added/edited the documentation to reflect my exam findings and changes to the assessment and plan. Ed re today's findings. [place] repeated back the plan and education. All reminders completed by attending and documented in student note. /maxim/ JOHNNY FAM OD PAYROLL AUDITOR Signed: 05/20/2024 16:26 ROMELIA BAH [place] [facility]
--- OUTSIDE RECORDS SUMMARY | 2024-07-03 07:20 | XMS_ITS ---
Author Name [facility] [place] [facility] [facility] [place] Address [address] [place] [id number] Support Name Relationship Address Phone LUIS CARLOS KELLY Next of Kin [address] [place] [phone] LUIS CARLOS KELLY Emergency Contact [address] [place] [address] Insurance Providers: All historical and [...] PRESCRIPT ION RX Apr 21, 2023 THPRX [id number] [phone] [place] PATIENT [facility] PLAN [facility] B[facility] [place] Sep 02, 2017 [facility] [id number] [phone] [place] PATIENT [facility] BEKAH EMERY LEUNG E Sep 02, 2017 [facility] [id number] [phone] [place] PATIENT Selected Encounter This section includes the information on record at [place] for the Encounter. Date/Time Encounter Type Encounter Description Reason Provider Source Jul 03, 2024 11:20 AM RPR&REFITG SPECT XCP APHAKIA OPTOMETRY ICD-10-CM Z46.0 Encounter for fit/adjst of spectacles and contact lenses HARDY MORGAN Encounter Template Text not used by [facility] Assessments - Encounter Diagnoses This section includes the primary and secondary diagnoses documented for the Encounter. Date/Time Primary/Secondary Diagnosis Diagnosis Name Provider Source Jul 03, 2024 11:52 AM PRIMARY Encounter for fit/adjst of spectacles and contact lenses HARDY MORGAN [facility] Encounter Notes: All associated encounter notes This section contains the clinical notes associated to the Encounter. Date/Time Encounter Note(s) Provider Source Jul 03, 2024 11:44 AM OPTOMETRY NOTE: LOCAL TITLE: OPTOMETRY NOTE STANDARD TITLE: OPTOMETRY NOTE DATE OF NOTE: JUL 03, 2024@11:44 ENTRY DATE: JUL 03, 2024@11:44:48 AUTHOR: HARDY MORGAN EXP COSIGNER: URGENCY: STATUS: COMPLETED Patient came in today with his new glasses and stated that he cant read with the glasses. I measured RX, seg ht and all made correctly, adjusted glasses maybe needed to bring measurement up a little bit. Patient looked at reading card was reading OD:20/40 and stating blurry OS 20/25, tapped lenses off and he was able to get to reading area with OS but struggle with OD. Spoke with Dr. Schulte to see if he was able to see patient for RX check. Approved There was a big change in OD(+3.50 -2.75 X90) compared to 2022 (+2.50 -0.50 X100) this could be a factor. Dr. Schulte will determine if there is change or if patient needs to stick with Bifocals. /maxim/ HARDY BENAVIDES [facility] TECHINICIAN Signed: 07/03/2024 11:52 HARDY MORGAN [facility]
--- NOTE | 2025-04-28 11:08 | MHC.OFFVIS ---
Intake Visit Reasons: 6m/PSA/PVR Intake Note: Patient is present for 6M/PSA/PVR Urology Medication:FINASTERIDE Antibiotic Allergy:NONE Blood Thinner:NONE TODAY'S PVR:0ML'S Yarn Preparation Supervisor Required: No Allergies codeine Allergy (Verified 04/28/25 12:01) Fainting Medication List - Last Reconciled 04/28/25 by CE Rendon- finasteride 5 mg PO DAILY 90 days losartan 50 mg PO DAILY omeprazole 40 mg PO DAILY simvastatin 20 mg PO BEDTIME trazodone 150 mg PO BEDTIME PRN HPI Comments Details: Zach Ford is a very pleasant 79-year-old male patient of Dr. Hernández. He has a past medical history of anxiety, allergic rhinitis, hypercholesteremia, GERD, hypertension, and overweight. He presents to the office today for follow-up of his elevated PSA. In discussion with the patient today reports to be doing and feeling well. He denies having had any bothersome urinary issues or concerns since his last office visit here. He reports compliance with finasteride 5 mg daily as prescribed. Recent PSA results reviewed with the patient today as noted and trended below. PSAs: 06/23 4.7, 03/24 4.9 and% free PSA 18, 06/24 6.4, 06/24 6.0 and% free PSA 17%, 08/24 7.4 and % free PSA 18% 12/24 2.4 04/25 3.7, 06/25 3.0, 10/27 2.5, 04/26 3.7 Previous workup has included a retroperitoneal ultrasound 08/24 noting bilateral kidneys with no calculi, lesions, and or hydronephrosis noted. The bladder is well distended and normal. Pre void bladder volume is approximately 160 mL. Postvoid bladder volume is approximately 20 mL. Prostate volume is approximately 35 mL. We did discuss increase in PSA over the last 6 months. We discussed potential causes of this finding. We also discussed further treatment options and risks and benefits of these treatment options. He discusses his recent trip to [facility] with his son and grandson. In office urinalysis results reviewed with the patient today. PVR 0 mL. He denies incontinence, hematuria, dysuria, foul smelling urine, changes to urinary stream, flank pain, fever, and or chills. He does report episodes of nocturia however feels these are manageable independently. He otherwise offers no other issues or concerns at this time. [facility] Medical History Hyperlipidemia HTN (hypertension) Generalized anxiety disorder Allergic rhinitis due to pollen Benign prostatic hyperplasia without lower urinary tract symptoms Persons encountering health services in other specified circumstances Pure hypercholesterolemia, unspecified Gastro-esophageal reflux disease without esophagitis Essential (primary) hypertension Acute cough Wheezing Overweight Elevated prostate specific antigen [PSA] Surgical History Hx of surgical biopsy Family History Father No problems noted. Mother CAD (coronary artery disease) Social History Housing: House Patient Tobacco Use Status: Former Tobacco user e-Cigarette/Vaping Use: Former Use service: No Current occupational status: retired Cognitive needs: No Hearing needs: Yes (bilateral hearing aids) Vision needs: Yes (rx glasses) Review of Systems Const Reports as per HPI Eyes Reports no additional complaints ENT Reports no additional complaints Card Reports as per HPI Resp Reports no additional complaints GI Reports as per HPI Reports as per HPI Musc Reports no additional complaints Neuro Reports no additional complaints Psych Reports no additional complaints Endo Reports no additional complaints Jorge/Lymph Reports no additional complaints Aller/Immun Reports no additional complaints Physical Exam Const General: cooperative, healthy appearing, comfortable, no acute distress, well developed, alert and awake Orientation/consciousness: patient oriented x3 Limitations: wheelchair HEENT Head: Yes normal to inspection, Yes normocephalic and Yes atraumatic Ears: hearing grossly normal bilaterally Eyes General: appearance normal, both eyes and all related structures Neck Neck: Yes normal visual inspection and Yes trachea midline Chest Chest palpation & inspection: normal inspection of the chest Resp Effort & Inspection: normal respiratory effort and able to speak in complete sentences Cardio Rate: regular rate GI Inspection: Yes normal to inspection Rectal Exam - Male: Yes visual inspection normal, Yes normal sphincter tone and Yes prostate normal General: Yes no CVA tenderness Back/Spine/Pelvis Back: no CVA tenderness Skin General skin exam: no rashes or lesions noted Neuro General: patient oriented x3 Extrem General: Yes normal to inspection Psych Appearance: grossly normal and well kempt Mental Status: mental status grossly normal Speech and movement: Normal speech and movement present and Clear speech present Affect: normal affect Attitude: cooperative Thought process: Normal thought process present Thought content: Normal thought content present Insight: Good insight present (Psych) Judgement: Good judgement present (Psych) Office Procedures Post Void Residual Post Residual Void Post Void Residual (PVR): 0 21896-Lccc Void Residual by ultrasound Results AMB Urinalysis, Automated UA Leukoctes 0 Conchita/uL Last Edit by MACIE Salazar on 04/28/25 11:22 UA Nitrite Negative Last Edit by Romero Baltazar CCM on 04/28/25 11:22 UA Urobilinogen 0.2 mg/dL Last Edit by Romero Baltazar CCM on 04/28/25 11:22 UA Protein 15 mg/dL Last Edit by Romero Baltazar CCM on 04/28/25 11:22 UA pH 6.0 Last Edit by Romero Baltazar [facility] on 04/28/25 11:22 UA Blood 0 Stevie/uL Last Edit by Romero Baltazar [facility] on 04/28/25 11:22 UA Specific [place] 1.025 Last Edit by Romero Baltazar CCM on 04/28/25 11:22 UA Ketone Negative Last Edit by Romero Baltazar CCM on 04/28/25 11:22 UA Bilirubin 0 mg/dL Last Edit by Romero Baltazar [facility] on 04/28/25 11:22 UA Glucose 0 mg/dL Last Edit by Romero Baltazar [facility] on 04/28/25 11:22 Results Reviewed Results Reviewed: Laboratory Last Values Urine pH (Auto) 6.0 04/28/25 11:22 Specific [place] (Auto) 1.025 04/28/25 11:22 Urine Protein (Auto) 15 mg/dL 04/28/25 11:22 Glucose (UA)(Auto) 0 mg/dL 04/28/25 11:22 Urine Ketones (Auto) Negative 04/28/25 11:22 Urine Blood (Auto) 0 Stevie/uL 04/28/25 11:22 Urine Nitrite (Auto) Negative 04/28/25 11:22 Urine Bilirubin (Auto) 0 mg/dL 04/28/25 11:22 Urine Urobilinogen (Auto) 0.2 mg/dL 04/28/25 11:22 Leukocyte Esterase (Auto) 0 Conchita/uL 04/28/25 11:22 Assessment & Plan Assessment & Plan (1) Elevated prostate specific antigen [PSA]: Code(s): R97.20 - Elevated prostate specific antigen [PSA] Category: Medical (2) Nocturia: Code(s): R35.1 - Nocturia Category: Medical (3) Enlarged prostate: Code(s): N40.0 - Benign prostatic hyperplasia without lower urinary tract symptoms Category: Medical (4) Urinary frequency: Code(s): R35.0 - Frequency of micturition Category: Medical Plan In office urinalysis results with the patient today; as noted above. PVR 0 mL. Recent PSA results reviewed with the patient today; as noted above. Patient currently denies any bothersome urinary issues or concerns. He reports be happy with current voiding parameters. Continue finasteride as discussed and prescribed. We did discussed potential causes of slight increase in PSA over the last 6 months; we did discussed further interventions and risks and benefits of these interventions. Will obtain PSA in 4 months Follow-up in 4 months with PSA and PVR; or sooner with any issues, concerns, and or questions. Orders: Orders AMB Urinalysis Automated Today Z13.9 - Encounter for screening, unspecified Prostate Specific Antigen 4 Months N40.0 - Benign prostatic hyperplasia without lower urinary tract symptoms, R35.0 - Frequency of micturition, R35.1 - Nocturia, R97.20 - Elevated prostate specific antigen [PSA] Patient Instructions: The patient had an opportunity to ask questions regarding the treatment plan. All questions were answered. Physical exam, labs, and imaging were discussed and reviewed in detail. As well as risks, benefits, and discussion of treatment choices. No major barriers to understanding were identified. The patient expressed understanding and agreement with the above treatment plan. The patient was made aware they should contact our office by phone for worsening of their current condition, the appearance of new symptoms, or with any questions or concerns. Compliance is encouraged with any medications and follow up testing that is ordered. It is a privilege to be allowed the opportunity to participate in? your urological care.? Again, if you have any questions or concerns If you have any questions or concerns please do not hesitate to contact me. The office is [phone]. This note is constructed using voice recognition software. While every effort has been made to ensure accuracy roof tiler errors may have been included. Yours sincerely, MAURICE Rendon Coding Level of Care Code Est Pt Level 3 (98701) Complex EM visit Add On G2211 Diagnoses Elevated prostate specific antigen [PSA] R97.20 Nocturia R35.1 Enlarged prostate N40.0 Urinary frequency R35.0 CPT Codes Post Residual Void - PVR CPT Code: 13243-Opnr Void Residual by ultrasound ([id number])
--- OUTSIDE RECORDS SUMMARY | 2025-04-28 11:57 | XMS_ITS | Continuity of Care Document ---
Author Name [facility] Organization [facility] Care Team Providers Care Retort Pre Cooker Name Role Phone [facility] Unavailable Unavailable Problems Combined list of problems from Department of [facility] and [facility] facilities. It does not include entries that were removed or entered in error. 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, bilateral Active Diagnosis [facility] [place] [facility] Diagnosis: ICD-10-CM Z46.0 Encounter for fit/adjst of spectacles and contact lenses [facility] [place] [facility] Diagnosis: ICD-10-CM H04.123 Dry eye syndrome of bilateral lacrimal glands Active Diagnosis [facility] [place] [facility] Medications Combined list of outpatient medications from Department of [facility] and [facility] facilities.Medications provided include 1) outpatient medications from the last 15 months, and 2) patient-reported medications. Medication Details Route Status Patient Instructions Prescription Expires Prescription Number Last Dispense Date Ordering Provider Order Date Order Qty Source CARBOXYMETH YLCELLULOSE NA 0.5% SOLN,OPH INSTILL 1 DROP INTO EACH EYE FOUR TIMES A DAY FOR DRY EYE OPHTHA LMIC ACTIVE 05/21/2025 [id number] 4 [facility] FAM J [facility]23 [facility] [place] [facility] Allergies, Adverse Reactions, Alerts Combined list of allergies from Department of [facility] and [facility] facilities. It does not include entries that were removed or entered in error. Substance Category Reaction Severity Reaction type Status Date Reported Comments Source CODEINE Propensity to adverse reactions to drug (finding) Syncope active [address] [facility] [place] [facility] Encounters Combined list of: 1) Encounters from [facility] facilities going backup to the last 18 months, not all [place] inpatient encounters are included; 2) Encounters from the Department of [facility] facilities going backup to 280 months. Location Location Details Encounter Type Encounter Number Reason For Visit Attending Provider ADM Date DC Date Status Disposition Source [facility] [place] [facility] [id number] Diagnos is: ICD-10- CM H04.123 Dry eye syndrom e of bilater al lacrima l glands KARRI FAM 05/20 [facility] [place] FIT SPECTACLES MULTIFOCAL [id number] Diagnos is: ICD-10- CM Z46.0 Encount er for fit/adj st of spectac les and contact lenses KARRI FAM 05/20 [facility] [place] RPR&REFITG SPECT XCP APHAKIA [id number] Diagnos is: ICD-10- CM Z46.0 Encount er for fit/adj st of spectac les and contact lenses CONNER MORGAN 07/03 [facility] [place] DETERMINE REFRACTIVE STATE [id number] Diagnos is: ICD-10- CM H52.223 Regular astigma herminia catherine al ISAIAH LAY 07/03 [facility] [place] FIT SPECTACLES BIFOCAL [id number] Diagnos is: ICD-10- CM Z46.0 Encount er for fit/adj st of spectac les and contact lenses ISAIAH LAY 07/03 [facility] [place] [facility] Social History Combined list of available [...] 05/26/2025 AMBULATORY - MEDICINE AMBULATORY - MEDICI [facility]
--- OUTSIDE RECORDS SUMMARY | 2025-04-28 11:59 | XMS_ITS | Patient Health Record ---
Author Organization [facility] Address [address] [place] [id number] Care Team Providers Care Mechanical Maintenance Technician Name Role Phone Sonny Dolan Unavailable [phone] Reason For Referral No Information Plan Of Treatment No Information
--- OUTSIDE RECORDS SUMMARY | 2025-04-28 11:59 | XMS_ITS | Encounter Summary ---
Author Organization [facility] Address [address] [place] [address] Care Team Providers Care Video Manager Name Role Phone Meghan Scott MD Primary Care Provider Unava Dolly Fu MD Primary Care Provider Unavaila Anselmo Powell MD Primary Care Provider Unavailable Bernadine Lutz DO Primary Care Provider Unavaila nataliya [facility], Pcp Primary Care Provider [facility] Encounter Details Date Type Department Care Team Description 09/10/2018 PNO Controlled Substance Contract Medical Records [address] [place] [id number] Abstract, Provider Social History Tobacco Use Types Packs/Day Years Used Date Smoking Tobacco: Former Cigarettes 1.5 25 Smokeless Tobacco: Former Comments:quit 20 yrs ago Alcohol Use Standard Drinks/Week Comments No 0 (1 standard drink = 0.6 oz pur e alcohol) very rare Sex Assigned at Date Recorded Not on file documented as of this encounter Plan of Treatment Not on file documented as of this encounter Visit Diagnoses Not on filedocumented in this encounter Care Teams Video Manager Relationship Specialty Start Date End Date Meghan Scott MD PCP - General Internal Medicine 10/24/20 12/20/20 Dolly Tatum MD PCP - General Internal Medicine 12/21/20 03/21/21 Anselmo Srivastava MD PCP - General Internal Medicine 03/22/2108/22 Bernadine Lutz DO PCP - General Internal Medicine 08/14/21 02/24/23 [facility], Pcp PCP - General Internal Medicine 02/25/23 documented as of this encounter
--- OUTSIDE RECORDS SUMMARY | 2025-04-28 11:59 | XMS_ITS | Clinical Summary ---
Author Organization [facility] Address [address] [place] [address] Care Team Providers Care Deputy Sheriff Building Guard Name Role Phone [facility], Pcp Primary Care Provider Unavailabl e Allergies Active Allergy Reactions Severity Noted Date Comments Codeine-Guaifenesin OTHER 11/12/2011 Passed out cold Medications Medication Sig Dispensed Refills Start Date End Date Status [place]-3 Fatty Acids (FISH OIL) 1000 MG CPDR Take 1 capsule by mouth 3 times daily. 90 Cap 0 06/23/2012 Active simvastatin (ZOCOR) 20 MG tablet Take 1 Tablet by mouth at bedtime. 90 Tablet 1 01/11/2022 Active losartan (COZAAR) 50 MG tablet Take 1 Tablet by mouth daily. 90 Tablet 1 01/11/2022 Active ALBUTEROL SULFATE (ProAir HFA) 108 (90 Base) MCG/ACT Aero SolnIndications:Bron chitis with acute wheezing Inhale 2 Puffs into the lungs 4 times daily as needed for Cough or Wheezing. 8.5 g 1 04/17/2022 Active cetirizine (ZYRTEC) 10 MG tabletIndications:Ac ulises serous otitis media of left ear, recurrence not specified Take 1 Tablet by mouth daily for 360 days. 30 Tablet 2 04/17/2022 Active fluticasone 50 MCG/ACT nasal sprayIndications:Acu te serous otitis media of left ear, recurrence not specified Instill 1 spray in each nostril twice daily. 16 mL 1 05/09/2022 Active lorazepam (ATIVAN) 1 MG tabletIndications:An xiety Take 1 Tablet by mouth every 8 hours as needed for Anxiety. 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 HTN (hypertension) 11/12/2011 Hyperlipidemia 11/12/2011 Anxiety 11/12/2011 Overview: Lot of stress related to taking care of his mother in law Immunizations Name Administration Dates Next Due COVID-19 (Moderna) PT Reported 08/01/2021,2020,12/31/2020 Covid-19 Bivalent (Pfizer) 07/02/2022 Influenza (> 6 Months) 06/09/2014,2012,05/13/2012,07/03 Influenza Flu (PT Reported) 06/28/2021 Influenza vaccine high dose age 65 and over 06/16/2019,06/20/2018,06/25/2017,06/07,05/20/2015 Pneumoccoccal(Adult) Polysac charide PPSV23 11/12/2011 Pneumococcal Conjugate PCV-13 03/23/2019 TD (STATE SUPPLIED FOR ADULT S AND CHILDREN) 12/26/2012 Td, Adsorbed, Preservative F ree, Adult Use, Lf Unspecified 12/26/2012 Zostavax 12/08/2013 Family History Relation Name Status Comments Brother 1 Alive history of colo n cancer and prostate CA and CAD Brother 2 Alive polyps Brother 3 Alive UNK Brother 4 Alive UNK Brother 5 Alive UNK Sister 1 Alive UNK Sister 2 Alive UNK Social History Tobacco Use Types Packs/Day Years Used Date Smoking Tobacco: Former Cigarettes 1.5 25 Smokeless Tobacco: Never Comments:quit 20 yrs ago Alcohol Use Standard Drinks/Week Comments No 0 (1 standard drink = 0.6 oz pur e alcohol) very rare Sex Assigned at Date Recorded Not on file Last Filed Vital Signs Vital Sign Reading Time Taken Comments Blood Pressure 148/86 04/17/2022 10:38 AM EDT Pulse 71 10/30/2021 8:28 AM EST Temperature 36.4 C (97.5 F) 10/30/2021 8:28 AM EST Respiratory Rate 16 02/24/2021 1:56 PM EDT Oxygen Saturation - - Inhaled Oxygen Concentration - - Weight 86.4 kg (190 lb 6.4 oz) 10/30/2021 8:28 A M EST Height 175.3 cm (5' 9 ) 10/30/2021 8:28 AM EST Body Mass Index 28.12 10/30/2021 8:28 AM EST Plan of Treatment Health Maintenance Due Date Last Done Comments DTAP/TDAP/TD (1 - Tdap) 12/27/2012 12/26/2012, 12/26 SHINGLES VACCINE (2 of 3) 02/02/2014 12/08/2013 Covid-19 Vaccine (5 - 2022-2 4 season) 2024 07/02/2022, 08/01/2021, 01/28/2021, Additional history exists BMI CHECK/ADVISE 09/02/2024 04/17/2022, (Completed), 09/23/2019, Additional history exists INFLUENZA (#1) 2025 06/28/2021, 06/02, 06/20/2018, Additional history exists CHOLESTEROL SCREENING 02/24/2026 02/24/2021 , 09/23/2019, 03/23/2019, Additional history exists HEPATITIS C SCREENING Completed 11/24/2013 PNEUMOCOCCAL VACCINE Completed 03/23/2019, 11/12/19 12 Care Teams Deputy Sheriff Building Guard Relationship Specialty Start Date End Date Community, Pcp PCP - General Internal Medicine 02/25/23
--- OUTSIDE RECORDS SUMMARY | 2025-04-28 11:59 | XMS_ITS | Encounter Summary ---
Author Organization [facility] Address [address] [place] [address] Care Team Providers Care Single Stayer Operator Name Role Phone Meghan Scott MD Primary Care Provider Dolly Velez MD Primary Care Provider UnavailAnselmo Roman MD Primary Care Provider Unavailable Bernadine Lutz DO Primary Care Provider Unavaila nataliya [facility], Pcp Primary Care Provider Unavailabl e Reason for Visit * Reason Onset Date Comments medication problems 07/20/2019 Encounter Details Date Type Department Care Team Description 07/20/2019 Telephone Medicine/Pediatrics - [address] [phone] Catalina Harrison MD medication problems Social History Tobacco Use Types Packs/Day Years Used Date Smoking Tobacco: Former Cigarettes 1.5 25 Smokeless Tobacco: Former Comments:quit 20 yrs ago Alcohol Use Standard Drinks/Week Comments No 0 (1 standard drink = 0.6 oz pur e alcohol) very rare Sex Assigned at Date Recorded Not on file documented as of this encounter Miscellaneous Notes * Telephone Encounter - Ana Corado L.P.N. - 07/20/2019 9:28 AM EST refaxed * Telephone Encounter - Komal Phillip - 07/20/2019 9:11 AM EST Who is calling? The patient Name of the medication lorazepam (ATIVAN) 1 MG tablet What is the specific problem or interaction? Pharmacy never got request 07/17. Please resend If the patient is having a problem with taking the med - how long has the problem been going on? N/A documented in this encounter Plan of Treatment Not on file documented as of this encounter Visit Diagnoses Not on filedocumented in this encounter Care Teams Single Stayer Operator Relationship Specialty Start Date End Date Meghan Scott MD PCP - General Internal Medicine 10/24/20 12/20/20 Dolly Tatum MD PCP - General Internal Medicine 12/21/20 03/21/21 Anselmo Srivastava MD PCP - General Internal Medicine 03/22/2108/22 Bernadine Lutz DO PCP - General Internal Medicine 08/14/21 02/24/23 [facility], Pcp PCP - General Internal Medicine 02/25/23 documented as of this encounter
--- OUTSIDE RECORDS SUMMARY | 2025-04-28 11:59 | XMS_ITS | Encounter Summary ---
Author Organization [facility] Address [address] [place] [address] Care Team Providers Care Turpentine Distiller Name Role Phone Anselmo Srivastava MD Primary Care Provider Unavailable Bernadine Lutz DO [facility] Provider Unavailabl e Reason for Visit * Reason Onset Date Comments refill request 07/13/2021 Encounter Details Date Type Department Care Team Description 07/13/2021 Refill Adult Medicine - [address] [address] Anselmo Srivastava MD refill request Social History Tobacco Use Types Packs/Day Years Used Date Smoking Tobacco: Former Cigarettes 1.5 25 Smokeless Tobacco: Never Comments:quit 20 yrs ago Alcohol Use Standard Drinks/Week Comments No 0 (1 standard drink = 0.6 oz pur e alcohol) very rare Sex Assigned at Date Recorded Not on file documented as of this encounter Miscellaneous Notes * Telephone Encounter - Josey Franco - 07/13/2021 8:51 AM EST Patient would like script to be: E-PRESCRIBED/FAXED TO PHARMACY WHEN WAS THE PATIENT'S LAST APPOINTMENT IN ADULT MEDICINE? 02/24/21 WHEN WAS THE LAST TIME THE PATIENT SAW THEIR PCP? New to pcp Does patient have an upcoming appointment? Yes 07/20/2021 (THE MEDICATION REQUESTED IS ON THE MED LIST ABOVE) All of the medications requested were on the CURRENT MEDS list Did you check the Pharmacy information above?: YES Patient wants: 90 -day supply Is this a mail order prescription request ? NO If the refill is from a FAXED refill request what is the RX # listed on the fax? N/A Patients current insurance carrier is: Payor: [employer] PLAN / [id number] /Product Type: POS [id number] documented in this encounter Plan of Treatment Not on file documented as of this encounter Visit Diagnoses Not on filedocumented in this encounter Care Teams Turpentine Distiller Relationship Specialty Start Date End Date Anselmo Srivastava MD PCP - General Internal Medicine 03/22/2108/22 Bernadine Lutz DO PCP - General Internal Medicine 08/14/21 02/24/23 [facility] PCP - General Internal Medicine 02/25/23 documented as of this encounter
--- OUTSIDE RECORDS SUMMARY | 2025-04-28 11:59 | XMS_ITS | Encounter Summary ---
Author Organization [facility] Address [address] [place] [address] Care Team Providers Care Division Order Analyst Name Role Phone Name, Elvis ARITA Primary Care Provider UnavailMeghan Bautista MD Primary Care Provider Dolly Velez MD Primary Care Provider UnavailAnselmo Roman MD Primary Care Provider Bernadine Mathur DO Primary Care Provider Unavaila nataliya [facility], Pcp Primary Care Provider Unavailabl e Reason for Visit * Reason Onset Date Comments Medication 07/14/2012 Encounter Details Date Type Department Care Team Description 07/14/2012 Telephone General Surgery [address] [place] [address] Ludwig Massey MD [address] [place] [address] Medication Social History Tobacco Use Types Packs/Day Years Used Date Smoking Tobacco: Former Cigarettes 1 25 Smokeless Tobacco: Never Comments:quit 20 yrs ago Alcohol Use Standard Drinks/Week Comments No 0 (1 standard drink = 0.6 oz pur e alcohol) Sex Assigned at Date Recorded Not on file documented as of this encounter Miscellaneous Notes * Telephone Encounter - Josey Garber C.M.A. - 07/14/2012 3:42 PM EST Please review. * Telephone Encounter - Chula Fontaine - 07/14/2012 2:09 PM EST Patient was prescribed percocet at hospital. They gave him 2. He would like more just in case. He was prescribed something else and there might be a reaction. Please call patient. Patient has a post op tomorrow with Dr. Massey. documented in this encounter Plan of Treatment Not on file documented as of this encounter Visit Diagnoses Not on filedocumented in this encounter Care Teams Division Order Analyst Relationship Specialty Start Date End Date Name, MD Elvis PCP - General Internal Medicine 09/06/11 07/24/15 Meghan Scott MD PCP - General Internal Medicine 10/24/20 12/20/20 Dolly Tatum MD PCP - General Internal Medicine 12/21/20 03/21/21 Anselmo Srivastava MD PCP - General Internal Medicine 03/22/2108/22 Bernadine Lutz DO PCP - General Internal Medicine 08/14/21 02/24/23 [facility], Pcp PCP - General Internal Medicine 02/25/23 documented as of this encounter
--- OUTSIDE RECORDS SUMMARY | 2025-04-28 11:59 | XMS_ITS | Encounter Summary ---
Author Organization [facility] Address [address] [place] [address] Care Team Providers Care Load Tester Name Role Phone Meghan Scott MD Primary Care Provider Unava Dolly Fu MD Primary Care Provider UnavailAnselmo Roman MD Primary Care Provider Unavailable Bernadine Lutz DO Primary Care Provider Unavaila nataliya [facility], Pcp [facility] Encounter Details Date Type Department Care Team Description 09/12/2015 Controlled Substance Plan Medical Records [address] [place] [id number] Abstract, Provider Social History Tobacco Use Types Packs/Day Years Used Date Smoking Tobacco: Former Cigarettes 1 25 Smokeless Tobacco: Former Comments:quit 20 yrs ago Alcohol Use Standard Drinks/Week Comments No 0 (1 standard drink = 0.6 oz pur e alcohol) Sex Assigned at Date Recorded Not on file documented as of this encounter Plan of Treatment Not on file documented as of this encounter Visit Diagnoses Not on filedocumented in this encounter Care Teams Load Tester Relationship Specialty Start Date End Date Meghan Scott MD PCP - General Internal Medicine 10/24/20 12/20/20 Dolly Tatum MD PCP - General Internal Medicine 12/21/20 03/21/21 Anselmo Srivastava MD PCP - General Internal Medicine 03/22/2108/22 Bernadine Lutz DO PCP - General Internal Medicine 08/14/21 02/24/23 [facility], Pcp PCP - General Internal Medicine 02/25/23 documented as of this encounter
--- OUTSIDE RECORDS SUMMARY | 2025-04-28 11:59 | XMS_ITS | Encounter Summary ---
Author Organization [facility] Address [address] [place] [address] Care Team Providers Care Door Glass Installer Name Role Phone Name, Elvis ARITA Primary Care Provider Meghan Grant MD Primary Care Provider Dolly Velez MD Primary Care Provider Anselmo Kay MD Primary Care Provider Unavailable Bernadine Lutz DO Primary Care Provider Unavaila nataliya [facility], Pcp Primary Care Provider Jennie richmond Encounter Details Date Type Department Care Team Description 07/14/2012 [facility] [address] [place] [address] Ludwig Massey MD [address] [place] [id number] Social History Tobacco Use Types Packs/Day Years [...] on filedocumented in this encounter Care Teams Door Glass Installer Relationship Specialty Start Date End Date Name, MD Elvis PCP - General Internal Medicine 09/06/11 07/24/15 Meghan Scott MD PCP - General Internal Medicine 10/24/20 12/20/20 Dolly Tatum MD PCP - General Internal Medicine 12/21/20 03/21/21 Anselmo Srivastava MD PCP - General Internal Medicine 03/22/2108/22 Bernadine Lutz DO PCP - General Internal Medicine 08/14/21 02/24/23 [facility], Pcp PCP - General Internal Medicine 02/25/23 documented as of this encounter
--- OUTSIDE RECORDS SUMMARY | 2025-04-28 11:59 | XMS_ITS | Encounter Summary ---
Author Organization [facility] Address [address] [place] [address] Care Team Providers Care Passenger Conductor Name Role Phone Meghan Scott MD Primary Care Provider Unava Dolly Fu MD Primary Care Provider UnavailAnselmo Roman MD Primary Care Provider Unavailable Bernadine Lutz DO Primary Care Provider Unavaila nataliya [facility], Pcp [facility] Encounter Details Date Type Department Care Team Description 10/25/2016 Release of Information Medical Records [address] [place] [id number] Abstract, Provider Social History Tobacco Use Types [...] on filedocumented in this encounter Care Teams Passenger Conductor Relationship Specialty Start Date End Date Meghan Scott MD PCP - General Internal Medicine 10/24/20 12/20/20 Dolly Tatum MD PCP - General Internal Medicine 12/21/20 03/21/21 Anselmo Srivastava MD PCP - General Internal Medicine 03/22/2108/22 Bernadine Lutz DO PCP - General Internal Medicine 08/14/21 02/24/23 [facility], Pcp PCP - General Internal Medicine 02/25/23 documented as of this encounter
--- OUTSIDE RECORDS SUMMARY | 2025-04-28 11:59 | XMS_ITS | Encounter Summary ---
Author Organization [facility] Address [address] [place] [address] Care Team Providers Care Smog Technician Name Role Phone Meghan Scott MD Primary Care Provider Unava Dolly Fu MD Primary Care Provider UnavailAnselmo Roman MD Primary Care Provider Unavailable Bernadine Lutz DO Primary Care Provider Unavaila nataliya [facility], Pcp [facility] Encounter Details Date Type Department Care Team Description 03/31/2019 [facility] Medical Records [address] [place] [id number] Abstract, Provider Social History Tobacco Use Types [...] on filedocumented in this encounter Care Teams Smog Technician Relationship Specialty Start Date End Date Meghan Scott MD PCP - General Internal Medicine 10/24/20 12/20/20 Dolly Tatum MD PCP - General Internal Medicine 12/21/20 03/21/21 Anselmo Srivastava MD PCP - General Internal Medicine 03/22/2108/22 Bernadine Lutz DO PCP - General Internal Medicine 08/14/21 02/24/23 [facility], Pcp PCP - General Internal Medicine 02/25/23 documented as of this encounter
--- OUTSIDE RECORDS SUMMARY | 2025-04-28 11:59 | XMS_ITS | Encounter Summary ---
Author Organization [facility] Address [address] [place] [address] Care Team Providers Care Manager Underwriting Name Role Phone Bernadine Lutz DO Primary Care Provider Willie an [facility], Pcp Primary Care Provider Unavailmiguel e Encounter Details Date Type Department Care Team Description 11/30/2021 [facility] Medical Records [address] [place] [address] Abstract, Provider Social History Tobacco Use Types [...] on filedocumented in this encounter Care Teams Manager Underwriting Relationship Specialty Start Date End Date Bernadine Lutz DO PCP - General Internal Medicine 08/14/21 02/24/23 [facility]cp PCP - General Internal Medicine 02/25/23 documented as of this encounter
--- OUTSIDE RECORDS SUMMARY | 2025-04-28 11:59 | XMS_ITS | Encounter Summary ---
Author Organization [facility] Address [address] [place] [address] Care Team Providers Care Dental Assistant Instructor Name Role Phone nAselmo Srivastava MD Primary Care Provider Unavailable Bernadine Lutz DO Primary Care Provider Unavaila [facility], Pcp Primary Care Provider Unavailmiguel richmond Encounter Details Date Type Department Care Team Description 07/07/2021 [facility] Medical Records [address] [place] [id number] Abstract, Provider Social History Tobacco Use Types [...] on filedocumented in this encounter Care Teams Dental Assistant Instructor Relationship Specialty Start Date End Date Anselmo Srivastava MD PCP - General Internal Medicine 03/22/2108/22 Bernadine Lutz DO PCP - General Internal Medicine 08/14/21 02/24/23 [facility], Pcp PCP - General Internal Medicine 02/25/23 documented as of this encounter
--- OUTSIDE RECORDS SUMMARY | 2025-04-28 11:59 | XMS_ITS | Encounter Summary ---
Author Organization [facility] Address [address] [place] [address] Care Team Providers Care Supply Aide Name Role Phone Meghan Scott MD Primary Care Provider Unava Dolly Fu MD Primary Care Provider UnavailAnselmo Roman MD Primary Care Provider Unavailable Bernadine Lutz DO Primary Care Provider Unavaila nataliya [facility], Pcp Primary Care Provider [facility] Encounter Details Date Type Department Care Team Description 09/21/2015 PLUMBING MANAGER/[facility] Report Medical Records [address] [place] [id number] Abstract, Provider Social History Tobacco Use Types [...] on filedocumented in this encounter Care Teams Supply Aide Relationship Specialty Start Date End Date Meghan Scott MD PCP - General Internal Medicine 10/24/20 12/20/20 Dolly Tatum MD PCP - General Internal Medicine 12/21/20 03/21/21 Anselmo Srivastava MD PCP - General Internal Medicine 03/22/2108/22 Bernadine Lutz DO PCP - General Internal Medicine 08/14/21 02/24/23 [facility], Pcp PCP - General Internal Medicine 02/25/23 documented as of this encounter
--- OUTSIDE RECORDS SUMMARY | 2025-04-28 11:59 | XMS_ITS | Encounter Summary ---
Author Organization [facility] Address [address] [place] [address] Care Team Providers Care Rack Worker Name Role Phone Meghan Scott MD Primary Care Provider Dolly Velez MD Primary Care Provider UnavailAnselmo Roman MD Primary Care Provider Unavailable Bernadine Lutz DO Primary Care Provider Unavaila nataliya [facility], Pcp Primary Care Provider Unavailabl e Reason for Visit * Reason Onset Date Comments refill request 12/19/2018 Encounter Details Date Type Department Care Team Description 12/19/2018 Refill Medicine/Pediatrics - [address] [phone] Catalina Harrison MD refill request Social History Tobacco Use Types Packs/Day Years Used Date Smoking Tobacco: Former Cigarettes 1.5 25 Smokeless Tobacco: Former Comments:quit 20 yrs ago Alcohol Use Standard Drinks/Week Comments No 0 (1 standard drink = 0.6 oz pur e alcohol) very rare Sex Assigned at Date Recorded Not on file documented as of this encounter Miscellaneous Notes * Telephone Encounter - Nata Capellan M.A. - 12/19/2018 3:20 PM EDT Script faxed [facility] [facility] vf * Telephone Encounter - Chula Rojas R.N. - 12/19/2018 10:32 AM EDT Last refill:11/19/18 Lab Results Component Value Date URINEOXYCOD NEGATIVE 09/08/2018 URBENZO NEGATIVE 09/08/2018 URAMPHETAMIN NEGATIVE 09/08/2018 URMARIJUANA NEGATIVE 09/08/2018 UROPIATES NEGATIVE 09/08/2018 URBARBITUATE NEGATIVE 09/08/2018 URCOCAINE NEGATIVE 09/08/2018 HYDROCODONE Negative 08/30/2016 Controlled substance contract and last issue date of medication reviewed. Patient is due for medication. * Telephone Encounter - Adamaris Amarilis - 12/19/2018 10:27 AM EDT [facility] Patient would like script to be: E-PRESCRIBED/FAXED TO PHARMACY WHEN WAS THE PATIENT'S LAST APPOINTMENT IN ADULT MEDICINE? 09-08-18 WHEN WAS THE LAST TIME THE PATIENT SAW THEIR PCP? 09-04-17 Does patient have an upcoming appointment? Yes 03-23-19 (THE MEDICATION REQUESTED IS ON THE MED LIST ABOVE) All of the medications requested were on the CURRENT MEDS list Did you check the Pharmacy information above?: YES Patient wants: 30 -day supply Is this a mail order prescription request ? NO If the refill is from a FAXED refill request what is the RX # listed on the fax? N/A Patients current insurance carrier is: Payor: [facility] [employer] / Plan: [id number] /Product Type: POS [id number] documented in this encounter Plan of Treatment Not on file documented as of this encounter Visit Diagnoses Diagnosis Anxiety Anxiety state, unspecified documented in this encounter Care Teams Rack Worker Relationship Specialty Start Date End Date Meghan Scott MD PCP - General Internal Medicine 10/24/20 12/20/20 Dolly Tatum MD PCP - General Internal Medicine 12/21/20 03/21/21 Anselmo Srivastava MD PCP - General Internal Medicine 03/22/2108/22 Bernadine Lutz DO PCP - General Internal Medicine 08/14/21 02/24/23 [facility], Pcp PCP - General Internal Medicine 02/25/23 documented as of this encounter
--- OUTSIDE RECORDS SUMMARY | 2025-04-28 11:59 | XMS_ITS | Encounter Summary ---
Author Organization [facility] Address [address] [place] [address] Care Team Providers Care Manager Merchandising Name Role Phone Name, Elvis ARITA Primary Care Provider UnavailMeghan Bautista MD Primary Care Provider Dolly Velez MD Primary Care Provider Anselmo Kay MD Primary Care Provider Bernadine Mathur DO Primary Care Provider Unavaila [facility], Pcp Primary Care Provider Unavailabl e Encounter Details Date Type Department Care Team Description 10/14/2014 Hereditary Cancer Qu iz Results Medical Records [address] [place] [address] Abstract, Provider Social History Tobacco Use Types [...] filedocumented in this encounter Care Teams Manager Merchandising Relationship Specialty Start Date End Date Name, MD Elvis PCP - General Internal Medicine 09/06/11 07/24/15 Meghan Scott MD PCP - General Internal Medicine 10/24/20 12/20/20 Dolly Tatum MD PCP - General Internal Medicine 12/21/20 03/21/21 Anselmo Srivastava MD PCP - General Internal Medicine 03/22/2108/22 Bernadine Lutz DO PCP - General Internal Medicine 08/14/21 02/24/23 Counts Include [address] [facility], Pcp PCP - General Internal Medicine 02/25/23 documented as of this encounter
--- OUTSIDE RECORDS SUMMARY | 2025-04-28 11:59 | XMS_ITS | Encounter Summary ---
Author Organization [facility] Address [address] [place] [address] Care Team Providers Care Community Development Director Name Role Phone Dolly Tatum MD Primary Care Provider Anselmo Kay MD Primary Care Provider Unavailable Bernadine Lutz DO Primary Care Provider Unavailjoe an [facility] Pcp Primary Care Provider Unavailabl e Reason for Visit * Reason Comments E-prescribe Rx Request Encounter Details Date Type Department Care Team Description 12/23/2020 Refill Adult Medicine [address] [address] Leny Grossman MD E-prescribe Rx Request Social History Tobacco Use Types Packs/Day Years Used Date Smoking Tobacco: Former Cigarettes 1.5 25 Smokeless Tobacco: Former Comments:quit 20 yrs ago Alcohol Use Standard Drinks/Week Comments No 0 (1 standard drink = 0.6 oz pur e alcohol) very rare Sex Assigned at Date Recorded Not on file documented as of this encounter Miscellaneous Notes * Telephone Encounter - Elida Cadena M.A. - 12/23/2020 11:01 AM EDT Script re faxed, pt notified. * Telephone Encounter - Gloria Taylor M.A. - 12/23/2020 10:48 AM EDT This was not done in [place] He needs to contact the [place] office I called the pt, he has been back and fourth with this, was told this was faxed and the pharmacy has not received this Pt is out of medication He said he called over to [place] and spoke to someone as well. Pharmacy states they have not received any faxes for the medication * Telephone Encounter - Elida Sutherland - 12/23/2020 10:26 AM EDT Pt called and states he is out of this prescription. He would like them filled BERRY. He said he will call back in a couple of hours for an update. He said he hasn't established care with his new PCP yet but has appt with her on 02/24/21. * Telephone Encounter - Gloria Taylor M.A. - 12/23/2020 10:17 AM EDT Rx was done 12/21/20 by Leny Grossman MD Not in [place] office, routing to [place] * Telephone Encounter - Komal Elias - 12/23/2020 10:15 AM EDT Sent to [facility]. Forwarded to [place] * Telephone Encounter - Komal Elias - 12/23/2020 10:14 AM EDT This is a duplicate, please see refill request from yesterday 12/22. Pharmacy has yet to receive. documented in this encounter Plan of Treatment Not on file documented as of this encounter Visit Diagnoses Diagnosis Anxiety Anxiety state, unspecified documented in this encounter Care Teams Community Development Director Relationship Specialty Start Date End Date Dolly Tatum MD PCP - General Internal Medicine 12/21/20 03/21/21 Anselmo Srivastava MD PCP - General Internal Medicine 03/22/2108/22 Bernadine Lutz DO PCP - General Internal Medicine 08/14/21 02/24/23 [facility], Pcp PCP - General Internal Medicine 02/25/23 documented as of this encounter
== END 2025-04-28 11:44 | disposition home or self-care (01) ==
LOC: HO.HUSH 11:04
PROVIDERS: PCP Internal Medicine; Visit Provider Nurse Practitioner Family
DX: R97.20 Elevated prostate specific antigen [PSA] (principal); R35.1 Nocturia; N40.0 Benign prostatic hyperplasia without lower urinary tract symptoms; R35.0 Frequency of micturition; Z13.9 Encounter for screening, unspecified
CPT/HCPCS: 99213

== ENCOUNTER → 2025-04-28 11:03 | Outpatient (BNVA) | payer OTHER, SELFPAY | PROVIDERS: PCP Internal Medicine; Visit Provider Nurse Practitioner Family | DX: R97.20 Elevated prostate specific antigen [PSA] (principal); N40.0 Benign prostatic hyperplasia without lower urinary tract symptoms; R35.1 Nocturia; R35.0 Frequency of micturition; Z13.9 Encounter for screening, unspecified | CPT/HCPCS: 51798; 81003; 99212 ==

== ENCOUNTER → 2025-04-30 09:05 | Outpatient (AMB) | payer OTHER, SELFPAY ==
--- NOTE | 2025-04-30 09:09 | A.OFFPC_ITS ---
Vital Signs 04/30/25 09:14 Height 5 ft 7 in Weight 188 lb BMI 29.4 BP 170/85 H Blood Pressure Location Lt brachial Position Sitting Respiration 20 Pulse 87 Pulse Source Pulse Oximeter Temp 98.3 F Temp Source Temporal Artery Scan Pulse Oximetry (%) 98 Oxygen Delivery Method Room Air Intake Visit Reasons: routine Small Electric Engine Technician Required: No Accompanied by: Self / Same As Patient Allergies codeine Allergy (Verified 04/30/25 09:09) Fainting Tobacco use date assessed: 01/28/25 Fall risk assessment: No Falls in past year Last assessed Fall Risk: 04/30/25 Dental Screening Dental Screen Date: 01/28/25 HPI HPI Comments History of Present Illness Details The patient is a 79-year-old male presenting with symptoms of an upper respiratory infection and for regular health management. He reports the onset of symptoms two days after returning from a trip to [facility], experiencing a fever initially of 100.7?F, which resolved to 98.6?F by today?s visit. He describes productive coughing with brown and green phlegm, suggesting possible underlying inflammatory or infectious respiratory conditions. He reports associated symptoms of sinus pain and wheezing, with a known history of Chronic Obstructive Pulmonary Disease (COPD). The patient denies any recent increase in typical respiratory symptoms associated with his known respiratory illness, prior history of a bad cold a month and a half ago treated with antibiotics, and recalls a past diagnostic assessment suggesting normal cardiac function amid concerns of a small blockage in the coronary system. He mentions his blood pressure is typically managed with medication but is currently elevated, likely due to a missed dose today. The patient recounts experiencing persistent issues with constipation alongside his general medication regimen, likely attributed to lifestyle changes since long-term affecting functional bowel habits. 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 [employer] - Reports lifestyle changes affecting alivia wel habits since retiring from active work - Discussed past occupational exposures and potential impact on current health status [facility] Medical History (Updated 04/30/25 @ 09:41 by Chicho Mcmanus MD) Upper respiratory disease Hyperlipidemia HTN (hypertension) Generalized anxiety disorder Allergic rhinitis due to pollen Benign prostatic hyperplasia without lower urinary tract symptoms Persons encountering health services in other specified circumstances Pure hypercholesterolemia, unspecified Gastro-esophageal reflux disease without esophagitis Essential (primary) hypertension Acute cough Wheezing Overweight Elevated prostate specific antigen [PSA] Surgical History Hx of surgical biopsy Family History Father No problems noted. Mother CAD (coronary artery disease) Social History Housing: House Patient Tobacco Use Status: Former Tobacco user Tobacco use type: Cigarette e-Cigarette/Vaping Use: Former Use service: No Current occupational status: retired Cognitive needs: No Hearing needs: Yes (bilateral hearing aids) Vision needs: Yes (rx glasses) Questionnaire Thrive Questionnaire Date Thrive assessed: 01/28/25 AUDIT C Alcohol Use Questionnaire (AUDIT-C) 1. How often do you have a drink containing alcohol?: Monthly or less 2. How many drinks containing alcohol do you have on a typical day when you are drinking?: 1 or 2 Total Score: 1 ELAINA-7 AMB Questionnaire ELAINA-7 Date ELAINA - 7 assessed: 04/30/25 Feeling nervous, anxious, or on edge: 0 = Not at all Not being able to stop or control worryin = Not at all Worrying too much about different things: 0 = Not at all Trouble relaxin = Not at all Being so restless that it is hard to sit still: 0 = Not at all Becoming easily annoyed or irritable: 0 = Not at all Feeling afraid as if something awful might happen: 0 = Not at all Total ELAINA-7 score (0-4 normal; 5-9 mild; 10-14 moderate; 15-21 severe): 0 Source: Developed by Drs. Sonny Haines, Judy Yoo, Jose R Hercules and colleagues, with an educational jenifer from [employer] [place]. ELAINA-7 Assessment Billing ELAINA-7 Assessment Tool: ELAINA-7 Assessment 36383 Review of Systems Const Details: - Respiratory: Reports productive cough with brown and green phlegm, wheezing - Constitutional: Reports fever, now resolved - Eyes: Reports sinus pain - Gastrointestinal: Reports issues with constipation - Genitourinary: No new urinary complaints - Musculoskeletal: Denies any new musculoskeletal pain or weakness - Neurological: Denies neurological symptoms - Skin: Reports development of new skin elam Physical exam (Primary Care) Vital Signs: Last Vital Signs Temp 98.3 F 04/30/25 09:14 Pulse 87 04/30/25 09:14 Resp 20 04/30/25 09:14 BP 170/85 H 04/30/25 09:14 Pulse Ox 98 04/30/25 09:14 Oxygen Delivery Method Room Air 04/30/25 09:14 BMI result Body Mass Index 29.4 Tobacco/Smoking Status: Tobacco use Status Tobacco use date assessed 01/28/25 04/30/25 09:11 Patient Tobacco Use Status Former Tobacco user 04/30/25 09:11 Tobacco use type Cigarette 04/30/25 09:16 e-Cigarette/Vaping Use Former Use 04/30/25 09:11 Thrive Assessment: Date of Thrive Assessment Date Thrive assessed 01/28/25 04/30/25 09:11 Const Other: General: +Alert and oriented, Well nourished, No acute distress. Eye: Pupils are equal, round and reactive to light, Intact accommodation, Extraocular movements are intact, Normal conjunctiva, Vision unchanged, Reports eye discomfort similar to sinus pain. HENT: Normocephalic, Atraumatic, Tympanic membranes are clear, Normal hearing, Oral mucosa is moist, No pharyngeal erythema, Ear canals patent. Respiratory: Lungs CTA bilaterally, No wheeze, Respirations are non-labored, Reports coughing up brown and green phlegm. Cardiovascular: Regular rate, Regular rhythm, S1 auscultated, S2 auscultated, No murmur, Good pulses equal in all extremities, Normal peripheral perfusion, No edema, Blood pressure recorded at 170/85. Gastrointestinal: Soft, Non-tender, Non-distended, Normal bowel sounds, No organomegaly, Reports difficulty with bowel movements. Musculoskeletal: Normal range of motion, Normal strength, No tenderness, No swelling, No deformity, Normal gait. Integumentary: Warm, Dry, [place], Intact, Noted mole on right arm, advised to see a ingredient specialist. Neurologic: Alert, Oriented, Normal sensory, Normal motor function, No focal defects, Cranial Nerves II-XII are grossly intact, Normal deep tendon reflexes. Psychiatric: Cooperative, Appropriate mood & affect, Normal judgment. Coding Level of Care Code Est Pt Level 4 (14910) Complex EM visit Add On G2211 Diagnoses Upper respiratory disease J39.9 Primary hypertension I10 Hypertension type: primary hypertension CAD (coronary artery disease) I25.10 Hyperlipidemia E78.5 Urinary frequency R35.0 Skin abnormalities L98.9 Additional Codes ELAINA-7 Assessment Billing - ELAINA-7 Assessment Tool: ELAINA-7 Assessment 88059 ([id number]) Assessment & Plan Assessment & Plan (1) Upper respiratory disease: Comment: - The patient presents with symptoms suggesting a viral upper respiratory infection, likely acquired during recent travel. - Advising symptomatic treatment, including warm fluids, tea, and Mucinex to aid mucus expectoration. - Advise observation of symptoms, which may persist for several days and typically resolve without antibiotics unless complications arise. Code(s): J39.9 - Disease of upper respiratory tract, unspecified Category: Medical Plan: Advised to continued symptomatic treatment however if he has worsening symptoms the past few days such as no improvement in symptoms with continued pain med fevers to contact clinic type of antibiotics however if he has worsening shortness of breath or difficulty breathing to present to the emergency room for further management (2) HTN (hypertension): Comment: Home medications are losartan and he reports good adherence to medications. Pressures are elevated in clinic today but he reports missing his medications. At this time I have requested patient to return home and take his home medications because he has no active symptoms of headaches or chest pain however if those are to developed a presented to the ED. have also asked him to keep a record of his pressures and we will re-evaluate at the next clinic visit Code(s): I10 - Essential (primary) hypertension Category: Medical Qualifiers: Hypertension type: primary hypertension Qualified Code(s): I10 - Essential (primary) hypertension Plan: Continue losartan Keep her going to blood pressures and if still elevated we will increase blood pressure medications (3) CAD (coronary artery disease): Comment: Nonobstructive by coronary CTA, June 2024 Code(s): I25.10 - Atherosclerotic heart disease of [place] coronary artery without angina pectoris Category: Medical (4) Hyperlipidemia: Comment: Lipid panel reviewed within normal limits Code(s): E78.5 - Hyperlipidemia, unspecified Category: Medical Plan: Continue simvastatin Repeat lipid panel in 6 months (5) Urinary frequency: Comment: Well managed with finasteride Code(s): R35.0 - Frequency of micturition Category: Medical Plan: Continue finasteride (6) Skin abnormalities: Comment: Diffuse skin discoloration and lesions however patient reports no change in size or shape Code(s): L98.9 - Disorder of the skin and subcutaneous tissue, unspecified Category: Medical Plan: Refer to dermatology Plan Throughout our consultation, I discussed the patient's presentation and symptoms, characteristic of an acute viral respiratory infection, necessitating symptomatic treatment first with conservative measures. We addressed the management of the chronic conditions, including hypertension and COPD. I emphasized the significance of medication adherence in hypertensive management and the addition of iron supplementation to address iron-deficiency anemia. Recommendations included monitoring techniques for at-home blood pressure and continuity of asthma inhaler use in case of exacerbation. Given the patient's distal symptoms and reported skin changes, I suggested dermatological evaluation should symptoms deviate from ordinary presentation. Our extensive discussion emphasized when to seek care emergently, particularly with fever exceeding 103?F or difficulty breathing, considering the rapid developments reported post- travel. Patient Instructions: - Continue warm fluids like teas and [id number]-[id number] Mucinex to help with mucus. - Monitor blood pressure at home; if consistently high, call for an appointment. - Take iron supplements daily to help with iron deficiency anemia. - If signs like the fever worsen or breathing becomes hard, go to the emergency room. - For constipation, increase dietary fiber and consider taking MiraLax. - Keep a record of any new or changing skin moles, and seek dermatological advice if necessary. - Follow up with primary care and results as relevant.
[2025-04-30 09:14] VITALS: BP 170/85; PULSE 87; RESP 20; TEMP 36.8; O2SAT 98; BMI 29.4
--- OUTSIDE RECORDS SUMMARY | 2025-04-30 09:49 | XMS_ITS | Continuity of Care Document ---
Author Name [facility] Organization [facility] Care Team Providers Care Automotive Glass Installer Name Role Phone [facility] Unavailable Unavailable Problems Combined list of problems from Department of [facility] and [facility] facilities. It does not include entries that were removed or entered in error. 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, bilateral Active Diagnosis [facility] [place] [facility] Diagnosis: ICD-10-CM Z46.0 Encounter for fit/adjst of spectacles and contact lenses Active [facility] [place] [facility] Diagnosis: ICD-10-CM H04.123 Dry eye syndrome of bilateral lacrimal glands Active Diagnosis [facility] [place] [facility] Medications Combined list of outpatient medications from Department of [facility] and [facility] facilities.Medications provided include 1) outpatient medications from the last 15 months, and 2) patient-reported medications. Medication Details Route Status Patient Instructions Prescription Expires Prescription Number Last Dispense Date Ordering Provider Order Date Order Qty Source CARBOXYMETH YLCELLULOSE NA 0.5% SOLN,OPH INSTILL 1 DROP INTO EACH EYE FOUR TIMES A DAY FOR DRY EYE OPHTHA LMIC ACTIVE 05/21/2025 [id number] 4 OMAR FAM J 2023 [facility] [place] [facility] Allergies, Adverse Reactions, Alerts Combined list of allergies from Department of [facility] and [facility] facilities. It does not include entries that were removed or entered in error. Substance Category Reaction Severity Reaction type Status Date Reported Comments Source CODEINE Propensity to adverse reactions to drug (finding) Syncope active 4 [facility] [place] [facility] Encounters Combined list of: 1) Encounters from [facility] facilities going backup to the last 18 months, not all ID inpatient encounters are included; 2) Encounters from the Department of [facility] facilities going backup to 280 months. Location Location Details Encounter Type Encounter Number Reason For Visit Attending Provider ADM Date DC Date Status Disposition Source [facility] [place] [place] [id number] Diagnos is: ICD-10- CM H04.123 Dry eye syndrom e of bilater al lacrima l glands KARRI FAM 05/20 [facility] [place] FIT SPECTACLES MULTIFOCAL [id number] Diagnos is: ICD-10- CM Z46.0 Encount er for fit/adj st of spectac les and contact lenses KARRI FAM 05/20 [facility] RPR&REFITG SPECT XCP APHAKIA [id number] Diagnos is: ICD-10- CM Z46.0 Encount er for fit/adj st of spectac les and contact lenses CONNER MORGAN 07/03 [facility] [place] DETERMINE REFRACTIVE STATE [id number] Diagnos is: ICD-10- CM H52.223 Regular astigma herminia catherine al ISAIAH LAY 07/03 [facility] FIT SPECTACLES BIFOCAL [id number] Diagnos is: ICD-10- CM Z46.0 Encount er for fit/adj st of spectac les and contact lenses ISAIAH LAY 07/03 [facility] [place] [facility] Social History Combined list of [...] 05/26/2025 AMBULATORY - MEDICINE AMBULATORY - [facility]IC[facility]
--- OUTSIDE RECORDS SUMMARY | 2025-04-30 09:57 | XMS_ITS | Encounter Summary ---
Author Organization [facility] Address [address] [place] [address] Care Team Providers Care Waterworks Supervisor Name Role Phone Meghan Scott MD Primary Care Provider Unava Dolly Fu MD Primary Care Provider Unavaila Anselmo Powell MD Primary Care Provider Unavailable Bernadine Lutz DO Primary Care Provider Unavaila nataliya [facility], Pcp [facility] Encounter Details Date Type Department Care Team Description 09/10/2018 PNO Controlled Substance Contract Medical Records [address] [place] [id number] Abstract, Provider Social History Tobacco Use Types [...] on filedocumented in this encounter Care Teams Waterworks Supervisor Relationship Specialty Start Date End Date Meghan Scott MD PCP - General Internal Medicine 10/24/20 12/20/20 Dolly Tatum MD PCP - General Internal Medicine 12/21/20 03/21/21 Anselmo Srivastava MD PCP - General Internal Medicine 03/22/2108/22 Bernadine Lutz DO PCP - General Internal Medicine 08/14/21 02/24/23 [facility], Pcp PCP - General Internal Medicine 02/25/23 documented as of this encounter
--- OUTSIDE RECORDS SUMMARY | 2025-04-30 09:57 | XMS_ITS | Encounter Summary ---
Author Organization [facility] Address [address] [place] [address] Care Team Providers Care Merchandise Clerk Name Role Phone Name, Elvis ARITA Primary Care Provider UnavailMeghan Bautista MD Primary Care Provider Dolly Velez MD Primary Care Provider UnavailAnselmo Roman MD Primary Care Provider Bernadine Mathur DO Primary Care Provider Unavaila nataliya [facility], Pcp Primary Care Provider Unavailabl e Reason for Visit * Reason Onset Date Comments refill request 08/04/2012 Encounter Details Date Type Department Care Team Description 08/04/2012 Refill Adult Medicine [address] [address] Name, MD Elvis refill request Social History Tobacco Use Types Packs/Day Years Used Date Smoking Tobacco: Former Cigarettes 1 25 Smokeless Tobacco: Never Comments:quit 20 yrs ago Alcohol Use Standard Drinks/Week Comments No 0 (1 standard drink = 0.6 oz pur e alcohol) Sex Assigned at Date Recorded Not on file documented as of this encounter Miscellaneous Notes * Telephone Encounter - Ana Singh M.A. - 08/05/2012 10:01 AM EST Pt will have to call back tomorrow * Telephone Encounter - Arlin Wheeler M.A. - 08/04/2012 3:16 PM EST Pt not due until 08/06/12 * Telephone Encounter - Lulu López - 08/04/2012 2:32 PM EST WHEN WAS THE PATIENT'S LAST APPOINTMENT IN ADULT MEDICINE? 06/23/12 WHEN WAS THE LAST TIME THE PATIENT SAW THEIR PCP? Same as above Does patient have an upcoming appointment? Yes 12/26/12 (THE MEDICATION REQUESTED IS ON THE MED LIST ABOVE) All of the medications requested were on the CURRENT MEDS list Did you check the Pharmacy information above?: YES Patient wants: 30 -day supply Is this a mail order prescription request ? NO Indicate how soon the patient needs the script: BY THE END OF THE DAY Patient would like script to be: E-PRESCRIBED/FAXED TO PHARMACY If the patients Provider is not in tell the patient that the covering provider will get the request. Patients current insurance carrier is: Payor: [employer] [id number] Product Type: POS [id number] documented in this encounter Plan of Treatment Not on file documented as of this encounter Visit Diagnoses Not on filedocumented in this encounter Care Teams Merchandise Clerk Relationship Specialty Start Date End Date Name, MD Elvis PCP - General Internal Medicine 09/06/11 07/24/15 Meghan Scott MD PCP - General Internal Medicine 10/24/20 12/20/20 Dolly Tatum MD PCP - General Internal Medicine 12/21/20 03/21/21 Anselmo Srivastava MD PCP - General Internal Medicine 03/22/2108/22 Bernadine Lutz DO PCP - General Internal Medicine 08/14/21 02/24/23 [facility], Pcp PCP - General Internal Medicine 02/25/23 documented as of this encounter
--- OUTSIDE RECORDS SUMMARY | 2025-04-30 09:57 | XMS_ITS | Encounter Summary ---
Author Organization [facility] Address [address] [place] [address] Care Team Providers Care Woodwind Instruments Inspector Name Role Phone Meghan Scott MD Primary Care Provider Unava Dolly Fu MD Primary Care Provider UnavailAnselmo Roman MD Primary Care Provider Unavailable Bernadine Lutz DO Primary Care Provider Unavaila nataliya [facility], Pcp Primary Care Provider [facility] Encounter Details Date Type Department Care Team Description 10/25/2016 Release of Information Medical Records [address] [place] [id number] Abstract, Provider Social History Tobacco Use Types [...] on filedocumented in this encounter Care Teams Woodwind Instruments Inspector Relationship Specialty Start Date End Date Meghan Scott MD PCP - General Internal Medicine 10/24/20 12/20/20 Dolly Tatum MD PCP - General Internal Medicine 12/21/20 03/21/21 Anselmo Srivastava MD PCP - General Internal Medicine 03/22/2108/22 Bernadine Lutz DO PCP - General Internal Medicine 08/14/21 02/24/23 [facility], Pcp PCP - General Internal Medicine 02/25/23 documented as of this encounter
--- OUTSIDE RECORDS SUMMARY | 2025-04-30 09:57 | XMS_ITS | Clinical Summary ---
Author Organization [facility] Address [address] [place] [address] Care Team Providers Care Farmworker Egg Producing Farm Name Role Phone Community, Pcp Primary Care Provider Unavailabl e Allergies Active Allergy Reactions Severity Noted Date Comments Codeine-Guaifenesin OTHER 11/12/2011 Passed out cold Medications Medication Sig Dispensed Refills Start Date End Date Status Amanda-3 Fatty Acids (FISH OIL) 1000 MG CPDR [...] VACCINE Completed 03/23/2019, 11/12/19 12 Care Teams Farmworker [employer] Relationship Specialty Start Date End Date Community, Pcp PCP - General Internal Medicine 02/25/23
--- OUTSIDE RECORDS SUMMARY | 2025-04-30 09:57 | XMS_ITS | Encounter Summary ---
Author Organization [facility] Address [address] [place] [address] Care Team Providers Care Senior Ui Developer Name Role Phone Bernadine Lutz DO Primary Care Provider Unavaila [facility], Pcp Primary Care Provider Unavailabl e Reason for Referral * EXTERNAL (Routine) - Authorized/Booked Specialty Diagnoses / Procedures Referred By Contact Referred To Contact Otolaryngology / EarNoseThroat Procedures REFERRAL TO EAR, NOSE & THROAT Monica Jara PA-C [address] [place] [id number] Alexandre Sexton [address] [place] [address] [address] [place] [address] Referral ID Status Reason Start Date Expiration Date V isits Requested Visits Authorized [id number] Authorized/B ooked 05/17/2022 08/20/2022 6 6 Reason for Visit * Reason Onset Date Comments REFERRAL 05/15/2022 Encounter Details Date Type Department Care Team Description 05/15/2022 Telephone Adult Medicine [address] [address] Bernadine Lutz DO REFERRAL Social History Tobacco Use Types Packs/Day Years Used Date Smoking Tobacco: Former Cigarettes 1.5 25 Smokeless Tobacco: Never Comments:quit 20 yrs ago Alcohol Use Standard Drinks/Week Comments No 0 (1 standard drink = 0.6 oz pur e alcohol) very rare Sex Assigned at Date Recorded Not on file COVID-19 Exposure Response Date Recorded In the last 10 days, have yo u been in contact with someone who was confirmed or suspected to have Coronavirus/COVID-19? No / Unsure 04/17/2022 10:04 AM EDT documented as of this encounter Miscellaneous Notes * Telephone Encounter - Harmony Arndt CMA - 05/18/2022 9:21 AM EDT Spoke with patient regarding message below * Telephone Encounter - Glendy Don - 05/15/2022 8:35 AM EDT What insurance does the patient have today? [place] Family Effective 06/02/09: BCBS will not retro referral requests over 90 days. If request is for this please instruct patient to call the 800# on their insurance card to appeal. Do not submit a request. Referrals cannot be processed if the insurance is not accurate. If the insurance listed above in red is NO BILLING INFORMATION FOUND FOR THIS ENCOUTNER The patients correct insurance must be obtained and registered in [facility] or their referral can not be processed. Is this a retro request? NO. If yes for what date of service do you need the retro referral? N/A Who is calling to request this referral? pt If the caller is not the patient, what is their name? N/A Ask the patient WHO referred them to this specialty: Patient self referred FIRST and LAST NAME of SPECIALIST PATIENT is seeing: Dr. Chuy Sexton MD What specialty is this? ENT DIAGNOSIS Patient is being seen for (Not a body part or a procedure): Have you seen this SPECIALIST for this PROBLEM/DX before?NO If YES, when: Have you checked REVIEW or the APPT DESK to see if this referral has already been done or has visits left? YES Is this visit:Initial Visit Address of Specialist:[address] [place] [address] [place] [address] Phone # of Specialist: Fax #: (if applicable): Does patient have an appointment scheduled?: YES Date of appointment- (including a retro-request): 06/29/2022 Is this appointment related to: Not MVA, WC or Surgery related documented in this encounter Plan of Treatment Not on file documented as of this encounter Visit Diagnoses Diagnosis Conductive hearing loss of left ear, unspecified hearing status on contralateral side- Primary Sensorineural hearing loss (SNHL), unspecified laterality documented in this encounter Care Teams Senior Ui Developer Relationship Specialty Start Date End Date Bernadine Lutz DO PCP - General Internal Medicine 08/14/21 02/24/23 [facility], Pcp PCP - General Internal Medicine 02/25/23 documented as of this encounter
--- OUTSIDE RECORDS SUMMARY | 2025-04-30 09:57 | XMS_ITS | Encounter Summary ---
Author Organization [facility] Address [address] [place] [address] Care Team Providers Care Grain Scooper Name Role Phone Name, Elvis ARITA Primary Care Provider UnavailMeghan Bautista MD Primary Care Provider Dolly Velez MD Primary Care Provider UnavailAnselmo Roman MD Primary Care Provider Bernadine Mathur DO Primary Care Provider Unavaila nataliya [facility], Pcp Primary Care Provider Unavailabl e Reason for Visit * Reason Onset Date Comments Medication 07/14/2012 Encounter Details Date Type Department Care Team Description 07/14/2012 Telephone General Surgery [address] [place] [address] Ludwig Massey MD [address] [place] [address] Medication Social History Tobacco Use Types Packs/Day [...] on filedocumented in this encounter Care Teams Grain Scooper Relationship Specialty Start Date End Date Name, MD Elvis PCP - General Internal Medicine 09/06/11 07/24/15 Meghan Scott MD PCP - General Internal Medicine 10/24/20 12/20/20 Dolly Tatum MD PCP - General Internal Medicine 12/21/20 03/21/21 Anselmo Srivastava MD PCP - General Internal Medicine 03/22/2108/22 Bernadine Lutz DO PCP - General Internal Medicine 08/14/21 02/24/23 [facility], Pcp PCP - General Internal Medicine 02/25/23 documented as of this encounter
--- OUTSIDE RECORDS SUMMARY | 2025-04-30 09:57 | XMS_ITS | Encounter Summary ---
Author Organization [facility] Address [address] [place] [address] Care Team Providers Care Kindergarten Classroom Teacher Name Role Phone Meghan Scott MD Primary Care Provider Unava Dolly Fu MD Primary Care Provider UnavailAnselmo Roman MD Primary Care Provider Unavailable Bernadine Lutz DO Primary Care Provider Unavaila nataliya [facility], Pcp Primary Care Provider [facility] Encounter Details Date Type Department Care Team Description 03/31/2019 [facility] Medical Records [address] [place] [address] Abstract, Provider Social History Tobacco Use Types [...] on filedocumented in this encounter Care Teams Kindergarten Classroom Teacher Relationship Specialty Start Date End Date Meghan Scott MD PCP - General Internal Medicine 10/24/20 12/20/20 Dolly Tatum MD PCP - General Internal Medicine 12/21/20 03/21/21 Anselmo Srivastava MD PCP - General Internal Medicine 03/22/2108/22 Bernadine Lutz DO PCP - General Internal Medicine 08/14/21 02/24/23 [facility], Pcp PCP - General Internal Medicine 02/25/23 documented as of this encounter
--- OUTSIDE RECORDS SUMMARY | 2025-04-30 09:57 | XMS_ITS | Encounter Summary ---
Author Organization [facility] Address [address] [place] [address] Care Team Providers Care Canvas Shop Laborer Name Role Phone Meghan Scott MD Primary Care Provider Unava Dolly Fu MD Primary Care Provider UnavailAnselmo Roman MD Primary Care Provider Unavailable Bernadine Lutz DO Primary Care Provider Unavaila nataliya [facility], Pcp [facility] Encounter Details Date Type Department Care Team Description 09/21/2015 [facility] Medical Records [address] [place] [id number] Abstract, Provider Social History Tobacco Use Types [...] on filedocumented in this encounter Care Teams Canvas Shop Laborer Relationship Specialty Start Date End Date Meghan Scott MD PCP - General Internal Medicine 10/24/20 12/20/20 Dolly Tatum MD PCP - General Internal Medicine 12/21/20 03/21/21 Anselmo Srivastava MD PCP - General Internal Medicine 03/22/2108/22 Bernadine Lutz DO PCP - General Internal Medicine 08/14/21 02/24/23 [facility], Pcp PCP - General Internal Medicine 02/25/23 documented as of this encounter
--- OUTSIDE RECORDS SUMMARY | 2025-04-30 09:57 | XMS_ITS | Encounter Summary ---
Author Organization [facility] Address [address] [place] [address] Care Team Providers Care Life Sciences Manager Name Role Phone Name, Elvis ARITA Primary Care Provider Meghan Grant MD Primary Care Provider Dolly Velez MD Primary Care Provider Anselmo Kay MD Primary Care Provider Bernadine Mathur DO Primary Care Provider Unavaila [facility], Pcp Primary Care Provider Unavailmiguel richmond Encounter Details Date Type Department Care Team Description 12/10/2013 [facility] Medical Records [address] [place] [address] Abstract, Provider Social History Tobacco Use Types [...] on filedocumented in this encounter Care Teams Life Sciences Manager Relationship Specialty Start Date End Date Name, [...]
--- OUTSIDE RECORDS SUMMARY | 2025-04-30 09:57 | XMS_ITS | Patient Health Record ---
Author Organization [facility] Address [address] [place] [address] Care Team Providers Care Parking Manager Name Role Phone Sonny Dolan Unavailable [phone] Reason For Referral No Information Plan Of Treatment No Information
--- OUTSIDE RECORDS SUMMARY | 2025-04-30 09:57 | XMS_ITS | Encounter Summary ---
Author Organization [facility] Address [address] [place] [address] Care Team Providers Care Land Measurer Name Role Phone Meghan Scott MD Primary Care Provider Unava Dolly Fu MD Primary Care Provider UnavailAnselmo Roman MD Primary Care Provider Unavailable Bernadine Lutz DO Primary Care Provider Unavaila nataliya [facility], Pcp Primary Care [facility] Encounter Details Date Type Department Care Team Description 03/25/2019 [facility] Medical Records [address] [place] [address] Abstract, Provider Social History Tobacco Use Types [...] on filedocumented in this encounter Care Teams Land Measurer Relationship Specialty Start Date End Date Meghan Scott MD PCP - General Internal Medicine 10/24/20 12/20/20 Dolly Tatum MD PCP - General Internal Medicine 12/21/20 03/21/21 Anselmo Srivastava MD PCP - General Internal Medicine 03/22/2108/22 Bernadine Lutz DO PCP - General Internal Medicine 08/14/21 02/24/23 [facility], Pcp PCP - General Internal Medicine 02/25/23 documented as of this encounter
--- OUTSIDE RECORDS SUMMARY | 2025-04-30 09:57 | XMS_ITS | Encounter Summary ---
Author Organization [facility] Address [address] [place] [address] Care Team Providers Care Display Designer Outside Name Role Phone Name, Elvis ARITA Primary Care Provider Meghan Grant MD Primary Care Provider Dolly Velez MD Primary Care Provider Anselmo Kay MD Primary Care Provider Unavailable Bernadine Lutz DO Primary Care Provider Unavaila nataliya [facility], Pcp Primary Care Provider Jennie richmond Encounter Details Date Type Department Care Team Description 07/14/2012 [facility] Medical Records [address] [place] [address] Ludwig Massey MD [address] [place] [address] Social History Tobacco Use Types Packs/Day Years [...] on filedocumented in this encounter Care Teams Display Designer Outside Relationship Specialty Start Date End Date Name, MD Elvis PCP - General Internal Medicine 09/06/11 07/24/15 Meghan Scott MD PCP - General Internal Medicine 10/24/20 12/20/20 Dolly Tatum MD PCP - General Internal Medicine 12/21/20 03/21/21 Anselmo Srivastava MD PCP - General Internal Medicine 03/22/2108/22 Bernadine Lutz DO PCP - General Internal Medicine 08/14/21 02/24/23 [facility], Pcp PCP - General Internal Medicine 02/25/23 documented as of this encounter
--- OUTSIDE RECORDS SUMMARY | 2025-04-30 09:57 | XMS_ITS | Encounter Summary ---
Author Organization [facility] Address [address] [place] [address] Care Team Providers Care Marketing Specialist Name Role Phone Anselmo Srivastava MD Primary Care Provider Unavailable Bernadine Lutz DO Primary Care Provider Unavaila [facility], Pcp Primary Care Provider Unavailmiguel richmond Encounter Details Date Type Department Care Team Description 07/07/2021 [facility] Medical Records [address] [place] [address] Abstract, Provider Social History Tobacco Use Types [...] on filedocumented in this encounter Care Teams Marketing Specialist Relationship Specialty Start Date End Date Anselmo Srivastava MD PCP - General Internal Medicine 03/22/2108/22 Bernadine Lutz DO PCP - General Internal Medicine 08/14/21 02/24/23 [facility], Pcp PCP - General Internal Medicine 02/25/23 documented as of this encounter
--- OUTSIDE RECORDS SUMMARY | 2025-04-30 09:57 | XMS_ITS | Encounter Summary ---
Author Organization [facility] Address [address] [place] [address] Care Team Providers Care Healthcare Manager Name Role Phone Name, Elvis ARITA Primary Care Provider UnavailMeghan Bautista MD Primary Care Provider Dolly Velez MD Primary Care Provider Anselmo Kay MD Primary Care Provider Bernadine Mathur DO Primary Care Provider Unavaila [facility], Pcp Primary Care Provider Unavailabl e Encounter Details Date Type Department Care Team Description 10/14/2014 Hereditary Cancer Qu iz Results Medical Records [address] [place] [address] Abstract, Provider Social History Tobacco Use Types [...] on filedocumented in this encounter Care Teams Healthcare Manager Relationship Specialty Start Date End Date Name, MD Elvis PCP - General Internal Medicine 09/06/11 07/24/15 Meghan Scott MD PCP - General Internal Medicine 10/24/20 12/20/20 Dolly Tatum MD PCP - General Internal Medicine 12/21/20 03/21/21 Anselmo Srivastava MD PCP - General Internal Medicine 03/22/2108/22 Bernadine Lutz DO PCP - General Internal Medicine 08/14/21 02/24/23 [facility], Pcp PCP - General Internal Medicine 02/25/23 documented as of this encounter
--- OUTSIDE RECORDS SUMMARY | 2025-04-30 09:57 | XMS_ITS | Encounter Summary ---
Author Organization [facility] Address [address] [place] [address] Care Team Providers Care Medical Clinic Manager Name Role Phone Bernadine Lutz DO Primary Care Provider Willie an [facility], Pcp Primary Care Provider Unavailmiguel e Encounter Details Date Type Department Care Team Description 11/30/2021 [facility] Medical Records [address] [place] [address] Abstract, Provider Social History Tobacco Use Types [...] on filedocumented in this encounter Care Teams Medical Clinic Manager Relationship Specialty Start Date End Date Bernadine Lutz DO PCP - General Internal Medicine 08/14/21 02/24/23 [facility] Pcp PCP - General Internal Medicine 02/25/23 documented as of this encounter
== END ==
PROVIDERS: PCP Student in an Organized Health Care Education/Training Program; Visit Provider Student in an Organized Health Care Education/Training Program
DX: J39.9 Disease of upper respiratory tract, unspecified (principal); I10 Essential (primary) hypertension; I25.10 Atherosclerotic heart disease of native coronary artery without angina pectoris; E78.5 Hyperlipidemia, unspecified; R35.0 Frequency of micturition; L98.9 Disorder of the skin and subcutaneous tissue, unspecified

== ENCOUNTER → 2025-04-30 09:05 | Outpatient (BNVA) | payer OTHER, SELFPAY | PROVIDERS: PCP Internal Medicine; Visit Provider Student in an Organized Health Care Education/Training Program | DX: J39.9 Disease of upper respiratory tract, unspecified (principal); I10 Essential (primary) hypertension; I25.10 Atherosclerotic heart disease of native coronary artery without angina pectoris; R35.0 Frequency of micturition; L98.9 Disorder of the skin and subcutaneous tissue, unspecified; E78.00 Pure hypercholesterolemia, unspecified; J44.9 Chronic obstructive pulmonary disease, unspecified; K21.9 Gastro-esophageal reflux disease without esophagitis; D50.9 Iron deficiency anemia, unspecified; Z79.899 Other long term (current) drug therapy; Z13.39 Encounter for screening examination for other mental health and behavioral disorders | CPT/HCPCS: 96127; 99212 ==

== ENCOUNTER 2025-05-07 12:03 | Outpatient (REF) | payer OTHER, SELFPAY ==
[2025-05-08 09:42] LABS: Chlamydia pneumoniae PCR Not Detected (Not Detect.); Coronavirus 229E PCR Not Detected (Not Detect.); Coronavirus HKU1 PCR Not Detected (Not Detect.); Coronavirus NL63 PCR Not Detected (Not Detect.); Coronavirus OC43 PCR Not Detected (Not Detect.); Influenza A H1-2009 PCR Detected (Not Detect.); RSV PCR Not Detected (Not Detect.); Rhino/Enterovirus PCR Not Detected (Not Detect.)
[2025-05-08 09:51] LABS: Influenza A H1 PCR Not Detected (Not Detect.); Influenza A H3 PCR Not Detected (Not Detect.); SARS-CoV-2 PCR Not Detected (Not Detect.)
== END 2025-05-07 12:04 | disposition home or self-care (01) ==
LOC: HO.LAB 12:03
PROVIDERS: Physician Assistant; PCP Student in an Organized Health Care Education/Training Program
DX: R06.2 Wheezing (principal); J22 Unspecified acute lower respiratory infection; R05.9 Cough, unspecified
CPT/HCPCS: 87633; 99212

== ENCOUNTER 2025-05-07 12:03 | Outpatient (AMB) | payer OTHER, SELFPAY ==
[2025-05-07 12:11] VITALS: BP 144/78; PULSE 92; TEMP 36.7; O2SAT 97; BMI 29.4
--- NOTE | 2025-05-07 12:11 | MHC.OFFWIV ---
Intake Vital Signs 05/07/25 12:11 Height 5 ft 7 in Weight 188 lb BMI 29.4 BP 144/78 H Blood Pressure Location Lt brachial Position Sitting Pulse 92 Pulse Source Pulse Oximeter Temp 98.1 F Temp Source Oral Pulse Oximetry (%) 97 Oxygen Delivery Method Room Air Intake Visit Reasons: EP-covid symptoms Patient Tobacco Use Status: Former Tobacco user Allergies codeine Allergy (Verified 05/07/25 12:25) Fainting Do you need a note to return to daycare/school/sports/work: No HPI HPI Comments History of Present Illness Details History - The patient is a 79-year-old male presenting with a persistent cough. - The cough began after returning from [facility] on April 28, following a cold contracted likely during travel. - Initially accompanied by fever, which has since resolved, leaving a lingering cough that disrupts sleep. - Admits to wheezing, denies ear pain, sinus pain or shortness of breath. - The patient has a history of using NyQuil and DayQuil during the fever phase but is currently not on any medication. - His PCP called in a cough medication for him but he has not started taking it yet. Physical Exam General: Cooperative, healthy appearing, comfortable and no acute distress Orientation/consciousness: Patient oriented x3 Limitations: No limitations Head: Normal to inspection Ears: Hearing grossly normal bilaterally, external ears normal, TM's normal Nose: Normal external nose present, Normal nares present and No nasal discharge present Face and sinus: Normal facial exam and Yes sinuses nontender Mouth: Normal oral and palatal mucosa present and moist mucous membranes Throat: Yes tonsils normal, Yes uvula midline. Posterior oropharynx erythema, no exudates Eyes: Appearance normal, both eyes and all related structures Neck: Normal visual inspection, full ROM Respiratory: slight exp wheezes bilaterally. Normal respiratory effort, able to speak in complete sentences, Actively coughing, no respiratory distress, not tachypneic, no tripod positioning and no use of accessory muscles. Cardiovascular: Regular rate and rhythm. Normal S1 and S2 Skin: No rashes or lesions noted Neuro: Patient oriented x3 Extremities: Normal to inspection and Yes no clubbing, cyanosis or edema [facility] Medical History (Updated 05/07/25 @ 12:40 by Lise De Santiago PA-C) Upper respiratory disease Hyperlipidemia HTN (hypertension) Generalized anxiety disorder Allergic rhinitis due to pollen Benign prostatic hyperplasia without lower urinary tract symptoms Persons encountering health services in other specified circumstances Pure hypercholesterolemia, unspecified Gastro-esophageal reflux disease without esophagitis Essential (primary) hypertension Acute cough Wheezing Overweight Elevated prostate specific antigen [PSA] Surgical History Hx of surgical biopsy Family History Father No problems noted. Mother CAD (coronary artery disease) Social History Housing: House Patient Tobacco Use Status: Former Tobacco user Tobacco use type: Cigarette e-Cigarette/Vaping Use: Former Use service: No Current occupational status: retired Cognitive needs: No Hearing needs: Yes (bilateral hearing aids) Vision needs: Yes (rx glasses) Review of Systems Const All systems reviewed & are unremarkable except as noted in HPI and below Physical Exam Vital Signs: BMI result Body Mass Index 29.4 Assessment & Plan Assessment & Plan (1) Lower respiratory infection (e.g., bronchitis, pneumonia, pneumonitis, pulmonitis): Code(s): J22 - Unspecified acute lower respiratory infection Plan: Plan Patient was informed and verbally consented to the use of an ambient scribe for clinic note documentation during this visit. - VSS, pt well appearing and PE remarkable for exp wheeze - A steroid taper was prescribed to alleviate respiratory symptoms and improve wheezing/breathing. - A respiratory viral panel was conducted to rule out COVID-19 and other infections. - The patient was advised to start the steroid medication promptly to manage symptoms. Orders: Orders Resp Pathogen Panel - [facility] Today J06.9 - Acute upper respiratory infection, unspecified Medications: New methylprednisolone PO PER PKG DIR for 6 days 21 ea 0RF Coding Level of Care Code Est Pt Level 3 (29784) Diagnoses Lower respiratory infection (e.g., bronchitis, pneumonia, pneumonitis, pulmonitis) J22
--- OUTSIDE RECORDS SUMMARY | 2025-05-07 12:43 | XMS_ITS | Encounter Summary ---
Author Organization [facility] Address [address] [place] [address] Care Team Providers Care Work Force Advisor Name Role Phone Name, Elvis ARITA Primary Care Provider UnavailMeghan Bautista MD Primary Care Provider Dolly Velez MD Primary Care Provider UnavailAnselmo Roman MD Primary Care Provider Bernadine Mathur DO Primary Care Provider Unavaila nataliya [facility], Pcp Primary Care Provider Unavailabl e Reason for Visit * Reason Onset Date Comments Medication 07/14/2012 Encounter Details Date Type Department Care Team Description 07/14/2012 Telephone General Surgery [address] [place] [address] Ludwig Massey MD [address] [place] [address] Medication Social History Tobacco Use Types Packs/Day [...] on filedocumented in this encounter Care Teams Work Force Advisor Relationship Specialty Start Date End Date Name, MD Elvis PCP - General Internal Medicine 09/06/11 07/24/15 Meghan Scott MD PCP - General Internal Medicine 10/24/20 12/20/20 Dolly Tatum MD PCP - General Internal Medicine 12/21/20 03/21/21 Anselmo Srivastava MD PCP - General Internal Medicine 03/22/2108/22 Bernadine Lutz DO PCP - General Internal Medicine 08/14/21 02/24/23 [facility], Pcp PCP - General Internal Medicine 02/25/23 documented as of this encounter
--- OUTSIDE RECORDS SUMMARY | 2025-05-07 12:43 | XMS_ITS | Encounter Summary ---
Author Organization [facility] Address [address] [place] [address] Care Team Providers Care Fat Pressroom Worker Name Role Phone Dolly Tatum MD Primary Care Provider Anselmo Kay MD Primary Care Provider Unavailable Bernadine Lutz DO Primary Care Provider Unavailjoe an [facility] Pcp Primary Care Provider Unavailabl e Reason for Visit * Reason Comments E-prescribe Rx Request Encounter Details Date Type Department Care Team Description 12/23/2020 Refill Adult Medicine [address] [address] Leny Grossman MD E-prescribe Rx Request Social [...] AM EDT This was not done in [place] He needs to contact the [place] office I called the pt, he has been back and fourth with this, was told this was faxed and the pharmacy has not received this Pt is out of medication He said he called over to [place] and spoke to someone as well. Pharmacy [...] 12/21/20 by Leny Grossman MD Not in [place] office, routing to [place] * Telephone Encounter - Komal Elias - 12/23/2020 10:15 AM EDT Sent to [facility]. Forwarded to [place] * Telephone Encounter - Komal Elias - 12/23/2020 10:14 AM EDT This is a duplicate, please see refill request from yesterday 12/22. Pharmacy has yet to receive. documented in this encounter Plan of Treatment Not on file documented as of this encounter Visit Diagnoses Diagnosis Anxiety Anxiety state, unspecified documented in this encounter Care Teams Fat Pressroom Worker Relationship Specialty Start Date End Date Dolly Tatum MD PCP - General Internal Medicine 12/21/20 03/21/21 Anselmo Srivastava MD PCP - General Internal Medicine 03/22/2108/22 Bernadine Lutz DO PCP - General Internal Medicine 08/14/21 02/24/23 [facility] License [facility], Pcp PCP - General Internal Medicine 02/25/23 documented as of this encounter
--- OUTSIDE RECORDS SUMMARY | 2025-05-07 12:43 | XMS_ITS | Encounter Summary ---
Author Organization [facility] Address [address] [place] [address] Care Team Providers Care Time Stamp Assembler Name Role Phone Meghan Scott MD Primary Care Provider Dolly Velez MD Primary Care Provider UnavailAnselmo Roman MD Primary Care Provider Unavailable Berandine Lutz DO Primary Care Provider Unavaila nataliya [facility] [place], Pcp Primary Care Provider Unavailabl e Reason for Visit * Reason Onset Date Comments refill request 12/19/2018 Encounter Details Date Type Department Care Team Description 12/19/2018 Refill Medicine/Pediatrics - [address] [phone] Catalina Harrison MD refill request Social History [...] encounter Miscellaneous Notes * Telephone Encounter - Naat Capellan M.A. - 12/19/2018 3:20 PM EDT Script faxed [facility]. vf * Telephone Encounter - Chula Rojas [...] N/A Patients current insurance carrier is: Payor: [facility] [employer] / Plan: POS $[id number] /Product Type: POS [id number]-[id number] documented in this encounter Plan of Treatment Not on file documented as of this encounter Visit Diagnoses Diagnosis Anxiety Anxiety state, unspecified documented in this encounter Care Teams Time Stamp Assembler Relationship Specialty Start Date End Date Meghan Scott MD PCP - General Internal Medicine 10/24/20 12/20/20 Dolly Tatum MD PCP - General Internal Medicine 12/21/20 03/21/21 Anselmo Srivastava MD PCP - General Internal Medicine 03/22/2108/22 Bernadine Lutz DO PCP - General Internal Medicine 08/14/21 02/24/23 [facility] [place], Pcp PCP - General Internal Medicine 02/25/23 documented as of this encounter
--- OUTSIDE RECORDS SUMMARY | 2025-05-07 12:43 | XMS_ITS | Encounter Summary ---
Author Organization [facility] Address [address] [place] [address] Care Team Providers Care Bellows Tester Name Role Phone Bernadine Lutz DO Primary Care Provider Willie an [facility], Pcp Primary Care Provider Jennie e Encounter Details Date Type Department Care Team Description 11/01/2021 PNO Controlled Substance Contract Medical Records [address] [place] [address] Abstract, Provider Social History Tobacco Use Types Packs/Day Years Used Date Smoking Tobacco: Former Cigarettes 1.5 25 Smokeless Tobacco: Never Comments:quit 20 yrs ago Alcohol Use Standard Drinks/Week Comments No 0 (1 standard drink = 0.6 oz pur e alcohol) very rare Sex Assigned at Date Recorded Not on file COVID-19 Exposure Response Date Recorded In the last month, have you been in contact with someone who was confirmed or suspected to have Coronavirus / COVID-19? No / Unsure 10/30/2021 8:19 AM EST documented as of this encounter Plan of Treatment Not on file documented as of this encounter Visit Diagnoses Not on filedocumented in this encounter Care Teams Bellows Tester Relationship Specialty Start Date End Date Bernadine Lutz DO PCP - General Internal Medicine 08/14/21 02/24/23 [facility], Pcp PCP - General Internal Medicine 02/25/23 documented as of this encounter
--- OUTSIDE RECORDS SUMMARY | 2025-05-07 12:43 | XMS_ITS | Clinical Summary ---
Author Organization [facility] Address [address] [place] [address] Care Team Providers Care Music Historian Name Role Phone Community, Pcp Primary Care Provider Unavailabl e Allergies Active Allergy Reactions Severity Noted Date Comments Codeine-Guaifenesin OTHER 11/12/2011 Passed out cold Medications Medication Sig Dispensed Refills Start Date End Date Status [place]-3 Fatty Acids (FISH OIL) 1000 MG CPDR [...] SHINGLES VACCINE (2 of 3) 02/02/2014 12/08/2013 BMI CHECK/ADVISE 09/02/2024 04/17/2022, (Completed), 09/23/2019, Additional history exists Covid-19 Vaccine (2022-10 4 season) 2025 07/02/2022, 08/01/2021, 01/28/2021, Additional history exists INFLUENZA (#1) 2025 06/28/2021, 06/02, 06/20/2018, Additional history exists CHOLESTEROL SCREENING 02/24/2026 02/24/2021 , 09/23/2019, 03/23/2019, Additional history exists HEPATITIS C SCREENING Completed 11/24/2013 PNEUMOCOCCAL VACCINE Completed 03/23/2019, 11/12/19 12 Care Teams Music Historian Relationship Specialty Start Date End Date Community, Pcp PCP - General Internal Medicine 02/25/23
--- OUTSIDE RECORDS SUMMARY | 2025-05-07 12:43 | XMS_ITS | Patient Health Record ---
Author Organization [facility] Address [address] [place] [address] Care Team Providers Care Commissions Specialist Name Role Phone Sonny Dolan Unavailable [phone] Reason For Referral No Information Plan Of Treatment No Information
--- OUTSIDE RECORDS SUMMARY | 2025-05-07 12:43 | XMS_ITS | Encounter Summary ---
Author Organization [facility] Address [address] [place] [address] Care Team Providers Care Internet Site Designer Name Role Phone Meghan Scott MD Primary Care Provider Unava Dolly uF MD Primary Care Provider Unavaila Anselmo Powell MD Primary Care Provider Unavailable Bernadine Lutz DO Primary Care Provider Unavaila nataliya [facility], Pcp [facility] Encounter Details Date Type Department Care Team Description 11/23/2020 [facility] Medical Records [address] [place] [address] Abstract, Provider Social History Tobacco Use Types [...] on filedocumented in this encounter Care Teams Internet Site Designer Relationship Specialty Start Date End Date Meghan Scott MD PCP - General Internal Medicine 10/24/20 12/20/20 Dolly Tatum MD PCP - General Internal Medicine 12/21/20 03/21/21 Anselmo Srivastava MD PCP - General Internal Medicine 03/22/2108/22 Bernadine Lutz DO PCP - General Internal Medicine 08/14/21 02/24/23 [facility], Pcp PCP - General Internal Medicine 02/25/23 documented as of this encounter
--- OUTSIDE RECORDS SUMMARY | 2025-05-07 12:43 | XMS_ITS | Encounter Summary ---
Author Organization [facility] Address [address] [place] [address] Care Team Providers Care Accountant Bookkeeper Name Role Phone Anselmo Srivastava MD Primary Care Provider Unavailable Bernadine Lutz DO [facility] Primary Care Provider Unavailabl e Reason for Visit * Reason Onset Date Comments refill request 07/13/2021 Encounter Details Date Type Department Care Team Description 07/13/2021 Refill Adult Medicine - [address] [address] Anselmo Srivastava MD refill request Social History [...] N/A Patients current insurance carrier is: Payor: [employer] PL[employer] / [id number] /Product Type: POS [id number] documented in this encounter Plan of Treatment Not on file documented as of this encounter Visit Diagnoses Not on filedocumented in this encounter Care Teams Accountant Bookkeeper Relationship Specialty Start Date End Date Anselmo Srivastava MD PCP - General Internal Medicine 03/22/2108/22 Bernadine Lutz DO PCP - General Internal Medicine 08/14/21 02/24/23 [facility] PCP - General Internal Medicine 02/25/23 documented as of this encounter
--- OUTSIDE RECORDS SUMMARY | 2025-05-07 12:43 | XMS_ITS | Encounter Summary ---
Author Organization [facility] Address [address] [place] [address] Care Team Providers Care Crop Specialist Name Role Phone Meghan Scott MD Primary Care Provider Unava Dolly Fu MD Primary Care Provider UnavailAnselmo Roman MD Primary Care Provider Unavailable Bernadine Luzt DO Primary Care Provider Unavaila nataliya [facility], Pcp [facility] Encounter Details Date Type Department Care Team Description 09/12/2015 Controlled Substance Plan Medical Records [address] [place] [id number] Abstract, Provider Social History Tobacco Use Types [...] on filedocumented in this encounter Care Teams Crop Specialist Relationship Specialty Start Date End Date Meghan Scott MD PCP - General Internal Medicine 10/24/20 12/20/20 Dolly Tatum MD PCP - General Internal Medicine 12/21/20 03/21/21 Anselmo Srivastava MD PCP - General Internal Medicine 03/22/2108/22 Bernadine Lutz DO PCP - General Internal Medicine 08/14/21 02/24/23 [facility], Pcp PCP - General Internal Medicine 02/25/23 documented as of this encounter
--- OUTSIDE RECORDS SUMMARY | 2025-05-07 12:43 | XMS_ITS | Encounter Summary ---
Author Organization [facility] Address [address] [place] [address] Care Team Providers Care Legal Office Administrator Name Role Phone Name, Elvis ARITA Primary Care Provider UnavailMeghan Bautista MD Primary Care Provider Dolly Velez MD Primary Care Provider UnavailAnselmo Roman MD Primary Care Provider Bernadine Mathur DO Primary Care Provider Unavaila nataliya [facility], Pcp Primary Care Provider Unavailabl e Reason for Visit * Reason Onset Date Comments refill request 08/04/2012 Encounter Details Date Type Department Care Team Description 08/04/2012 Refill Adult Medicine [address] [address] Name, MD Elvis refill request Social History [...] [employer] [id number] Product Type: POS [id number] documented in this encounter Plan of Treatment Not on file documented as of this encounter Visit Diagnoses Not on filedocumented in this encounter Care Teams Legal Office Administrator Relationship Specialty Start Date End Date Name, MD Elvis PCP - General Internal Medicine 09/06/11 07/24/15 Meghan Scott MD PCP - General Internal Medicine 10/24/20 12/20/20 Dolly Tatum MD PCP - General Internal Medicine 12/21/20 03/21/21 Anselmo Srivastava MD PCP - General Internal Medicine 03/22/2108/22 Bernadine Lutz DO PCP - General Internal Medicine 08/14/21 02/24/23 [facility], Pcp PCP - General Internal Medicine 02/25/23 documented as of this encounter
--- OUTSIDE RECORDS SUMMARY | 2025-05-07 12:43 | XMS_ITS | Encounter Summary ---
Author Organization [facility] Address [address] [place] [address] Care Team Providers Care Assembler Latches And Springs Name Role Phone Bernadine Lutz DO Primary Care Provider Willie an [facility], Pcp Primary Care Provider Unavailmiguel e Encounter Details Date Type Department Care Team Description 11/30/2021 [facility] Medical Records [address] [place] [address] Abstract, Provider Social History Tobacco Use Types [...] on filedocumented in this encounter Care Teams Assembler Latches And Springs Relationship Specialty Start Date End Date Bernadine Lutz DO PCP - General Internal Medicine 08/14/21 02/24/23 [facility], Pcp PCP - General Internal Medicine 02/25/23 documented as of this encounter
--- OUTSIDE RECORDS SUMMARY | 2025-05-07 12:43 | XMS_ITS | Encounter Summary ---
Author Organization [facility] Address [address] [place] [address] Care Team Providers Care Marine Engineering Teacher Name Role Phone Meghan Scott MD Primary Care Provider Unava Dolly Fu MD Primary Care Provider UnavailAnselmo Roman MD Primary Care Provider Unavailable Bernadine Lutz DO Primary Care Provider Unavaila nataliya [facility], Pcp Primary Care Provider Unavailformerly [facility] e Encounter Details Date Type Department Care Team Description 03/31/2019 [facility] Medical Records [address] [place] [id number] Abstract, Provider Social History Tobacco Use Types [...] on filedocumented in this encounter Care Teams Marine Engineering Teacher Relationship Specialty Start Date End Date Meghan Scott MD PCP - General Internal Medicine 10/24/20 12/20/20 Dolly Tatum MD PCP - General Internal Medicine 12/21/20 03/21/21 Anselmo Srivastava MD PCP - General Internal Medicine 03/22/2108/22 Bernadine Lutz DO PCP - General Internal Medicine 08/14/21 02/24/23 [facility], Pcp PCP - General Internal Medicine 02/25/23 documented as of this encounter
== END 2025-05-07 13:27 | disposition home or self-care (01) ==
PROVIDERS: PCP Student in an Organized Health Care Education/Training Program; Visit Provider Physician Assistant
DX: J22 Unspecified acute lower respiratory infection (principal)

== ENCOUNTER 2025-08-16 08:06 | Outpatient (REF) | payer OTHER, SELFPAY ==
--- OUTSIDE RECORDS SUMMARY | 2025-08-16 08:41 | XMS_ITS | Patient Health Record ---
Author Organization [facility] Address [address] [place] [address] Care Team Providers Care Volleyball Referee Name Role Phone Sonny Dolan Unavailable [phone] Reason For Referral No Information Plan Of Treatment No Information
[2025-08-16 11:49] LABS: Prostate Specific Antigen 3.38 ng/mL (<0.05-4.0)
== END 2025-08-16 08:07 | disposition home or self-care (01) ==
LOC: HO.WFDLDS 08:06
PROVIDERS: Visit Provider Nurse Practitioner Family
DX: N40.1 Benign prostatic hyperplasia with lower urinary tract symptoms (principal); R35.1 Nocturia; R35.0 Frequency of micturition; R97.20 Elevated prostate specific antigen [PSA]; Z12.5 Encounter for screening for malignant neoplasm of prostate
CPT/HCPCS: 36415; 84153

== ENCOUNTER 2025-08-30 11:37 | Outpatient (AMB) | payer OTHER, SELFPAY ==
--- NOTE | 2025-08-30 11:37 | A.OFFVIS_ITS ---
Intake Visit Reasons: 4m/PSA/UA Intake Note: Patient is present for 4M/PSA/PVR Urology Medication:FINASTERIDE Antibiotic Allergy:NONE Blood Thinner:NONE Labs done 08/16/25 PSA 3.38 TODAY'S PVR:0ML'S Rn Clinical Resource Required: No Accompanied by: Self / Same As Patient Allergies codeine Allergy (Verified 08/30/25 16:03) Fainting Medication List - Last Reconciled 08/30/25 by Isabel Singh [facility]- dextromethorphan-guaifenesin 5-100 mg/5 mL 10 mL PO Q4-8H PRN 5 days finasteride 5 mg PO DAILY 90 days losartan 50 mg PO DAILY methylprednisolone PO PER PKG DIR for 6 days nifedipine ER (Procardia XL) 60 mg PO DAILY 90 days omeprazole 40 mg PO DAILY simvastatin 20 mg PO BEDTIME solifenacin (Vesicare) 5 mg PO DAILY 30 days trazodone 150 mg PO BEDTIME PRN HPI Comments Details: Zach Ford is a very pleasant 80-year-old male patient of Dr. Mcmanus. He has a past medical history of anxiety, allergic rhinitis, hypercholesteremia, GERD, hypertension, and overweight. He presents to the office today for follow-up of his elevated PSA. In discussion with the patient today reports to be doing and feeling well. He reports compliance with finasteride 5 mg daily as prescribed. Recent PSA results reviewed with the patient today as noted and trended below. PSAs: 06/23 4.7, 03/24 4.9 and% free PSA 18, 06/24 6.4, 06/24 6.0 and% free PSA 17%, 08/24 7.4 and % free PSA 18% 12/24 2.4 04/25 3.7, 06/25 3.0, 10/27 2.5, 04/26 3.7, 08/26 3.4 Previous workup has included a retroperitoneal ultrasound 08/24 noting bilateral kidneys with no calculi, lesions, and or hydronephrosis noted. The bladder is well distended and normal. Pre void bladder volume is approximately 160 mL. Postvoid bladder volume is approximately 20 mL. Prostate volume is approximately 35 mL. We did discuss slight decrease in PSA over the last 4 months. In office urinalysis results reviewed with the patient today. PVR 0 mL. He does report episodes of nocturia. He reports feeling symptoms are somewhat manageable as there are nights he only experiences nocturia 2 times per night however feels they are other nights where he will experience nocturia up to 4 times per night. He does also discusses longstanding history of sleep disturbance. He reports previously he had been on sleep aids however did not find this helpful and th erefore has discontinued the medication. We did discussed potential causes of nocturia as well as further treatment options and risks and benefits of these treatment options. He denies incontinence, hematuria, dysuria, foul smelling urine, changes to urinary stream, flank pain, fever, and or chills. He otherwise offers no other issues or concerns at this time. [facility] Medical History Upper respiratory disease Hyperlipidemia HTN (hypertension) Generalized anxiety disorder Allergic rhinitis due to pollen Benign prostatic hyperplasia without lower urinary tract symptoms Persons encountering health services in other specified circumstances Pure hypercholesterolemia, unspecified Gastro-esophageal reflux disease without esophagitis Essential (primary) hypertension Acute cough Wheezing Overweight Elevated prostate specific antigen [PSA] Surgical History Hx of surgical biopsy Family History Father No problems noted. Mother CAD (coronary artery disease) Social History Housing: House Patient Tobacco Use Status: Former Tobacco user Tobacco use type: Cigarette e-Cigarette/Vaping Use: Former Use service: No Current occupational status: retired Cognitive needs: No Hearing needs: Yes (bilateral hearing aids) Vision needs: Yes (rx glasses) Review of Systems Const Reports as per HPI Eyes Reports no additional complaints ENT Reports no additional complaints Card Reports as per HPI Resp Reports no additional complaints GI Reports as per HPI Reports as per HPI Musc Reports no additional complaints Neuro Reports no additional complaints Psych Reports no additional complaints Endo Reports no additional complaints Jorge/Lymph Reports no additional complaints Aller/Immun Reports no additional complaints Physical Exam Const General: cooperative, healthy appearing, comfortable, no acute distress, well developed, alert and awake Orientation/consciousness: patient oriented x3 Limitations: wheelchair HEENT Head: Yes normal to inspection, Yes normocephalic and Yes atraumatic Ears: hearing grossly normal bilaterally Eyes General: appearance normal, both eyes and all related structures Neck Neck: Yes normal visual inspection and Yes trachea midline Chest Chest palpation & inspection: normal inspection of the chest Resp Effort & Inspection: normal respiratory effort and able to speak in complete sentences Cardio Rate: regular rate GI Inspection: Yes normal to inspection Rectal Exam - Male: Yes visual inspection normal, Yes normal sphincter tone and Yes prostate normal General: Yes no CVA tenderness Back/Spine/Pelvis Back: no CVA tenderness Skin General skin exam: no rashes or lesions noted Neuro General: patient oriented x3 Extrem General: Yes normal to inspection Psych Appearance: grossly normal and well kempt Mental Status: mental status grossly normal Speech and movement: Normal speech and movement present and Clear speech present Affect: normal affect Attitude: cooperative Thought process: Normal thought process present Thought content: Normal thought content present Insight: Fair insight present (Psych) Judgement: Fair judgement present (Psych) Office Procedures Post Void Residual Post Residual Void Post Void Residual (PVR): 0 35401-Ziuz Void Residual by ultrasound Results AMB Urinalysis, Automated UA Leukoctes 0 Conchita/uL Last Edit by Irene Centeno [facility] on 08/30/25 11:46 UA Nitrite Negative Last Edit by [facility] Jacobo [facility] on 08/30/25 11:46 UA Urobilinogen 0.2 mg/dL Last Edit by Irene Centeno [facility] on 08/30/25 11:46 UA Protein 30 mg/dL Last Edit by Irene Jacobo [facility] on 08/30/25 11:46 UA pH 6.0 Last Edit by Irene Centeno [facility] on 08/30/25 11:46 UA Blood 0 Stevie/uL Last Edit by [facility] on 08/30/25 11:46 UA Specific Buckner 1.015 Last Edit by [facility] Jacobo [facility] on 08/30/25 11:4 6 UA Ketone Negative Last Edit by Irenedaniele Centeno [facility] on 08/30/25 11:46 UA Bilirubin 0 mg/dL Last Edit by Irene Jacobo [facility] on 08/30/25 11:46 UA Glucose 0 mg/dL Last Edit by Irene Jacobo [facility] on 08/30/25 11:46 Results Reviewed Results Reviewed: Laboratory Last Values Urine pH (Auto) 6.0 08/30/25 11:39 Specific [place] (Auto) 1.015 08/30/25 11:39 Urine Protein (Auto) 30 mg/dL 08/30/25 11:39 Glucose (UA)(Auto) 0 mg/dL 08/30/25 11:39 Urine Ketones (Auto) Negative 08/30/25 11:39 Urine Blood (Auto) 0 Stevie/uL 08/30/25 11:39 Urine Nitrite (Auto) Negative 08/30/25 11:39 Urine Bilirubin (Auto) 0 mg/dL 08/30/25 11:39 Urine Urobilinogen (Auto) 0.2 mg/dL 08/30/25 11:39 Leukocyte Esterase (Auto) 0 Conchita/uL 08/30/25 11:39 Assessment & Plan Assessment & Plan (1) Elevated prostate specific antigen [PSA]: Code(s): R97.20 - Elevated prostate specific antigen [PSA] Category: Medical (2) Enlarged prostate: Code(s): N40.0 - Benign prostatic hyperplasia without lower urinary tract symptoms Category: Medical Plan Office urinalysis results with the patient today; as noted above. PVR 0 mL. Continue finasteride. Most recent PSA results reviewed with the patient today; as noted above. We did discussed potential causes of nocturia as well as further treatment options and risks and benefits of these treatment options. We did discuss potential sleep study. Start VESIcare 5 mg as discussed and prescribed. All questions were answered. We did discussed importance of limiting fluids 2-3 hours prior to bed to decrease episodes of nocturia. Will continue with surveillance monitoring. Follow-up in 1-3 months with repeat PSA and PVR; or sooner with any issues, concerns, and or questions. Orders: Orders AMB Post Void Residual by ultrasound Today N40.1 - Benign prostatic hyperplasia with lower urinary tract symptoms AMB Urinalysis Automated Today N13.8 - Other obstructive and reflux uropathy, N40.1 - Benign prostatic hyperplasia with lower urinary tract symptoms Prostate Specific Antigen 4 Months N40.0 - Benign prostatic hyperplasia without lower urinary tract symptoms, R97.20 - Elevated prostate specific antigen [PSA] Medications: New solifenacin (Vesicare) 5 mg PO DAILY 30 tabs 3RF 30 days Patient Instructions: The patient had an opportunity to ask questions regarding the treatment plan. All questions were answered. Physical exam, labs, and imaging were discussed and reviewed in detail. As well as risks, benefits, and discussion of treatment choices. No major barriers to understanding were identified. The patient expressed understanding and agreement with the above treatment plan. The patient was made aware they should contact our office by phone for worsening of their current condition, the appearance of new symptoms, or with any questions or concerns. Compliance is encouraged with any medications and follow up testing that is ordered. It is a privilege to be allowed the opportunity to participate in? your urological care.? Again, if you have any questions or concerns If you have any questions or concerns please do not hesitate to contact me. The office is [phone]. This note is constructed using voice recognition software. While every effort has been made to ensure accuracy clinical academic allergist errors may have been included. Yours sincerely, MAURICE Rendon Coding Level of Care Code Est Pt Level 4 (72582) Add On Problem Visit Only Diagnoses Elevated prostate specific antigen [PSA] R97.20 Enlarged prostate N40.0 CPT Codes Post Residual Void - PVR CPT Code: 92880-Xcej Void Residual by ultrasound ([id number])
--- OUTSIDE RECORDS SUMMARY | 2025-08-30 13:40 | XMS_ITS | Patient Health Record ---
Author Organization [facility] Address [address] [place] [id number] Care Team Providers Care Educational Programming Director Name Role Phone Sonny Dolan Unavailable [phone] Reason For Referral No Information Plan Of Treatment No Information
== END 2025-08-30 12:03 | disposition home or self-care (01) ==
LOC: HO.HUSH 11:39
PROVIDERS: PCP Internal Medicine; Visit Provider Nurse Practitioner Family
DX: N40.1 Benign prostatic hyperplasia with lower urinary tract symptoms (principal); N13.8 Other obstructive and reflux uropathy; R97.20 Elevated prostate specific antigen [PSA]; N40.0 Benign prostatic hyperplasia without lower urinary tract symptoms
CPT/HCPCS: 99214

== ENCOUNTER → 2025-08-30 11:37 | Outpatient (BNVA) | payer OTHER, SELFPAY | PROVIDERS: PCP Internal Medicine; Visit Provider Nurse Practitioner Family | DX: R97.20 Elevated prostate specific antigen [PSA] (principal); N40.1 Benign prostatic hyperplasia with lower urinary tract symptoms; N13.8 Other obstructive and reflux uropathy; Z79.899 Other long term (current) drug therapy | CPT/HCPCS: 51798; 81003; 99212 ==